=== PATIENT | male | born 1980 | race Caucasian/White ===

== ENCOUNTER → 2020-10-06 | Outpatient (CLI) | payer MEDICAID, SELFPAY ==
--- NOTE | 2020-10-06 09:30 | VAS_PTH ---
PATIENT: FREDI RUSSELL LOC: ED U#:[id number] AGE/SX: 40/M ROOM: RE10/06/[address]: Dr. Juan C Calles MD : 1980 BED: DIS: 10/06/2020 SPEC #: [id number] RECD: 10/06/20 11:25 STATUS: SMITH RODNEY #: [id number] MONICA: 10/06/20 09:[address]: Juan C Calles DEPT: SURGICAL PATHOLOGY RECD BY: Diamond Dooley ENTERED: 10/06/20 12:09 SP TYPE: VAS OTHR DR: Dr. Damien Calles III, MD Tissues: A - Vas deferens, NOS B - Vas deferens, NOS Procedures: Surgery Specimen Level II HEADER OPERATION: Bilateral partial vasectomy PRE-OP DIAGNOSIS: Sterilization TISSUE SUBMITTED: A - Right vas deferens, B - Left vas deferens MICROSCOPIC DIAGNOSIS A. Right vas deferens, segmental vasectomy: Complete cross-section of vas deferens with no pathologic change. B. Left vas deferens, segmental vasectomy: Complete cross-section of vas deferens with no pathologic change. AM:pablito 10/09/2020 MICROSCOPIC DESCRIPTION Slides are reviewed. GROSS DESCRIPTION A - Received is one container designated right vas deferens. The specimen consists of a tubular segment of smith soft tissue measuring 1 cm in length and 0.1 cm in diameter. The entire specimen is submitted in one cassette. It will be sectioned at the time of embedding. B - Received is one container designated left vas deferens. The specimen consists of a tubular segment of smith soft tissue measuring 1.5 cm in length and 0.2 cm in diameter. The entire specimen is submitted in one cassette. It will be sectioned at the time of embedding. / SANTOSH:pablito 10/06/20 TC:4 CPT: 46240 x2
== END | disposition home or self-care (01) ==
LOC: LABSPEC 11:33
PROVIDERS: PCP Family Medicine; Referring Provider Surgery; Visit Provider Surgery
DX: Z30.2 Encounter for sterilization (principal)
CPT/HCPCS: 88302

== ENCOUNTER → 2020-10-30 | Outpatient (CLI) | payer MEDICAID, SELFPAY | END | disposition home or self-care (01) | LOC: LABSPEC 09:36 | PROVIDERS: PCP Family Medicine; Visit Provider Surgery | DX: Z30.2 Encounter for sterilization (principal) | CPT/HCPCS: 89321 ==

== ENCOUNTER → 2020-11-21 | Outpatient (CLI) | payer MEDICAID, SELFPAY | END | disposition home or self-care (01) | PROVIDERS: PCP Family Medicine; Referring Provider Surgery; Visit Provider Surgery | DX: Z30.2 Encounter for sterilization (principal) ==

== ENCOUNTER → 2020-12-20 | Outpatient (CLI) | payer MEDICAID, SELFPAY ==
[2020-12-21 13:08] LABS: Semen Analysis Post Vas REVIEWED
== END | disposition home or self-care (01) ==
PROVIDERS: Surgery; PCP Family Medicine; Referring Provider Family Medicine; Visit Provider Family Medicine
DX: Z30.2 Encounter for sterilization (principal)
CPT/HCPCS: 89321

== ENCOUNTER 2025-07-04 18:19 | Emergency (ER) | payer MEDICAID, SELFPAY ==
[2025-07-04 18:21] VITALS: BP 129/71; PULSE 59; RESP 18; TEMP 36.9; O2SAT 98; BMI 29.0
[2025-07-04 18:38] LABS: Mucous, Urine 0 SEEN /hpf (<or=2+); Red Blood Cells-Urine 0 SEEN /hpf (0-5); Squamous Epithelial Cells - UA 0 SEEN /hpf (0-5)
[2025-07-04 19:00] LABS: Hematocrit 41.6 % (40-54); Hemoglobin 14.6 g/dL (13.0-16.5); Immature Granulocytes Count 0.020 X10^3/uL (0.0-0.0); Mean Corp Hgb Conc 35.1 g/dL (32-36); Mean Corpuscular Volume 91.8 fL (80-94); Mean Platelet Vol. 9.4 fl (6.2-12.0); NRBC Flagged by Analyzer 0 % (0-5); Platelet Count 183 K/mm3 (150-450); RBC Distribution Width CV 11.9 % (11.6-14.6); RBC Distribution Width SD 40.0 fl (35.1-43.9); Red Blood Count 4.53 M/mm3 (4.6-6.2); White Blood Count 6.9 K/mm3 (4.4-11.0)
[2025-07-04 19:23] LABS: AST(SGOT) 26 U/L (<=37); Alanine Aminotransfer ALT/SGPT 26 U/L (<=46); Albumin, Serum 4.6 g/dL (3.5-5.0); Alkaline Phosphatase 71 U/L (40-129); Anion Gap 10 (7-18); BUN 13 mg/dL (4-19); BUN/Creat Ratio 13.6 RATIO (10-20); Calcium,Total 9.4 mg/dL (7.6-11.0); Carbon Dioxide 26.0 mmol/L (20.0-29.0); Chloride 104 mmol/L (96-106); Estimated Creatinine Clearance 99.82 ml/min (50-250); Globulin 2.2 g/dL (2.2-4.2); Glucose 89 mg/dL (70-99); Potassium 4.1 mmol/L (3.5-5.1)
[2025-07-04 19:32] LABS: Color, Urine Straw (Yellow); Glucose, Dipstick Normal (Normal); Ketone-Dipstick Negative (Negative); Leukocyte Esterase-Dipstick Negative /ul (Negative); Nitrite-Dipstick Negative (Negative); Occult Blood-Urine Negative /ul (Negative); Protein-Dipstick Negative (Negative); Specific Gravity, Urine 1.015 (1.002-1.030); Urine Bilirubin Dipstick Negative (Negative)
[2025-07-04 20:19] VITALS: BP 131/82; PULSE 61; O2SAT 100
--- NOTE | 2025-07-04 20:42 | ED.VIS.GI ---
HPI HPI - GI History of Present Illness Chief Complaint: Abd Pain Informant: patient Narrative Narrative: 45-year-old male presented to the emergency room chief complaint of abdominal pain. Patient states that today he developed a pain just below his umbilicus into the right inguinal region. He states he feels an awful lot like when he had a hernia that was repaired on the left side. Denies any nausea vomiting or diarrhea in fact notes some mild constipation. He denies any fevers. He notes no urinary symptoms. There is a familial history of kidney stones. [facility] Medical History GERD (gastroesophageal reflux disease) Encounter for sterilization Home Medications ?Medication ?Instructions ?Recorded ?Last Taken ?Type naproxen sodium 220 mg tablet 220 mg PO BID PRN 09/28/20 Unknown History (Aleve) ibuprofen 400 mg tablet 400 mg PO Q8H 01/03/23 Unknown History Allergy/AdvReac Type Severity Reaction Status Date / Time No Known Allergies Allergy Verified 07/04/25 18:20 Family History Father No problems noted. Surgical History History of vasectomy (~10/2020) History of left inguinal hernia repair History of tooth extraction History of back surgery History of adenoidectomy History of myringotomy Social History Smoking Status: Current some day smoker tobacco type: cigarettes ROS ROS ED Constitutional Constitutional ED: Denies chills, fever(s) or weight loss Eyes Eyes: Denies change in vision or diplopia ENT ENT ED: Denies ear pain, rhinorrhea or sore throat Cardiovascular Cardiovascular: Denies chest pain, orthopnea, palpitations or racing heartbeat Respiratory/Chest Respiratory/Chest: Denies cough, dyspnea or orthopnea Gastrointestinal Gastrointestinal: Reports abdominal pain; Denies diarrhea, nausea or vomiting Genitourinary Genitourinary ED: Denies dysuria, hematuria or urinary frequency Musculoskeletal Musculoskeletal: Denies arthralgias or myalgias Integumentary Denies abscess or rash Neurologic Neurologic: Denies headache(s) or weakness Psychiatric Psychiatric: Denies anxiety, depression, suicidal ideation or suicidal thoughts Endocrine Endocrinology: Denies polydipsia, polyphagia or polyuria Allergic/Immunologic Allergic/Immunologic ED: Denies mouth swelling, tongue swelling or urticaria EXAM Physical Exam Const Vital Signs: 07/04/25 18:21 07/04/25 20:19 07/04/25 22:00 Temperature 98.5 F Temperature Source Oral Pulse Rate 59 L 61 59 L Respiratory Rate 18 16 Blood Pressure 129/71 H 131/82 H 131/76 H Blood Pressure Mean 90 98 94 Pulse Ox 98 100 99 Oxygen Delivery Method Room Air Room Air Room Air 07/04/25 22:25 Temperature 98 F Temperature Source Pulse Rate 59 L Respiratory Rate 16 Blood Pressure 131/76 H Blood Pressure Mean 94 Pulse Ox 99 Oxygen Delivery Method Positive well nourished and well developed General Appearance ED: well developed and NAD HEENT Reports normocephalic, head/scalp atraumatic and moist mucous membranes Eyes PERRL and EOMs intact bilaterally Neck no lymphadenopathy, supple and no JVD Resp normal respiratory effort and clear to auscultation bilaterally Cardio regular rate, regular rhythm and no murmurs GI non-distended and no masses Auscultation: normoactive bowel sounds Palpation: soft and tender RLQ and suprapubic; Negative for guarding, rigid or rebound tenderness present Back/Spine no CVA tenderness and normal ROM Extremity normal to inspection General Extremety ED: Negative for edema General Extremity: Negative for edema Neuro oriented x3 and CN's II-XII intact bilaterally Sensorium / Orientation: alert Motor Exam: strength 5/5 throughout Psych mental status grossly normal Mood & Affect: Negative for depressed or tearful Skin no rashes or lesions noted and no wounds MDM MDM MDM Narrative Medical decision making narrative: Differential diagnosis includes but not limited to appendicitis diverticulitis colitis hernia ureterolithiasis Basic blood work was normal shows a white count of 6.9 with a normal differential. Urinalysis with no hematuria or obvious infection. CT of the abdomen pelvis does not demonstrate any findings to explain his pain. However I do not see anything emergent. Would recommend PCP follow-up if not improving return if worsening or concerns History & Record Review Discussion w/independent historian: Patient Lab Data Attestation: I reviewed the patient's lab results. Labs: Laboratory Results - last 24 hr 07/04/25 07/04/25 18:30 18:46 WBC 6.9 RBC 4.53 L Hgb 14.6 Hct 41.6 MCV 91.8 MCH 32.2 H MCHC 35.1 RDW Std Deviation 40.0 RDW Coeff of Ana Laura 11.9 Plt Count 183 MPV 9.4 Immature Gran % (Auto) 0.300 Neut % (Auto) 68.9 Lymph % (Auto) 21.3 [place] % (Auto) 8.3 Eos % (Auto) 0.9 Baso % (Auto) 0.3 Absolute Neuts (auto) 4.7 Absolute Lymphs (auto) 1.46 Nucleated RBC % 0 Sodium 140 Potassium 4.1 Chloride 104 Carbon Dioxide 26.0 Anion Gap 10 BUN 13 Creatinine 0.99 Estim Creat Clear Calc 99.82 Est GFR (MDRD) Non-Af 96 BUN/Creatinine Ratio 13.6 Glucose 89 Calcium 9.4 Total Bilirubin 2.02 H AST 26 ALT 26 Alkaline Phosphatase 71 Total Protein 6.7 Albumin 4.6 Globulin 2.2 Albumin/Globulin Ratio 2.1 Urine Color Straw Urine Clarity Clear Urine pH 6.0 Ur Specific Coleman 1.015 Urine Protein Negative Urine Glucose (UA) Normal Urine Ketones Negative Urine Occult Blood Negative Urine Nitrite Negative Urine Bilirubin Negative Urine Urobilinogen Normal Ur Leukocyte Esterase Negative Urine RBC 0 SEEN Urine WBC 0 SEEN Ur Squamous Epith Cells 0 SEEN Urine Bacteria 0 SEEN Urine Mucus 0 SEEN Radiography Diagnostic Testing: Clinical Impression(s) from Imaging Studies Abdomen/Pelvis CT 07/04/25 21:00 IMPRESSION: No acute or active inflammatory intra-abdominal pathology. Normal appendix. Reading Location: [id number] Discharge Plan Triage Chief Complaint: Abd Pain ED Provider: Luis Reno Dx/Rx/DC Orders Clinical Impression: Abdominal pain, acute Instructions: Abdominal Pain Prescriptions: No Action naproxen sodium [Aleve] 220 mg tablet 220 mg PO BID PRN ibuprofen 400 mg tablet 400 mg PO Q8H Primary Care Provider: Jareth Newberry Referrals: Jareth Newberry DPM [Primary Care Provider, Medical] Print Language: Setswana Disposition Disposition: Home, Self Care Discharge Date/Time: 07/04/25 22:54
[2025-07-04] MEDS: Ketorolac 30 MG/ML Syringe IV (20:47)
--- NOTE | 2025-07-04 21:00 | CT_ITS ---
PROCEDURE: CT ABDOMEN/PELVIS W IV CONT ONLY 07/04/2025 REASON FOR EXAM: RLQ PAIN TECHNIQUE: Procedure Code: [id number] Modality: CT Procedure: ABDOMEN/PELVIS W IV CONT ONLY Coronal and Sagittal reconstruction series were provided. CONTRAST: Isovue 370 VOLUME: 89 mL One or more dose reduction techniques were used (e.g., Automated exposure control, adjustment of the mA and/or kV according to patient size, use of iterative reconstruction technique. RADIATION DOSE SUMMARY: DLP: 976.86 mGycm COMPARISON: None. FINDINGS: Lung bases: Clear. Liver: Mild diffuse hepatic steatosis. Few scattered small hypodense lesions too small to definitively characterize but most likely benign cysts and/or hemangiomata. Gallbladder: Unremarkable. No biliary ductal dilatation. Spleen: Unremarkable. Pancreas: Unremarkable. Adrenals: Unremarkable. Kidneys: Unremarkable. No urolithiasis or hydronephrosis. Bladder: Unremarkable. Reproductive Organs: Unremarkable. Nonenlarged prostate. Bowel: No evidence of obstruction or active inflammation. Normal appendix. Lymph nodes: No suspicious lymph node enlargement. Vasculature: Normal caliber abdominal aorta. Mild atherosclerotic disease. Peritoneum / Retroperitoneum: No ascites or free air. Bones: Partially imaged postoperative changes to the lower thoracolumbar spine with metallic wilberto fixation hardware of the posterior elements. CT/Abdomen/Pelvis W IV Cont ONLY IMPRESSION: No acute or active inflammatory intra-abdominal pathology. Normal appendix. Reading Location: [id number]
--- OUTSIDE RECORDS SUMMARY | 2025-07-04 21:17 | XMS RPT_ITS | CCD ---
Author Organization [facility] Care Team Providers Care Public Health Worker Name Role Phone Unavailable Primary Care Provider Enoc Ayala Attending Unavailable Tyshawn Hill Attending Unavailable Enoc Andrews Attending Unavailable Unavailable Primary Care Provider Nima Wagner MD Primary Care Provider Podlogar REGISTERED RADIOLOGIC TECHNOLOGIST.Cinthia GARNETT Unavailable Podlogar REGISTERED RADIOLOGIC TECHNOLOGIST.Cinthia GARNETT Unavailable [place]le REGISTERED RADIOLOGIC TECHNOLOGIST.Ilene GARNETT Unavailable MELANY NEWBERRY Attending Finn mcghee SELF Referring Unavailable [facility] Primary Care Unavai lable [place]le REGISTERED RADIOLOGIC TECHNOLOGIST.Ilene GARNETT Unavailable Katherine Newberry DOland Aleks Primary Care Provid er SANDIE TREVINO Referring Unavailable NIMA VILLALTA Primary Care Unavailab NIMA Pillai Primary Care Unavailab NIMA Pillai Primary Care Unavailab CINTHIA Norris Attending Unavailable YARIEL CARTER Referring Unavailable TESTRAKELUZ Referring Unavailable TESTRAKELUZ Attending Unavailable TESTRAKELUZ Referring Unavailable TESTRAKELUZ Referring Unavailable TESTRAKE, LUZ Attending Unavailable SELF Referring Unavailable YARIEL CARTER Attending Unavailable TESTLUZ ROSAS Attending Unavailable MELANY NEWBERRY Referring Unavai lable ROHITH [facility] ALEKS Primary Care Unavai lable Medications Current Medications Medication Drug Class(es) Dates Sig (Normalized) Sig (Original) amoxicillin 875 mg / clavulanate 125 mg oral tablet (2 sources) Penicillin-class Antibacterial Start: 5 End: 5 take 1 tablet by mouth twice daily amoxicillin-clavulana te potassium (AUGMENTIN) 875-125 mg per tablet Take 1 tablet by mouth two times a day for 7 days. 14 tablet 10/19/2024 10/26/2024 Active ASHWAGANDHA ROOT EXTRACT PO (2 sources) ASHWAGANDHA ROOT EXTRACT PO Take by mouth. Active Creatine (2 sources) creatine monohyd rate (CREATINE ORAL) Take by mouth. Active MEDICATION, NON-DATABASE (2 sources) MEDICATION, NON-DATABASE [id number] Active methylPREDNISolone (2 sources) Corticosteroid Start: End: methylPREDNISolone (MEDROL, HALIMA,) 4 mg Dose-Pack Take as directed 21 tablet 03/30/2024 04/05/2024 Active polyethylene glycol 3350 172464 mg / potassium chloride 2970 mg / sodium bicarbonate 6740 mg / sodium chloride 5860 mg / sodium sulfate 74543 mg powder for oral solution (1 source) Osmotic Laxative Start: End: peg 3350-Electrolytes (GOLYTELY) 236-22.74-6.74 -5.86 gram suspension Indications: Screening for colon cancer Take 4,000 mL by mouth one time only for 1 dose. Refer to printed prep instructions from your provider. 4000 mL 04/20/2024 04/20/2024 Active SHILAJIT PO (2 sources) SHILAJIT PO Take by mouth. Active Completed/Discontinued Medications Medication Drug Class(es) Dates Sig (Normalized) Sig (Original) benzonatate 100 mg oral capsule (3 sources) Non-narcotic Antitussive Start: 10-19-2024 End: 03-11-2025 take 1 capsule by mouth every eight hours as needed benzonatate (TESSALON PERLE) 100 mg capsule Take 1 capsule by mouth three times a day as needed. 21 capsule 10/19/2024 03/11/2025 Discontinued (Course of therapy completed) dexamethasone 1 mg/ml / neomycin 3.5 mg/ml / polymyxin b 60680 unt/ml ophthalmic suspension (7 sources) Aminoglycoside Antibacterial, Polymyxin-class Antibacterial, Corticosteroid Start: 11-07-2022 End: 04-20-2024 take 1 drop(s) into the eye(s) three times daily NEOMYCIN-POLYMYXI N-DEXAMETH 3.5 MG/ML-10,000 UNIT/ML-0.1% EYE DROPS Use 1 Drop in both eyes three times daily. 5 mL 11/07/2022 04/20/2024 Discontinued (Course of therapy completed) Start: 11-07-2022 take 1 drop(s) into the eye(s) three times daily LMRVHZXL-AXEUWQPCB-WWDHXSRG 3.5 MG/ML-10,000 UNIT/ML-0.1% EYE DROPS Use 1 Drop in both eyes three times daily. 5 mL 0 11/07/2022 Active Comment on above: Use 1 Drop in both e yes three times daily. erythromycin 0.005 mg/mg ophthalmic ointment (2 sources) Macrolide, Macrolide Antimicrobial Start: 10-28-19 End: 11-08-19 apply 3.5 g into the eye(s) twice daily erythromycin (ROMYCIN) 5 mg/gram (0.5 %) ophthalmic ointment Apply along lash line/upper eyelids twice a day for one week 3.5 g 0 10/27/2022 11/07/2022 Discontinued Comment on above: Apply along lash juan e/upper eyelids twice a day for one week ibuprofen 200 mg oral tablet (20 sources) Nonsteroidal Anti-inflammatory Drug Start: 05-09-20 End: 10-28-19 take 200-400 mg by mouth every six hours as needed ibuprofen (MOTRIN) 200 mg tablet Take 1-2 tablets by mouth every 6 hours as needed for Pain (Take with food.). 0 05/09/2014 10/27/2022 Discontinued (Course of therapy completed) End: 03-11-2025 take 1 tablet by mouth every six hours as needed ibuprofen (MOTRIN) 600 mg tablet Take 600 mg by mouth every 6 hours as needed for pain. 03/11/2025 Discontinued (Side Effects) Comment on above: Take 1-2 tablets by mouth every 6 hours as needed for Pain (Take with food.). naproxen sodium 220 mg oral tablet (20 sources) Nonsteroidal Anti-inflammatory Drug Start: 4 End: take 1 tablet by mouth twice daily at mealtime naproxen sodium (ANAPROX) 220 mg tablet Take 1 tablet by mouth twice daily with meals. TAKE WITH FOOD 0 05/09/2014 10/27/2022 Discontinued (Course of therapy completed) End: 03-11-2025 naproxen sodium (ALEVE ORAL) Take by mouth. 03/11/2025 Discontinued (Course of therapy completed) naproxen sodium (ALEVE ORAL) Take by mouth. Active Comment on above: Take 1 tablet by abhilash th twice daily with meals. TAKE WITH FOOD Problems Active Problems Problem Classification Problem Date Documented Da te Episodic/Chronic Administrative/social admission (4 sources) First encounter by subject; Translations: [Persons encountering health services in other specified circumstances] Onset: 5 04-20-2024 Episodic Anxiety disorders (7 sources) Mixed anxiety and depressive disorder; Translations: [Anxiety disorder, unspecified] Onset: 5 07-16-2024 Chronic Contraceptive and procreative management (1 source) Vasectomy status; Translations: [History of vasectomy] Onset: Episodic Immunizations and screening for infectious disease (5 sources) Patient encounter status; Translations: [Encounter for screening for human immunodeficiency virus [HIV]] 04-20-2024 Episodic Inflammation; infection of eye (except that caused by tuberculosis or sexually transmitteddisease) (2 sources) Blepharitis of bilateral upper eyelids; Translations: [Unspecified blepharitis right upper eyelid] Episodic Mood disorders (2 sources) Mood disorders; Translations: [Anxiety and depression] Onset: Other acquired deformities (1 source) Postural kyphosis; Translations: [Postural kyphosis, thoracic region] 04-20-2024 Chronic Other acquired deformities (1 source) Unspecified kyphosis, site unspecified; Translations: [Kyphosis, unspecified kyphosis type, unspecified spinal region] Onset: Chronic Other acquired deformities (3 sources) Kyphosis deformity of spine; Translations: [Unspecified kyphosis, site unspecified] Onset: 5 03-13-2025 Chronic Other and unspecified benign neoplasm (3 sources) Neuroma; Translations: [Benign neoplasm of peripheral nerves and autonomic nervous system, unspecified] 03-30-2024 Episodic Other connective tissue disease (4 sources) Capsulitis; Translations: [Other enthesopathies, not elsewhere classified] 03-30-2024 Episodic Other connective tissue disease (2 sources) Pain in right foot; Translations: [Pain in right foot] 05-04-2024 Episodic Other gastrointestinal disorders (1 source) Personal history of other diseases of the digestive system; Translations: [History of hernia repair] Onset: 5 Episodic Other injuries and conditions due to external causes (1 source) Injury of right foot; Translations: [Unspecified injury of right foot, sequela] 05-28-2024 Episodic Other lower respiratory disease (2 sources) Cough; Translations: [Acute cough] 10-19-2024 Episodic Other male genital disorders (2 sources) Spermatocele of epididymis, unspecified; Translations: [Spermatocele] Onset: Episodic Other male genital disorders (2 sources) Spermatocele; Translations: [Spermatocele of epididymis, unspecified] 03-13-2025 Episodic Other non-traumatic joint disorders (2 sources) Acute ankle pain; Translations: [Pain in right ankle and joints of right foot] 03-01-2024 Episodic Other upper respiratory infections (1 source) Acute upper respiratory infection; Translations: [Acute upper respiratory infection, unspecified] 10-19-2024 Episodic Otitis media and related conditions (1 source) Acute left otitis media; Translations: [Otitis media, unspecified, left ear] 10-19-2024 Episodic Residual codes; unclassified (2 sources) Other specified postprocedural states; Translations: [Other specified postprocedural states] Onset: 3 Episodic Residual codes; unclassified (1 source) Family history of malignant neoplasm of other organs or systems; Translations: [Family history of malignant neoplasm of skin] Onset: 5 Episodic Residual codes; unclassified (3 sources) History of hernia repair; Translations: [Other specified postprocedural states] Onset: 5 03-13-2025 Episodic Residual codes; unclassified (3 sources) Family history of malignant neoplasm of skin; Translations: [Family history of malignant neoplasm of other organs or systems] Onset: 5 03-13-2025 Episodic Spondylosis; intervertebral disc disorders; other back problems (1 source) Chronic low back pain; Translations: [Chronic bilateral low back pain without sciatica] 04-20-2024 Episodic Substance-related disorders (2 sources) Cannabis abuse; Translations: [Cannabis abuse, uncomplicated] Onset: 5 07-16-2024 Chronic Unclassified (1 source) Low back pain, unspecified; Translations: [Low back pain, unspecified] Onset: 3 Unclassified (1 source) Acute cough; Translations: [Acute cough] Onset: 5 Unclassified (1 source) Multiple Concerns Onset: 4 Past or Other Problems Problem Classification Problem Date Documented Da te Episodic/Chronic Abdominal pain (20 sources) Inguinal pain; Translations: [Lower abdominal pain, unspecified] Onset: 07-31-2015 Resolved: 07-19-2016 07-19-2016 Episodic E Codes: Natural/environment (5 sources) Repetitive motion disorder; Translations: [Overexertion from repetitive movements, initial encounter] Onset: 05-27-2024 05-04-2024 Episodic Other and unspecified benign neoplasm (1 source) Benign neoplasm of peripheral nerves and autonomic nervous system, unspecified; Translations: [Neuroma] Onset: 05-17-2024 Episodic Other connective tissue disease (20 sources) Chronic pain of right foot; Translations: [Pain in right foot] Onset: 10-06-2023 03-01-2024 Episodic Other connective tissue disease (20 sources) Myofascial pain; Translations: [Myalgia, other site] Onset: 09-04-2015 Resolved: 07-19-2016 07-19-2016 Episodic Other connective tissue disease (1 source) Other enthesopathies, not elsewhere classified; Translations: [Capsulitis of foot, right] Onset: 05-17-2024 Episodic Other connective tissue disease (1 source) Pain in right foot; Translations: [Right foot pain] Onset: 05-04-2024 Episodic Residual codes; unclassified (20 sources) Tobacco use and exposure - finding; Translations: [Tobacco use] Onset: 07-30-2018 07-30-2018 Episodic Unclassified (1 source) First encounter by subject 03-13-2025 Results Test Name Value Interpretation Reference Range Facility CBC W Auto Differential pane l (Bld)on 03-18-2025 Basophils (Bld) [#/Vol] 10*3/uL Normal <0.11 [facility] Comment on above: Order Comment: Speci men Type: BLOOD SPECIMENOrdering Facility: [facility] Address: [address] [place] [address] Performed By: #### 5 7021-8 ####[facility] [id number] [place] [address] [place] Basophils/100 WBC (Bld) 0.2 % Normal [facility] Comment on above: Order Comment: Speci men Type: BLOOD SPECIMENOrdering Facility: [facility] Address: [address] [place] [address] Performed By: #### 5 7021-8 ####[facility]CL[facility] [id number] [place] [address] [place] Differential cell count method Nom (Bld) Auto Normal [facility] Comment on above: Order Comment: Speci men Type: BLOOD SPECIMENOrdering Facility: [facility] Address: [address] [place] [address] Performed By: #### 5 7021-8 ####[facility] [id number] [place] [address] [place] Eosinophils (Bld) [#/Vol] 0.07 10*3/uL Normal <0.46 [facility] Comment on above: Order Comment: Speci men Type: BLOOD SPECIMENOrdering Facility: [facility] Address: [address] [place] [address] Performed By: #### 5 7021-8 ####[facility] [id number] [place] [address] [place] Eosinophils/100 WBC (Bld) 1.6 % Normal [facility] Comment on above: Order Comment: Speci men Type: BLOOD SPECIMENOrdering Facility: [facility] Address: [address] [place] [address] Performed By: #### 5 7021-8 ####[facility] [id number] [place] [address] [place] Erythrocyte distribution width (RBC) [Ratio] 11.9 % Normal 11.5-15.0 [facility] Comment on above: Order Comment: Speci men Type: BLOOD SPECIMENOrdering Facility: [facility] Address: [address] [place] [address] Performed By: #### 5 7021-8 ####[facility] [id number] [place] [address] [place] Hematocrit (Bld) [Volume fraction] 43.0 % Normal 39.0-51.0 [facility] Comment on above: Order Comment: Speci men Type: BLOOD SPECIMENOrdering Facility: [facility] Address: [address] [place] [address] Performed By: #### 5 7021-8 ####[facility] [id number] [place] [address] [place] Hemoglobin (Bld) [Mass/Vol] 15.1 g/dL Normal 13.0-17.0 [facility] Comment on above: Order Comment: Speci men Type: BLOOD SPECIMENOrdering Facility: [facility] Address: [address] [place] [address] Performed By: #### 5 7021-8 ####[facility]IA [id number] [place] [address] [place] Immature granulocytes (Bld) [#/Vol] 10*3/uL Normal <0.10 [facility] Comment on above: Order Comment: Speci men Type: BLOOD SPECIMENOrdering Facility: [facility] Address: [address] [place] [address] Performed By: #### 5 7021-8 ####[facility]IA [id number] [place] [address] [place] Immature granulocytes/100 WBC (Bld) 0.2 % Normal [facility] Comment on above: Order Comment: Speci men Type: BLOOD SPECIMENOrdering Facility: [facility] Address: [address] [place] [address] Performed By: #### 5 7021-8 ####[facility] [id number] [address], [facility] [place] Lymphocytes (Bld) [#/Vol] 1.90 10*3/uL Normal 1.00-4.00 [facility] Comment on above: Order Comment: Speci men Type: BLOOD SPECIMENOrdering Facility: [facility] Address: [address] [place] [address] Performed By: #### 5 7021-8 ####[facility] [id number] [address], [place] [address] [place] Lymphocytes/100 WBC (Bld) 42.3 % Normal [facility] Comment on above: Order Comment: Speci men Type: BLOOD SPECIMENOrdering Facility: [facility] Address: [address] [place] [address] Performed By: #### 5 7021-8 ####[facility] [id number] [address], [facility] [place] MCH (RBC) [Entitic mass] 31.7 pg Normal 26.0-34.0 [facility] Comment on above: Order Comment: Speci men Type: BLOOD SPECIMENOrdering Facility: [facility] Address: [address] [place] [address] Performed By: #### 5 7021-8 ####[facility] [id number] [address], [facility] [place] MCHC (RBC) [Mass/Vol] 35.1 g/dL Normal 30.5-36.0 [facility] Comment on above: Order Comment: Speci men Type: BLOOD SPECIMENOrdering Facility: [facility] Address: [address] [place] [address] Performed By: #### 5 7021-8 ####[facility] [id number] [place] [id number] [place] MCV (RBC) [Entitic vol] 90.3 fL Normal 80.0-100.0 [facility] Comment on above: Order Comment: Speci men Type: BLOOD SPECIMENOrdering Facility: [facility] Address: [address] [place] [address] Performed By: #### 5 7021-8 ####[facility] [id number] [place] [address] [place] Monocytes (Bld) [#/Vol] 0.34 10*3/uL Normal <0.87 [facility] Comment on above: Order Comment: Speci men Type: BLOOD SPECIMENOrdering Facility: [facility] Address: [address] [place] [address] Performed By: #### 5 7021-8 ####[facility] [id number] [place] [address] [place] Monocytes/100 WBC (Bld) 7.6 % Normal [facility] Comment on above: Order Comment: Speci men Type: BLOOD SPECIMENOrdering Facility: [facility] Address: [address] [place] [address] Performed By: #### 5 7021-8 ####[facility] [id number] [place] [address] [place] Neutrophils (Bld) [#/Vol] 2.16 10*3/uL Normal 1.45-7.50 [facility] Comment on above: Order Comment: Speci men Type: BLOOD SPECIMENOrdering Facility: [facility] Address: [address] [place] [address] Performed By: #### 5 7021-8 ####[facility] [id number] [place] [address] [place] Neutrophils/100 WBC (Bld) 48.1 % Normal [facility] Comment on above: Order Comment: Speci men Type: BLOOD SPECIMENOrdering Facility: [facility] Address: [address] [place] [address] Performed By: #### 5 7021-8 ####[facility] [id number] [place] [address] [place] Nucleated RBC (Bld) [#/Vol] 10*3/uL Normal <0.01 [facility] Comment on above: Order Comment: Speci men Type: BLOOD SPECIMENOrdering Facility: [facility] Address: [address] [place] [address] Performed By: #### 5 7021-8 ####[facility] LABIA [id number] [place] [address] [place] Nucleated RBC/100 WBC (Bld) [Ratio] 0.0 /100 WBC Normal [facility] Comment on above: Order Comment: Speci men Type: BLOOD SPECIMENOrdering Facility: [facility] Address: [address] [place] [address] Performed By: #### 5 7021-8 ####[facility]IA [id number] [place] [address] [place] Platelet mean volume (Bld) [Entitic vol] 10.2 fL Normal 9.0-12.7 [facility] Comment on above: Order Comment: Speci men Type: BLOOD SPECIMENOrdering Facility: [facility] Address: [address] [place] [address] Performed By: #### 5 7021-8 ####[facility] [id number] [place] [id number] [place] Platelets (Bld) [#/Vol] 207 10*3/uL Normal 150-400 [facility] Comment on above: Order Comment: Speci men Type: BLOOD SPECIMENOrdering Facility: [facility] Address: [address] [place] [address] Performed By: #### 5 7021-8 ####[facility] [id number] [address] [address] [place] RBC (Bld) [#/Vol] 4.76 10*6/uL Normal 4.20-6.[address] [facility] Comment on above: Order Comment: Speci men Type: BLOOD SPECIMENOrdering Facility: [facility] Address: [address] [place] [address] Performed By: #### 5 7021-8 ####[facility] [id number] [address] [place] [address] [place] WBC (Bld) [#/Vol] 4.49 10*3/uL Normal 3.70-11.[address] [facility] Comment on above: Order Comment: Speci men Type: BLOOD SPECIMENOrdering Facility: [facility] Address: [address] [place] [address] Performed By: #### 5 7021-8 ####[facility] [id number] [address], [facility] [place] Comprehensive metabolic 2000 panelon 03-18-2025 Albumin [Mass/Vol] 4.7 g/dL Normal 3.9-4.9 [facility] Comment on above: Order Comment: Speci men Type: BLOOD SPECIMENOrdering Facility: [facility] Address: [address] [place] [address] Performed By: #### 2 4323-8, 17517-3, 3016-3 ####[facility] [id number] [address] [place] [address] [place] ALP [Catalytic activity/Vol] 65 U/L Normal 38-113 [facility] Comment on above: Order Comment: Speci men Type: BLOOD SPECIMENOrdering Facility: [facility] Address: [address] [place] [address] Performed By: #### 2 4323-8, 05681-3, 3016-3 ####[facility] [id number] [address] [place] [address] [place] ALT [Catalytic activity/Vol] 16 U/L Normal 10-54 [facility] Comment on above: Order Comment: Speci men Type: BLOOD SPECIMENOrdering Facility: [facility] Address: [address] [place] [address] Performed By: #### 2 4323-8, 52948-8, 3016-3 ####[facility]CL[facility] [id number] [place] [id number] [place] Anion gap [Moles/Vol] 15 mmol/L Normal 8-15 [facility] Comment on above: Order Comment: Speci men Type: BLOOD SPECIMENOrdering Facility: [facility] Address: [address] [place] [address] Performed By: #### 2 4323-8, 93531-5, 6-3 ####[facility]CL[facility] [id number] [place] [id number] [place] AST [Catalytic activity/Vol] 18 U/L Normal 14-40 [facility] Comment on above: Order Comment: Speci men Type: BLOOD SPECIMENOrdering Facility: [facility] Address: [address] [place] [address] Performed By: #### 2 4323-8, 18051-0, 6-3 ####[facility]CL[facility] [id number] [place] [id number] [place] Bilirubin [Mass/Vol] 2.1 mg/dL High 0.2-1.3 [facility] Comment on above: Order Comment: Speci men Type: BLOOD SPECIMENOrdering Facility: [facility] Address: [address] [place], [place] [address] Performed By: #### 2 4323-8, 90605-4, 3016-3 ####[facility] [id number] [facility] [address] [place] [address] [place] Calcium [Mass/Vol] 9.5 mg/dL Normal 8.5-10.2 [facility] Comment on above: Order Comment: Speci men Type: BLOOD SPECIMENOrdering Facility: [facility] Address: [address] [place], [place] [address] Performed By: #### 2 4323-8, 41773-0, 3016-3 ####[facility]CL[facility] [id number] [facility] [address] [address] [place] Chloride [Moles/Vol] 104 mmol/L Normal 98-107 [facility] Comment on above: Order Comment: Speci men Type: BLOOD SPECIMENOrdering Facility: [facility] Address: [address] [place], [place] [address] Performed By: #### 2 4323-8, 63902-9, 6-3 ####[facility] [id number] [address] [address] [place] CO2 [Moles/Vol] 21 mmol/L Low 22-30 [facility] Comment on above: Order Comment: Speci men Type: BLOOD SPECIMENOrdering Facility: [facility] Address: [address] [place], [place] [address] Performed By: #### 2 4323-8, 63488-4, 6-3 ####[facility] [id number] [address] [address] [place] Creatinine [Mass/Vol] 0.96 mg/dL Normal 0.73-1.22 [facility] Comment on above: Order Comment: Speci men Type: BLOOD SPECIMENOrdering Facility: [facility] Address: [address] [place] [address] Performed By: #### 2 4323-8, 66530-4, 6-3 ####[facility] LABCLIA [id number] [facility] [address] [place] [address] [place] eGFRcr SerPlBld CKD-EPI 2020 99 mL/min/1.73m??? Normal >=60 [facility] Comment on above: Order Comment: Eric perla Type: BLOOD SPECIMENOrdering Facility: [facility] Address: [address] [id number] Result Comment: Kristina mated Glomerular Filtration Rate (eGFR) is calculated using the 2020 CKD-EPI creatinine equation. This equation utilizes serum creatinine, sex, and age as parameters. The creatinine assay has traceable calibration to isotope dilution-mass spectrometry. Refer to KDIGO guidelines for clinical interpretation. In patients with unstable renal function, e.g. those with acute kidney injury, the eGFR may not accurately reflect actual GFR. Performed By: #### 2 4323-8, 12068-0, 3015-3 ####[facility] LABIA [id number] [place] [id number] [place] Glucose [Mass/Vol] 92 mg/dL Normal 74-99 [facility] Comment on above: Order Comment: Eric perla Type: BLOOD SPECIMENOrdering Facility: [facility] Address: [address] [place] [address] Result Comment: The [place] Diabetes Association (ADA) provides guidance for cutoff values for fasting glucose and random glucose. The ADA defines fasting as no caloric intake for at least 8 hours. Fasting plasma glucose results between 100 to 125 mg/dL indicate increased risk for diabetes (prediabetes). Fasting plasma glucose results greater than or equal to 126 mg/dL meet the criteria for diagnosis of diabetes. In the absence of unequivocal hyperglycemia, results should be confirmed by repeat testing. In a patient with classic symptoms of hyperglycemia or hyperglycemic crisis, random plasma glucose results greater than or equal to 200 mg/dL meet the criteria for diagnosis of diabetes. Reference: Standards of Medical Care in Diabetes 2016, [place] Diabetes Association. Diabetes Care. 2016.39(Suppl 1). Performed By: #### 2 4323-8, 22965-0, 3 ####[facility] LABIA [id number] [address] [address] [place] Potassium [Moles/Vol] 4.4 mmol/L Normal 3.7-5.1 [facility] Comment on above: Order Comment: Eric perla Type: BLOOD SPECIMENOrdering Facility: [facility] Address: [address] [place] [address] Performed By: #### 2 4323-8, 87672-4, 6-3 ####[facility] LABIA [id number] [address] [address] [place] Protein [Mass/Vol] 6.8 g/dL Normal 6.3-8.0 [facility] Comment on above: Order Comment: Speci men Type: BLOOD SPECIMENOrdering Facility: [facility] Address: [address] [place] [address] Performed By: #### 2 4323-8, 32472-0, 3015-3 ####[facility] LABIA [id number] [place] [id number] [place] Sodium [Moles/Vol] 140 mmol/L Normal 136-144 [facility] Comment on above: Order Comment: Speci men Type: BLOOD SPECIMENOrdering Facility: [facility] Address: [address] [place] [address] Performed By: #### 2 4323-8, 74005-1, 3015-3 ####[facility] LABIA [id number] [place] [address] [place] Urea nitrogen [Mass/Vol] 17 mg/dL Normal 9-24 [facility] Comment on above: Order Comment: Speci men Type: BLOOD SPECIMENOrdering Facility: [facility] Address: [address] [place] [address] Performed By: #### 2 4323-8, 03840-4, 3015-3 ####[facility] LABIA [id number] [address] [address] [place] Lipid 1996 panelon 5 Cholesterol [Mass/Vol] 195 mg/dL Normal <200 [facility] Comment on above: Order Comment: Speci men Type: BLOOD SPECIMENOrdering Facility: [facility] Address: [address], [place] [address] Result Comment: <200 mg/dL, Desirable 200-239 mg/dL, Borderline high >239 mg/dL, High Performed By: #### 2 4323-8, 36856-1, 6-3 ####[facility] LABCLIA [id number] [facility] [address] [address] [place] Cholesterol in HDL [Mass/Vol] 59 mg/dL Normal >39 [facility] Comment on above: Order Comment: Speci men Type: BLOOD SPECIMENOrdering Facility: [facility] Address: [address] [place] [address] Result Comment: 40-5 9 mg/dL, Acceptable >59 mg/dL, High: Negative risk factor for coronary heart disease <40 mg/dL, Low: Positive risk factor for coronary heart disease Performed By: #### 2 4323-8, 41242-4, 3015-3 ####[facility] LABCLIA [id number] [facility] [address] [place] [address] [place] Cholesterol in LDL [Mass/Vol] 125 mg/dL High <100 [facility] Comment on above: Order Comment: Speci men Type: BLOOD SPECIMENOrdering Facility: [facility] Address: [address] [place] [address] Result Comment: <100 mg/dL, Optimal 100-129 mg/dL, Near optimal/above optimal 130-159 mg/dL, Borderline high 160-189 mg/dL, High >189 mg/dL, Very high Secondary prevention optimal LDL Cholesterol levels are recommended to be <70 mg/dL LDL cholesterol is calculated using the [place]-NIH equation. Performed By: #### 2 4323-8, 00229-6, 3015-3 ####[facility] LABCLIA [id number] [facility] [id number] [place] [address] [place] Cholesterol in LDL/Cholesterol in HDL [Mass ratio] 2.12 {ratio} Normal <2.54 [facility] Comment on above: Order Comment: Speci men Type: BLOOD SPECIMENOrdering Facility: [facility] Address: [address] [place] [address] Result Comment: Refe rence: 1. National Cholesterol Education Program ATP III Guideline At-A-Glance Quick Desk Reference: National Heart, Lung, and Blood Ant[place]. National Institutes of Health. 2001: NIH Publication No. 01-3305. 2. An International Atherosclerosis Society position paper: global recommendations for the management of dyslipidemia: executive summary, Atherosclerosis. 2014: 232(2):410-413. Performed By: #### 2 4323-8, 55534-9, 3016-3 ####[facility] LABCLIA [id number] [address] [address] [place] Cholesterol in VLDL [Mass/Vol] 10 mg/dL Normal <30 [facility] Comment on above: Order Comment: Eric perla Type: BLOOD SPECIMENOrdering Facility: [facility] Address: [address] [place] [address] Performed By: #### 2 4323-8, 30745-7, 3016-3 ####[facility] LABIA [id number] [address] [address] [place] Cholesterol non HDL [Mass/Vol] 136 mg/dL High <130 [facility] Comment on above: Order Comment: Eric perla Type: BLOOD SPECIMENOrdering Facility: [facility] Address: [address] [place] [address] Result Comment: <130 mg/dL, Optimal 130-159 mg/dL, Near optimal/above optimal 160-189 mg/dL, Borderline high 190-219 mg/dL, High >219 mg/dL, Very high Secondary prevention optimal non HDL Cholesterol levels are recommended to be <100 mg/dL Performed By: #### 2 4323-8, 09792-6, 3016-3 ####[facility] LABIA [id number] [address] [address] [place] Cholesterol.total/Chol esterol in HDL [Mass ratio] 3.31 {ratio} Normal <5.10 [facility] Comment on above: Order Comment: Eric perla Type: BLOOD SPECIMENOrdering Facility: [facility] Address: [facility] [place] [id number] Performed By: #### 2 4323-8, 90888-3, 3016-3 ####[facility] LABCLIA [id number] [place] [id number] [place] FASTING TIME 12 hrs Normal [facility] Comment on above: Order Comment: Speci men Type: BLOOD SPECIMENOrdering Facility: [facility] Address: [address] [place] [address] Performed By: #### 2 4323-8, 85854-7, 6-3 ####[facility] LABCLIA [id number] [address], [facility]95 [place] Triglyceride [Mass/Vol] 58 mg/dL Normal <150 [facility] Comment on above: Order Comment: Speci men Type: BLOOD SPECIMENOrdering Facility: [facility] Address: [address] [place] [address] Result Comment: <150 mg/dL, Normal 150-199 mg/dL, Borderline high 200-499 mg/dL, High >499 mg/dL, Very high Performed By: #### 2 4323-8, 78872-5, 6-3 ####[facility] LABIA [id number] [place] [address] [place] TSH SerPl-aCncon 03-18-2025 TSH Qn 1.590 m[IU]/L Normal 0.270-4.200 [facility] Comment on above: Order Comment: Speci men Type: BLOOD SPECIMENOrdering Facility: [facility] Address: [address] [place], [place] [address] Performed By: #### 2 4323-8, 26248-2, 6-3 ####[facility] LABCLIA [id number] [address] [id number] [place] Urinalysis complete panel (U )on 03-18-2025 Bacteria LM.HPF (Urine sed) [#/Area] Negative Normal Negative [facility] Comment on above: Order Comment: Speci men Type: URINE SPECIMENOrdering Facility: [facility] Address: [address] [place] [address] Performed By: #### 2 4356-8 ####[facility] LABCLIA [id number] [address] [place] [address] [place] Bilirubin Ql (U) Negative Normal Negative [facility] Comment on above: Order Comment: Speci men Type: URINE SPECIMENOrdering Facility: [facility] Address: [address] [place] [address] Performed By: #### 2 4356-8 ####[facility] LABCLIA [id number] [place] [address] [place] Clarity (Unsp spec) Clear Normal Clear [facility] Comment on above: Order Comment: Speci men Type: URINE SPECIMENOrdering Facility: [facility] Address: [address] [place] [address] Performed By: #### 2 4356-8 ####[facility] LABCLIA [id number] [place] [id number] [place] Color (U) Yellow Normal Yellow [facility] Comment on above: Order Comment: Speci men Type: URINE SPECIMENOrdering Facility: [facility] Address: [address] [place] [address] Performed By: #### 2 4356-8 ####[facility] LABCLIA [id number] [address], [facility]95 [place] Epithelial cells LM.HPF (Urine sed) [#/Area] None Seen Normal [facility] Comment on above: Order Comment: Speci men Type: URINE SPECIMENOrdering Facility: [facility] Address: [address] [place] [address] Performed By: #### 2 4356-8 ####[facility] LABCLIA [id number] [address], [facility]95 [place] Glucose Test strip (U) [Mass/Vol] Negative Normal Negative [facility] Comment on above: Order Comment: Speci men Type: URINE SPECIMENOrdering Facility: [facility] Address: [address] [place] [address] Performed By: #### 2 4356-8 ####[facility] LABCLIA [id number] [address] [place] [address] [place] Hemoglobin Ql (U) Negative Normal Negative [facility] Comment on above: Order Comment: Speci men Type: URINE SPECIMENOrdering Facility: [facility] Address: [address] [place] [address] Performed By: #### 2 4356-8 ####[facility] LABCLIA [id number] [place] [address] [place] Hyaline casts (Urine sed) [#/Area] 0 /[LPF] Normal 0 /LPF [facility] Comment on above: Order Comment: Speci men Type: URINE SPECIMENOrdering Facility: [facility] Address: [address] [place] [address] Performed By: #### 2 4356-8 ####[facility] LABCLIA [id number] [place] [address] [place] Ketones Ql (U) Negative Normal Negative [facility] Comment on above: Order Comment: Speci men Type: URINE SPECIMENOrdering Facility: [facility] Address: [address] [place] [address] Performed By: #### 2 4356-8 ####[facility] LABCLIA [id number] [place] [id number] [place] Leukocyte esterase Test strip Ql (U) Negative Normal Negative [facility] Comment on above: Order Comment: Speci men Type: URINE SPECIMENOrdering Facility: [facility] Address: [address] [place] [address] Performed By: #### 2 4356-8 ####[facility] LABCLIA [id number] [place] [address] [place] Nitrite Ql (U) Negative Normal Negative [facility] Comment on above: Order Comment: Speci men Type: URINE SPECIMENOrdering Facility: [facility] Address: [address] [place] [address] Performed By: #### 2 4356-8 ####[facility] LABIA [id number] [place] [address] [place] pH (U) 7.5 [pH] Normal 5.0-8.0 [facility] Comment on above: Order Comment: Speci men Type: URINE SPECIMENOrdering Facility: [facility] Address: [address] [place] [address] Performed By: #### 2 4356-8 ####[facility] LABIA [id number] [place] [address] [place] Protein (U) [Mass/Vol] Negative Normal Negative [facility] Comment on above: Order Comment: Speci men Type: URINE SPECIMENOrdering Facility: [facility] Address: [address] [place] [address] Performed By: #### 2 4356-8 ####[facility] LABIA [id number] [place] [address] [place] RBC LM.HPF (Urine sed) [#/Area] 0-2 /HPF Normal 0-2 /HPF [facility] Comment on above: Order Comment: Speci men Type: URINE SPECIMENOrdering Facility: [facility] Address: [address] [place] [address] Performed By: #### 2 4356-8 ####[facility] LABIA [id number] [place] [address] [place] Specific gravity (U) [Rel density] 1.022 Normal 1.005-1.030 [facility] Comment on above: Order Comment: Speci men Type: URINE SPECIMENOrdering Facility: [facility] Address: [address] [place] [address] Performed By: #### 2 4356-8 ####[facility] [id number] [place] [address] [place] Urobilinogen Ql (U) 0.2 EU/dL Normal 0.2-1.0 EU/dL Cl [facility] Comment on above: Order Comment: Speci men Type: URINE SPECIMENOrdering Facility: [facility] Address: [address] [place] [address] Performed By: #### 2 4356-8 ####[facility] [id number] [place] [address] [place] WBC LM.HPF (Urine sed) [#/Area] 0-5 /HPF Normal 0-5 /HPF [facility] Comment on above: Order Comment: Speci men Type: URINE SPECIMENOrdering Facility: [facility] Address: [address] [place] [address] Performed By: #### 2 4356-8 ####[facility] [id number] [place] [address] [place] CNOVon 03-11-2025 CNOV Office Visit (FPDOYL ) EDVIN TRAMMELL ([id number]) 1980 M Date Time Provider Department 03/11/25 3:45 PM MELANY NEWBERRY During your visit today, we recorded the following information about you: Temperature Pulse Blood pressure Weight 98.3 degrees 74/minute 120/70 86.2 kg Height 1.727 m Melany Newberry DO 03/13/2025 7:07 PM Signed Subjective The patient is a 45-year-old male presenting for evaluation of a six-month history of a testicular lump. Testicular Lump: - Edvin Trammell noticed a lump on the testicle approximately 6 months ago. - Appeared after a vasectomy. - Edvin reports a history of a hernia repair, with subsequent scrotal discomfort. Skin Lesions: - Multiple skin lesions, some of which are new. - Lesions are not raised but start off itchy. - Family history of melanoma in mother. Kyphosis: - Edvin underwent back surgery with wilberto placement for kyphosis. - Reports that the rods are now broken. Foot Injury: - Torn ligament in the foot from soccer. - Has been over a year since Edvin was last seen by a doctor for this issue. Lifestyle: - Works in construction. - Exercises regularly, including push-ups. - Does not smoke; consumes marijuana nightly before bed. - Drinks alcohol occasionally. - Recently stopped drinking soda and completed a 96-hour water fast. - Eats gluten-free bread. Family History: - Mother has melanoma and degenerative disc disease. - Full-blooded brother had a severe hiatal hernia. Additional Concerns: - Edvin reports occasional lightheadedness after exercise. - Occasional chest pain, attributed to physical activity. - Nocturia resolved after fasting. - No issues with erectile dysfunction; reports improvement after fasting. - Experiences stress related to family and work. Review of Systems Ears/Nose/Mouth/Throat : (-) dysphagia Cardiovascular: (+) chest pain Respiratory: (-) shortness of breath Gastrointestinal: (-) nausea, (-) vomiting, (-) diarrhea, (-) constipation, (-) hematochezia, (-) heartburn Genitourinary: (+) testicular lump, (-) nocturia, (-) erectile dysfunction Skin: (+) pruritus, (+) skin lesions Neurological: (+) lightheadedness PAST MEDICAL HISTORY Diagnosis Date Back pain Kyphosis PAST SURGICAL HISTORY Procedure Laterality Date ORAL SURGERY PROCEDURE wisdom teeth PAST SURGICAL HISTORY OF Left 07/07/2007 LT thumb partial amputaition PAST SURGICAL HISTORY OF 07/07/1995 Kyphosis repair PAST SURGICAL HISTORY OF tubes in ears PAST SURGICAL HISTORY OF adenoids removed RPR 1ST INGUN HRNA AGE 4 YRS/> REDUCIBLE 12/05/2012 Hernia repair, inguinal, left FAMILY HISTORY Problem Relation Age of Onset other (spine issue) Mother Systemic Lupus Erythematosus Father other (hiatal hernia) Brother other (ETOH) Maternal Grandmother Leukemia Maternal Grandmother other (ETOH) Maternal Grandfather No Known Problems Paternal Grandmother No Known Problems Paternal Grandfather No Ocular Disease No Family History SOCIAL HISTORY[1] Current Outpatient Medications Medication Sig RADHA ROOT EXTRACT PO Take by mouth. MEDICATION, NON-DATABASE [id number] creatine monohydrate (CREATINE ORAL) Take by mouth. SHILAJIT PO Take by mouth. No current facility-administered medications for this visit. Objective BP 120/70 (BP Site: Left Arm, BP Position: Sitting) Pulse 74 Temp 36.8 ?C (98.3 ?F) Ht 5' 8 (1.727 m) Wt 190 lb (86.2 kg) SpO2 99% BMI 28.89 kg/m? Physical Exam GENERAL: NAD, alert and oriented. SKIN: Multiple lesions noted, some pruritic. HEAD: Normocephalic. EYES: PERRLA, EOMI, conjunctiva clear. EARS: External ears normal, canals clear, TM's normal. NOSE/SINUSES: Nares normal. Septum midline. OROPHARYNX: Lips, mucosa, and tongue normal, good dentition. No oral lesions noted. NECK: Supple, no lymphadenopathy, normal thyroid, no carotid bruits. LUNGS: Clear to auscultation bilaterally, no wheezes/rhonchi/rales. HEART: Regular rate and rhythm, no murmurs. No ectopy. EXTREMITIES: Normal, no deformities, no skin discoloration, no edema. NEURO: Awake, alert and oriented x3, cranial nerves II-XII grossly intact, normal gait, no involuntary motions. GENITOURINARY: Palpable mass on testicle consistent with hydrocele or spermatocele. Labs: Tests: Imaging: - X-ray: Chaudhry rods are broken. Assessment AND Plan 1. Spermatocele (N43.40) - Exam findings consistent with spermatocele; no evidence of malignancy. - Discussed benign nature of spermatocele and provided reassurance. - Will perform scrotal ultrasound to confirm diagnosis. 2. Anxiety and depression (F41.9) - Patient reports significant life stressors related to family and work. 3. Encounter to establish care (Z76.89) - Ordered baseline labs: CBC, CMP, TSH, and lipid panel. 4. History of vasecto (more content not included)... Normal [facility] CNOVon 10-19-2024 CNOV Office Visit (UCWSTR ) EDVIN TRAMMELL ([id number]) 1980 M Date Time Provider Department 10/19/24 11:[address] [facility] During your visit today, we recorded the following information about you: Temperature Pulse Respiration Blood pressure 98.8 degrees 75/minute 16/minute 140/84 Weight 96.7 kg Sandie Trevino APRN.SIDE STITCHING MACHINE OPERATOR 10/19/2024 2:09 PM Signed [facility] Subjective Edvin Trammell is a 44 year old male. Patient presents with: Cough: Cough, ST, MIX, congestion, fever x 6-7 days 44 year old male with no PMH presents for illness Acute onset 6 days ago +cough +productive +fever, 101 Denies CP Denies dyspnea Denies abdominal pain Denies N/V/D Nicotine pouches Has used Mucinex Night time and day time medicine The history is provided by the patient. No foreign language instructor was used. Cough This is a new problem. The current episode started more than 2 days ago. The problem occurs constantly. The problem has been gradually worsening. The cough is Productive of sputum. The maximum temperature recorded prior to his arrival was 101 to 101.9 F. Pertinent negatives include no chest pain, no chills, no sweats, no weight loss, no ear congestion, no ear pain, no headaches, no rhinorrhea, no sore throat, no myalgias, no shortness of breath, no wheezing and no eye redness. Treatments tried: OTC medicines. The treatment provided no relief. He is not a smoker. His past medical history does not include bronchitis, pneumonia, bronchiectasis, COPD, emphysema or asthma. PAST MEDICAL HISTORY Diagnosis Date Back pain Kyphosis PAST SURGICAL HISTORY Procedure Laterality Date PAST SURGICAL HISTORY OF Left 2008 LT thumb partial amputaition PAST SURGICAL HISTORY OF 89 Kyphosis repair RPR 1ST INGUN HRNA AGE 4 YRS/> REDUCIBLE 12/2012 Hernia repair, inguinal, left ALLERGIES Patient has no known allergies. MEDICATIONS ibuprofen (MOTRIN) 600 mg tablet Take 600 mg by mouth every 6 hours as needed for pain. naproxen sodium (ALEVE ORAL) Take by mouth. amoxicillin-clavulanat e potassium (AUGMENTIN) 875-125 mg per tablet Take 1 tablet by mouth two times a day for 7 days. benzonatate (TESSALON PERLE) 100 mg capsule Take 1 capsule by mouth three times a day as needed. FAMILY HISTORY Problem Relation Age of Onset other (spine issue) Mother Systemic Lupus Erythematosus Father other (hiatal hernia) Brother other (ETOH) Maternal Grandmother Leukemia Maternal Grandmother other (ETOH) Maternal Grandfather No Known Problems Paternal Grandmother No Known Problems Paternal Grandfather No Ocular Disease No Family History Social History Tobacco Use Smoking status: Some Days Current packs/day: 0.00 Types: Cigarettes Last attempt to quit: 09/2023 Years since quittin.1 Smokeless tobacco: Current Types: Chew Vaping Use Vaping status: Never Used Substance Use Topics Alcohol use: Yes Comment: once a week 3-5 beers Drug use: Yes Types: Marijuana Review of Systems Constitutional: Negative for chills and weight loss. HENT: Negative for ear pain, rhinorrhea and sore throat. Eyes: Negative for pain, discharge, redness and itching. Respiratory: Positive for cough. Negative for shortness of breath and wheezing. Cardiovascular: Negative for chest pain. Gastrointestinal: Negative for abdominal pain, diarrhea, nausea and vomiting. Musculoskeletal: Negative for myalgias. Skin: Negative for color change, pallor, rash and wound. Allergic/Immunologic: Negative for environmental allergies, food allergies and immunocompromised state. Neurological: Negative for dizziness, facial asymmetry and headaches. Hematological: Negative for adenopathy. Does not bruise/bleed easily. Psychiatric/Behavioral : Negative for agitation and behavioral problems. Objective BP 140/84 Pulse 75 Temp 37.1 ?C (98.8 ?F) (Tympanic) Resp 16 Wt 96.7 kg (213 lb 3 oz) SpO2 96% BMI 32.39 kg/m? Physical Exam Vitals and nursing note reviewed. Constitutional: General: He is not in acute distress. Appearance: Normal appearance. He is not ill-appearing, toxic-appearing or diaphoretic. HENT: Head: Normocephalic and atraumatic. Right Ear: External ear normal. Left Ear: External ear normal. Ears: Comments: Left TM erythematous and bulging Nose: Nose normal. No congestion or rhinorrhea. Mouth/Throat: Mouth: Mucous membranes are moist. Pharynx: Oropharynx is clear. Posterior oropharyngeal erythema present. No oropharyngeal exudate. Eyes: General: Right eye: No discharge. Left eye: No discharge. Extraocular Movements: Extraocular movements intact. Conjunctiva/sclera: Conjunctivae normal. Pupils: Pupils are equal, round, and reactive to light. Cardiovascular: Rate and Rhythm: Normal rate and regular rhythm. Pulses: Normal pulses. Heart sounds: Normal heart sound (more content not included)... Normal [facility] XR CHEST 2V FRONTAL/LATon XR CHEST 2V FRONTAL/LAT * * *Final Report* * * DATE OF EXAM: Oct 19 2024 11:40AM WOX [id number] - XR CHEST 2V FRONTAL/LAT / PROCEDURE REASON: Acute cough * * * * Physician Interpretation * * * * EXAMINATION: CHEST RADIOGRAPH (2 VIEW FRONTAL and LATERAL) CLINICAL HISTORY: Acute cough MQ: XC2_6 EXAM DATE/TIME: 10/19/2024 11:40 AM COMPARISON: No relevant prior studies available. RESULT: Lines, tubes, and devices: None. Lungs and pleura: No consolidation. No lung mass. No pleural effusion. No pneumothorax. Cardiomediastinal silhouette: Normal cardiomediastinal silhouette. Bones and soft tissues: Spinal rods transfix the thoracolumbar spine. Question of fracture in the surgical parallel rods at the level of the mid thoracic spine vs placement of four rods for which correlation with surgical history and prior radiographs is requested. IMPRESSION: 1. No radiographic evidence of acute cardiopulmonary process. 2.Spinal rods transfix the thoracolumbar spine. Question of fracture in the surgical parallel rods at the level of the mid thoracic spine vs placement of four rods for which correlation with surgical history and prior radiographs is requested. Costume Maker: [email or web address] Transcribe Date/Time: Oct 19 2024 11:44A Dictated by : GILBERTO MCKEON MD This examination was interpreted and the report reviewed and electronically signed by: GILBERTO MCKEON MD on Oct 19 2024 11:51AM EST [id number] Normal [facility] XR Chest PA and Lateralon IMPRESSION: 1. No radiographic evidence of acute cardiopulmonary process. 2.Spinal rods transfix the thoracolumbar spine. Question of fracture in the surgical parallel rods at the level of the mid thoracic spine vs placement of four rods for which correlation with surgical history and prior radiographs is requested. Costume Maker: [email or web address] Transcribe Date/Time: Oct 19 2024 11:44A Dictated by : GILBERTO MCKEON MD This examination was interpreted and the report reviewed and electronically signed by: GILBERTO MCKEON MD on Oct 19 2024 11:51AM EST DIVISION OF RADIOLOGY * * *Final Report* * * DATE OF EXAM: Oct 19 2024 11:40AM WOX [id number] - XR CHEST 2V FRONTAL/LAT / PROCEDURE REASON: Acute cough * * * * Physician Interpretation * * * * EXAMINATION: CHEST RADIOGRAPH (2 VIEW FRONTAL & LATERAL) CLINICAL HISTORY: Acute cough MQ: XC2_6 EXAM DATE/TIME: 10/19/2024 11:40 AM COMPARISON: No relevant prior studies available. RESULT: Lines, tubes, and devices: None. Lungs and pleura: No consolidation. No lung mass. No pleural effusion. No pneumothorax. Cardiomediastinal silhouette: Normal cardiomediastinal silhouette. Bones and soft tissues: Spinal rods transfix the thoracolumbar spine. Question of fracture in the surgical parallel rods at the level of the mid thoracic spine vs placement of four rods for which correlation with surgical history and prior radiographs is requested. DIVISION OF RADIOLOGY Provider, [facility] - 10/19/2024 * * *Final Report* * * DATE OF EXAM: Oct 19 2024 11:40AM WOX [id number] - XR CHEST 2V FRONTAL/LAT / PROCEDURE REASON: Acute cough * * * * Physician Interpretation * * * * EXAMINATION: CHEST RADIOGRAPH (2 VIEW FRONTAL & LATERAL) CLINICAL HISTORY: Acute cough MQ: XC2_6 EXAM DATE/TIME: 10/19/2024 11:40 AM COMPARISON: No relevant prior studies available. RESULT: Lines, tubes, and devices: None. Lungs and pleura: No consolidation. No lung mass. No pleural effusion. No pneumothorax. Cardiomediastinal silhouette: Normal cardiomediastinal silhouette. Bones and soft tissues: Spinal rods transfix the thoracolumbar spine. Question of fracture in the surgical parallel rods at the level of the mid thoracic spine vs placement of four rods for which correlation with surgical history and prior radiographs is requested. IMPRESSION IMPRESSION: 1. No radiographic evidence of acute cardiopulmonary process. 2.Spinal rods transfix the thoracolumbar spine. Question of fracture in the surgical parallel rods at the level of the mid thoracic spine vs placement of four rods for which correlation with surgical history and prior radiographs is requested. Costume Maker: [email or web address] Transcribe Date/Time: Oct 19 2024 11:44A Dictated by : GILBERTO MCKEON MD This examination was interpreted and the report reviewed and electronically signed by: GILBERTO MCKEON MD on Oct 19 2024 11:51AM EST [facility] Radiology Study observation (narrative) [facility] XR Chest PA and LateralOrder ed By: [facility] Provider on 10-19-2024 [facility] CNOVon 07-16-2024 CNOV Office Visit (SOLAWS ) EDVIN TRAMMELL ([id number]) 1980 M Date Time Provider Department 07/16/24 12:40 PM CINTHIA LARA During your visit today, we recorded the following information about you: Pulse Respiration Blood pressure Weight 77/minute 16/minute 132/74 92.9 kg Height 1.728 m Cinthia Lara APRN.SIDE STITCHING MACHINE OPERATOR 07/16/2024 2:21 PM Signed 07/16/2024 Patient presents with: Establish Care SUBJECTIVE: This is a 44 year old that is here today for Above Complaints.. Tries to eat higher protein. Play soccer 2-3 times per week. Admits to anxiety/depressive symptoms. Not interested in medication at this time. Attended counseling in the past but not currently. Denies SI or HI. Uses marijuana nightly to help with sleep ALECIA: 9 PHQ9: 21 Past medical, surgical, family, social hx, medications, allergies and health maintenance reviewed and updated PAST MEDICAL HISTORY Diagnosis Date Back pain Kyphosis ALLERGIES Patient has no known allergies. MEDICATIONS Current Outpatient Medications Medication Sig ibuprofen (MOTRIN) 600 mg tablet Take 600 mg by mouth every 6 hours as needed for pain. naproxen sodium (ALEVE ORAL) Take by mouth. No current facility-administered medications for this visit. Medications and allergies reviewed by this provider. SOCIAL HISTORY Social History Tobacco Use Smoking status: Former Current packs/day: 0.00 Types: Cigarettes Quit date: 09/2023 Years since quittin.8 Smokeless tobacco: Never Vaping Use Vaping status: Never Used Substance Use Topics Alcohol use: No Drug use: No REVIEW OF SYSTEMS GENERAL: No weight loss, malaise or fevers HEENT: Negative for frequent or significant headaches, No changes in hearing. no nose bleeds or other nasal problems NECK: Negative for lumps, goiter, pain and significant neck swelling RESPIRATORY: Negative for cough, hemoptysis, wheezing, COPD, dyspnea or shortness of breath CARDIOVASCULAR: Negative for chest pain, leg swelling, hypertension, CHF or palpitations GI: No nausea, vomiting, or diarrhea : No history of dysuria, frequency or incontinence MUSCULOSKELETAL: Negative for joint swelling. Chronic pain in back and hs some generalized joint in hips, knees, shoulders PSYCH: See HPI HEMATOLOGY/LYMPHOLOGY: Negative for prolonged bleeding, bruising easily or swollen nodes ENDOCRINE: Negative for cold or heat intolerance, polyuria, polydipsia and goiter NEURO: No history of headaches, syncope, paralysis, seizures or tremors All other reviewed and negative other than HPI. OBJECTIVE: BP 132/74 Pulse 77 Resp 16 Ht 172.8 cm (5' 8.03) Wt 92.9 kg (204 lb 12.9 oz) SpO2 98% BMI 31.11 kg/m? . Vital signs reviewed by this provider. APPEARANCE Well appearing, alert, in no acute distress, well-hydrated, well nourished. EYES conjunctiva and sclera normal. EARS External ears normal, canals clear NECK Supple, no adenopathy; thyroid symmetric, normal size HEART RRR with normal S1 and S2, no murmurs, no gallops, no JVD appreciated LUNG clear to auscultation. No wheezes, rhonchi or rales ABDOMEN bowel sounds normoactive, no bruits, soft, non-tender, non-distended EXTREMITIES Extremities normal, No deformities, No skin discoloration, and No edema SKIN Skin color, texture, turgor normal, no suspicious rashes or lesions to exposed skin PSYCH: Posture and motor behavior: normal posture and motor behavior Dress, grooming, personal hygiene: normal dress and grooming Facial expression: good eye contact and tearful at times Speech: normal speech Mood: anxious Coherency and relevance of thought: normal thought processes Memory: normal memory Hepatitis C Screening Never done HIV Screening Never done Hepatitis B Vaccine(1 of 3 - 19+ 3-dose series) Never done Pneumococcal Vaccine(1 of 2 - PCV) Never done Lipid Screening Never done Diabetes Screening Never done Colorectal Cancer Screening Never done Influenza Vaccine(1) due on 01/03/2025 Covid-19 Vaccine( - 2023- season) due on 07/16/2025 Depression Screening due on 04/20/2025 Anxiety Screening due on 04/20/2025 DTaP,Tdap,Td Vaccine(2 - Td or Tdap) due on 04/27/2029 HPV Vaccine Aged Out ASSESSMENT/PLAN: 1. Encounter for medical examination to establish care - ICD9: V70.9, ICD10: Z00.00 (primary diagnosis) - Counseled on healthy diet and regular exercise - Colorectal cancer screening - needs to reschedule, verbalizes understanding - Follow up for annual exam in one year - LIPID PANEL BASIC - COMPREHENSIVE METABOLIC PANEL - COMPLETE BLOOD COUNT AND DIFFERENTIAL 2. Anxiety and depression - ICD9: 300.00, 311, ICD10: F41.9, F32.A - patient declining medication - handout of local agencies for counseling provided, counseling encouraged - follow-up as needed 3. Marijuana abuse - ICD9: 305.20, ICD10: F12.10 - cessation (more content not included)... Normal [facility] Cody 05-27-2024 CNOV Office Visit (PODIWS ) EDVIN TRAMMELL ([id number]) 1980 M Date Time Provider Department 05/27/24 3:15 PM LUZ RODRÍGUEZIWCrispin During your visit today, we recorded the following information about you: Crystal Sparrow LPN 05/28/2024 10:17 PM Signed AMB ROOMING INTAKE FLOWSHEET DATA Pain Pain Level: 5 Pain Location: Foot-Right Description: Burning Duration Amount of Time: 6 Duration Units: Months Frequency: Intermittent Intervention/Comfort measure: Medication, Reposition, Cold, Distractions, Emotional Support/Reassurance, Massage Patient presents with: Right Foot - Established Patient, Pain, Follow Up Crystal CHAPIS Sparrow Matthew 05/28/2024 10:17 PM Signed FOLLOW UP PODIATRIC OFFICE VISIT Chief Complaint: This 44 year old who presents for follow up:right foot Patient presents to clinic for follow-up right foot His biggest complaint is burning of right 3rd toe. The burning is located to the dorsal aspect of right 3rd toe. He has been using orthotics and this has helped with pain. He has new xrays to review. He recently had ultrasound. PAIN EVALUATION 05/27/2024 0949 05/27/2024 1540 Pain Level: 5 -- Pain Location: Foot-Right -- Description: Burning -- Duration Amount of Time: 6 -- Duration Units: Months -- Frequency: Continuous Intermittent Intervention/Comfort measure: Medication;Reposition; Cold;Distractions;Emot ional Support/Reassurance;Ma ssage -- No results found for: HBA1C PCP: No primary care provider on file. PAST MEDICAL HISTORY Diagnosis Date Back pain Kyphosis Current Outpatient Medications Medication Sig ibuprofen (MOTRIN) 600 mg tablet Take 600 mg by mouth every 6 hours as needed for pain. naproxen sodium (ALEVE ORAL) Take by mouth. No current facility-administered medications for this visit. ALLERGIES No Known Allergies PAST SURGICAL HISTORY Procedure Laterality Date PAST SURGICAL HISTORY OF Left 2008 LT thumb partial amputaition PAST SURGICAL HISTORY OF 96 Kyphosis repair RPR 1ST INGUN HRNA AGE 4 YRS/> REDUCIBLE 12/2012 Hernia repair, inguinal, left Physical Exam: OBJECTIVE: Constitutional: Pt is a well developed 44 year old male who is alert, oriented, cooperative and in no apparent distress. Eyes: Following during examination. No redness or drainage. Respiratory: RR normal and nonlabored. Even breathing. No evidence of distress. Psychology: Patient is engaged during conversation. Normal affect and mood. Does not appear depressed or anxious. NVSI unchanged from previous visit. Dermatological: Nails 1-5 b/l are normal. Webspaces clean and dry 1-4 b/l. Skin appears well hydrated and supple. good color, texture, turgor. No open lesions present. No callosities present. Musculoskeletal/Orthop aedic: Patient has pain to palpation of right 3rd toe, dorsal pipj No pain of right 3rd interspace - kesha sign Minimal pain to plantar aspect of right 3rd metatarsal Xrays of right foot reviewed. No acute fracture is noted. ASSESSMENT: (M77.8) Capsulitis of foot, right (primary encounter diagnosis) (S99.921S) Plantar plate injury, right, sequela PLAN: Discussed pain in right foot. His pain is primarily a burning sensation to the dorsal aspect of right 3rd toe. The pain has improved with inserts. I reviewed his ultrasound results. Results are suggestive of bursitis vs capsulitis vs plantar plate tearing of right 3rd toe medial aspect. I discussed options not limited to continued use of the inserts, ultrasound guided injection into bursae, taping of the right 3rd toe vs surgical management of possible plantar plate tear. After much discussion, patient has elected to tape the toe and continue with inserts. He will do this for a short period of time and can return to clinic in 3-4 weeks to see how he is doing. Luz Rodríguez DPM Allergies As of Date: 05/27/2024 (No Known Allergies) Date Reviewed: 05/27/2024 Reviewed by: Crystal Sparrow LPN - Fully Assessed Reason for Visit: Established Patient [175] Pain [78] Follow Up [171] Primary Visit Diagnosis:Capsulitis of foot, right [M77.8] Other Visit Diagnosis:Plantar plate injury, right, sequela [S99.921S] Prescriptions as of 05/28/2024 - ibuprofen (MOTRIN) 600 mg tablet Take 600 mg by mouth every 6 hours as needed for pain. - naproxen sodium (ALEVE ORAL) Take by mouth. Problem List As Of Date 05/27/2024 Noted Resolved Unilateral groin pain [R10.30] 07/31/2015 07/19/2016 Myofascial pain [M79.18] 09/04/2015 07/19/2016 Tobacco use [Z72.0] 07/30/2018 Toe pain, chronic, right [M79.674, G89.29] 10/06/2023 Encounter Status:Closed by LUZ RODRÍGUEZ DPM on 05/28/24 Normal [facility] XR FOOT 3V AP/LAT/OBL RTon 1 07-27-2023 XR FOOT 3V AP/LAT/OBL RT * * *Final Report* * * DATE OF EXAM: May 27 2024 3:42PM WRX [id number] - XR FOOT 3V AP/LAT/OBL RT / PROCEDURE REASON: Repetitive stress injury * * * * Physician Interpretation * * * * EXAMINATION: XR FOOT 3V AP/LAT/OBL RT PATIENT/TECHNOLOGIST PROVIDED HISTORY: PT STATES RIGHT FOOT PAIN X 1 YEAR. ATTENTION PROXIMAL PHALANX OF 3RD DIGIT ON AP VIEW CLINICAL INFORMATION: 44 years old Male with Repetitive stress injury. Patient has pain to his right foot. Pain is mostly along 3rd metatarsal. Xrays to evaluate for stress fracture. Past xrays shows stress changes without fracture. TECHNIQUE: XR FOOT 3V AP/LAT/OBL RT Laterality: RIGHT Number of different views (projections): 3 COMPARISON: Radiographs 05/04/2024 RESULT: No acute fracture or periosteal reaction. Joint spaces are maintained. Pes planus. Dorsal tibiotalar and talonavicular osteophytes. IMPRESSION: No acute osseous abnormality. Costume Maker: [email or web address] Transcribe Date/Time: May 29 2024 7:26P Dictated by : SRINATH HENDERSON DO This examination was interpreted and the report reviewed and electronically signed by: SRINATH HENDERSON DO on May 29 2024 7:30PM EST [id number] Normal [facility] Roberto 05-20-2024 CNPN Telephone (PODIWS) EDVIN TRAMMELL ([id number]) 1980 M Date Time Provider Department 05/20/24 BRITTNEYLUZ ROSAS RENEE During your visit today, we recorded the following information about you: Luz Rodríguez 05/20/2024 7:52 PM Signed I called patient and I reviewed his xrays and ultrasound. Most of his pain is along the 3rd metatarsal. Past xrays show thickening of the shaft. This can be present in stress injury. The boot and/or shoe with insert does help with his pain but he still has pain at times. Most of the pain is along the dorsal aspect of foot and not plantar. Ultraound was suggestive of plantar plate tear, capsullitis of the 3rd metatarsal head and synovitis. I would like to repeat xrays. If xrays show no fracture, then it is possible the pain is from the plantar plate/synovitis/bursit is. Options going forward would be to continue with inserts and perhaps taping of the toe. If pain fails to improve, could consider plantar plate repair. I will have patient get xrays. Will call with results. May have him come in to office after xrays reviewed to discuss options/taping technique Luz MelinacadenJASSI Allergies As of Date: 05/20/2024 (No Known Allergies) Date Reviewed: 05/04/2024 Reviewed by: Dalia Cheatham MA - Fully Assessed Reason for Visit: Results [95] Primary Visit Diagnosis:Repetitive stress injury [X50.3XXA] Order(s):XR FOOT GENERAL 3V AP/LAT/OBL RIGHT [[id number]] Order #: [id number] FUTURE Prescriptions as of 05/21/2024 - ibuprofen (MOTRIN) 600 mg tablet Take 600 mg by mouth every 6 hours as needed for pain. - naproxen sodium (ALEVE ORAL) Take by mouth. Problem List As Of Date 05/20/2024 Noted Resolved Unilateral groin pain [R10.30] 07/31/2015 07/19/2016 Myofascial pain [M79.18] 09/04/2015 07/19/2016 Tobacco use [Z72.0] 07/30/2018 Toe pain, chronic, right [M79.674, G89.29] 10/06/2023 Encounter Status:Closed by CRYSTAL SPARROW on 05/21/24 Normal [facility] US FOOT RTon 05-17-2024 US FOOT RT * * *Final Report* * * DATE OF EXAM: May 17 2024 1:25PM [facility] 1142 - US FOOT RT / PROCEDURE REASON: multiple diagnoses * * * * Physician Interpretation * * * * MSK_US RIGHT SECOND AND THIRD INTERMETATARSAL ULTRASOUND: CLINICAL INFORMATION: Pain after an injury to the foot while playing soccer. TECHNIQUE: Sherwood-scale real-time ultrasound of the plantar and dorsal intermetatarsal space and adjacent joint spaces with dynamic imaging and power Doppler was performed. Images were archived for documentation. COMPARISON: X-ray 05/04/2024. FINDINGS: SECOND INTERMETATARSAL SPACE: No Gutierrez's neuroma. No intermetatarsal bursitis. SECOND MTP JOINT: Joint space appears maintained. No acute plantar plate tear.Degenerative changes of the lateral plantar plate. THIRD MTP JOINT: Joint space appears maintained. High-grade tear of the medial plantar plate.Moderate capsulitis with synovitis of the third MTP joint. THIRD INTERMETATARSAL SPACE: No Gutierrez's neuroma. Mild intermetatarsal bursitis. FOURTH MTP JOINT: Joint space appears maintained. No acute plantar plate tear.Plantar plates have an intact appearance. INTRINSIC MUSCLES: The adjacent intrinsic muscles show no gross abnormality. FLEXOR TENDONS: Flexor tendons at the MTP joints appear intact. IMPRESSION: Third MTP plantar plate injury, capsulitis, and synovitis, as detailed. No Gutierrez neuroma. Mild third intermetatarsal bursitis. Costume Maker: BioInsp[employer] TechnologiesKam Transcribe Date/Time: May 17 2024 1:27P Dictated by : TIN EATON MD This examination was interpreted and the report reviewed and electronically signed by: TIN EATON MD on May 17 2024 4:36PM EST [id number] Normal [facility] US Lower extremity - righton 05-17-2024 IMPRESSION: Third MTP plantar plate injury, capsulitis, and synovitis, as detailed. No Gutierrez neuroma. Mild third intermetatarsal bursitis. Costume Maker: [email or web address] Transcribe Date/Time: May 17 2024 1:27P Dictated by : TIN EATON MD This examination was interpreted and the report reviewed and electronically signed by: TIN EATON MD on May 17 2024 4:36PM [facility] DIVISION OF RADIOLOGY * * *Final Report* * * DATE OF EXAM: May 17 2024 1:25PM [facility] 1142 - US FOOT RT / PROCEDURE REASON: multiple diagnoses * * * * Physician Interpretation * * * * MSK_US RIGHT SECOND AND THIRD INTERMETATARSAL ULTRASOUND: CLINICAL INFORMATION: Pain after an injury to the foot while playing soccer. TECHNIQUE: Sherwood-scale real-time ultrasound of the plantar and dorsal intermetatarsal space and adjacent joint spaces with dynamic imaging and power Doppler was performed. Images were archived for documentation. COMPARISON: X-ray 05/04/2024. FINDINGS: SECOND INTERMETATARSAL SPACE: No Gutierrez's neuroma. No intermetatarsal bursitis. SECOND MTP JOINT: Joint space appears maintained. No acute plantar plate tear.Degenerative changes of the lateral plantar plate. THIRD MTP JOINT: Joint space appears maintained. High-grade tear of the medial plantar plate.Moderate capsulitis with synovitis of the third MTP joint. THIRD INTERMETATARSAL SPACE: No Gutierrez's neuroma. Mild intermetatarsal bursitis. FOURTH MTP JOINT: Joint space appears maintained. No acute plantar plate tear.Plantar plates have an intact appearance. INTRINSIC MUSCLES: The adjacent intrinsic muscles show no gross abnormality. FLEXOR TENDONS: Flexor tendons at the MTP joints appear intact. DIVISION OF RADIOLOGY Provider, [facility] - 05/17/2024 * * *Final Report* * * DATE OF EXAM: May 17 2024 1:25PM [facility] 1142 - US FOOT RT / PROCEDURE REASON: multiple diagnoses * * * * Physician Interpretation * * * * MSK_US RIGHT SECOND AND THIRD INTERMETATARSAL ULTRASOUND: CLINICAL INFORMATION: Pain after an injury to the foot while playing soccer. TECHNIQUE: Sherwood-scale real-time ultrasound of the plantar and dorsal intermetatarsal space and adjacent joint spaces with dynamic imaging and power Doppler was performed. Images were archived for documentation. COMPARISON: X-ray 05/04/2024. FINDINGS: SECOND INTERMETATARSAL SPACE: No Gutierrez's neuroma. No intermetatarsal bursitis. SECOND MTP JOINT: Joint space appears maintained. No acute plantar plate tear.Degenerative changes of the lateral plantar plate. THIRD MTP JOINT: Joint space appears maintained. High-grade tear of the medial plantar plate.Moderate capsulitis with synovitis of the third MTP joint. THIRD INTERMETATARSAL SPACE: No Gutierrez's neuroma. Mild intermetatarsal bursitis. FOURTH MTP JOINT: Joint space appears maintained. No acute plantar plate tear.Plantar plates have an intact appearance. INTRINSIC MUSCLES: The adjacent intrinsic muscles show no gross abnormality. FLEXOR TENDONS: Flexor tendons at the MTP joints appear intact. IMPRESSION IMPRESSION: Third MTP plantar plate injury, capsulitis, and synovitis, as detailed. No Gutierrez neuroma. Mild third intermetatarsal bursitis. Costume Maker: [email or web address] Transcribe Date/Time: May 17 2024 1:27P Dictated by : TIN EATON MD This examination was interpreted and the report reviewed and electronically signed by: TIN EATNO MD on May 17 2024 4:36PM EST [facility] Radiology Study observation (narrative) [facility] US Lower extremity - rightOr dered By: [facility] Provider on 05-17-2024 [facility] CNOVon 05-04-2024 CNOV Office Visit (PODIWS ) EDVIN TRAMMELL ([id number]) 1980 M Date Time Provider Department 05/04/24 11:15 AM LUZ RODRÍGUEZ PODIWS During your visit today, we recorded the following information about you: Luz Rodríguez 05/04/2024 11:59 AM Signed FOLLOW UP PODIATRIC OFFICE VISIT Chief Complaint: This 44 year old who presents for follow up:right foot pain Patient presents to clinic for follow-up right foot Continues to complain of pain to the right foot Had an oral steroid which did help but it did not completely resolve his pain He took some time off athletics but recently returned to activity, and the pain returned. He currently reports the pain as 7/10. PAIN EVALUATION 05/02/2024205605/04/2024 1105 Pain Level: 7 7 Pain Location: Foot-Right Foot-Right Description: Burning Burning Duration Amount of Time: 8 -- Duration Units: Months Months Frequency: Continuous Continuous Intervention/Comfort measure: Medication;Reposition; Relaxation;Cold;Distra ctions;Emotional Support/Reassurance;Ex ercise;Heat;Positionin g -- No results found for: HBA1C PCP: No primary care provider on file. PAST MEDICAL HISTORY Diagnosis Date Back pain Kyphosis Current Outpatient Medications Medication Sig ibuprofen (MOTRIN) 600 mg tablet Take 600 mg by mouth every 6 hours as needed for pain. naproxen sodium (ALEVE ORAL) Take by mouth. No current facility-administered medications for this visit. ALLERGIES No Known Allergies PAST SURGICAL HISTORY Procedure Laterality Date PAST SURGICAL HISTORY OF Left 2007 LT thumb partial amputaition PAST SURGICAL HISTORY OF 96 Kyphosis repair RPR 1ST INGUN HRNA AGE 4 YRS/> REDUCIBLE 12/2012 Hernia repair, inguinal, left Physical Exam: OBJECTIVE: Constitutional: Pt is a well developed 44 year old male who is alert, oriented, cooperative and in no apparent distress. Eyes: Following during examination. No redness or drainage. Respiratory: RR normal and nonlabored. Even breathing. No evidence of distress. Psychology: Patient is engaged during conversation. Normal affect and mood. Does not appear depressed or anxious. NVSI unchanged from previous visit. Dermatological: Nails 1-5 b/l are normal. Webspaces clean and dry 1-4 b/l. Skin appears well hydrated and supple. good color, texture, turgor. No open lesions present. No callosities present. Musculoskeletal/Orthop aedic: Patient has pain to palpation of right 3rd metatarsal shaft. Some pain to palpation of right 2nd interspace Pain more apparent to right 3rd metatarsal shaft ASSESSMENT: (D36.10) Neuroma (primary encounter diagnosis) (M77.8) Capsulitis of foot, right (M79.671) Right foot pain (X50.3XXA) Repetitive stress injury PLAN: Discussed pain in right foot. Differential still includes neuroma vs capsulitis vs plantar plate attenuation. Await ultrasound to determine if patient would benefit from an injection Given the pain however along the dorsal 3rd metatarsal shaft, I would like to repeat an xray to assure no stress fracture Given the pain present today, would recommend he continue with rest. Would have patient use pneumatic boot. If xrays are negative and ultrasound inconclusive, consider mri Will hold on injection for now JASSI Ward Amelia, LPN 05/04/2024 11:59 AM Signed Per Cheyenne Sandovalnt was provided with [employer]cast aircast, size L, and instructed/educated in its application, wear, and care. All questions were answered, and patient was able to demonstrate competence with the necessary skills to utilize the above equipment. Billed to [employer] Crystal Sparrow LPN Referring Provider: SELF [200] Allergies As of Date: 05/04/2024 (No Known Allergies) Date Reviewed: 05/04/2024 Reviewed by: Dalia Cheatham MA - Fully Assessed Reason for Visit: Established Patient [175] Pain [78] Primary Visit Diagnosis:Neuroma [D36.10] Other Visit Diagnoses:Capsulitis of foot, right [M77.8] Right foot pain [M79.671] Repetitive stress injury [X50.3XXA] Order(s):XR FOOT GENERAL 3V AP/LAT/OBL RIGHT [8810113] Order #: [id number] FUTURE PNEUMATI WALKING BOOT PREFAB [[id number]] Order #: [id number] Prescriptions as of 05/04/2024 - ibuprofen (MOTRIN) 600 mg tablet Take 600 mg by mouth every 6 hours as needed for pain. - naproxen sodium (ALEVE ORAL) Take by mouth. Problem List As Of Date 05/04/2024 Noted Resolved Unilateral groin pain [R10.30] 07/31/2015 07/19/2016 Myofascial pain [M79.18] 09/04/2015 07/19/2016 Tobacco use [Z72.0] 07/30/2018 Toe pain, chronic, right [M79.674, G89.29] 10/06/2023 Encounter Status:Closed by LUZ RODRÍGUEZ DPM on 05/04/24 [facility] XR FOOT 3V AP/LAT/OBL RTon 1 XR FOOT 3V AP/LAT/OBL RT * * *Final Report* * * DATE OF EXAM: May 04 2024 12:05PM [id number] - XR FOOT 3V AP/LAT/OBL RT / PROCEDURE REASON: multiple diagnoses * * * * Physician Interpretation * * * * TITLE: XR FOOT 3V AP/LAT/OBL RT CLINICAL INDICATION: Foot pain along the third metatarsal. Repetitive stress injury TECHNIQUE: 3 view radiographic study of the right foot COMPARISON: Radiograph dated 03/01/2024 FINDINGS: Mild cortical thickening of the third metatarsal shaft may reflect the sequela of chronic stress injury. No eddi traversing fracture identified. Joint spaces preserved IMPRESSION: Mild cortical thickening of the third metatarsal shaft may reflect the sequela of chronic stress injury. Costume Maker: ELMIRA Transcribe Date/Time: May 04 2024 12:13P Dictated by : GILBERTO MCKEON MD This examination was interpreted and the report reviewed and electronically signed by: GILBERTO MCKEON MD on May 04 2024 12:14PM EST [id number] Normal [facility] XR Foot - right AP and Later al and obliqueon 05-04-2024 IMPRESSION: Mild cortical thickening of the third metatarsal shaft may reflect the sequela of chronic stress injury. Costume Maker: [facility] Transcribe Date/Time: May 04 2024 12:13P Dictated by : GILBERTO MCKEON MD This examination was interpreted and the report reviewed and electronically signed by: GILBERTO MCKEON MD on May 04 2024 12:14PM EST DIVISION OF RADIOLOGY * * *Final Report* * * DATE OF EXAM: May 04 2024 12:05PM [id number] - XR FOOT 3V AP/LAT/OBL RT / PROCEDURE REASON: multiple diagnoses * * * * Physician Interpretation * * * * TITLE: XR FOOT 3V AP/LAT/OBL RT CLINICAL INDICATION: Foot pain along the third metatarsal. Repetitive stress injury TECHNIQUE: 3 view radiographic study of the right foot COMPARISON: Radiograph dated 03/01/2024 FINDINGS: Mild cortical thickening of the third metatarsal shaft may reflect the sequela of chronic stress injury. No eddi traversing fracture identified. Joint spaces preserved DIVISION OF RADIOLOGY Provider, [facility] - 05/04/2024 * * *Final Report* * * DATE OF EXAM: May 04 2024 12:05PM [id number] - XR FOOT 3V AP/LAT/OBL RT / PROCEDURE REASON: multiple diagnoses * * * * Physician Interpretation * * * * TITLE: XR FOOT 3V AP/LAT/OBL RT CLINICAL INDICATION: Foot pain along the third metatarsal. Repetitive stress injury TECHNIQUE: 3 view radiographic study of the right foot COMPARISON: Radiograph dated 03/01/2024 FINDINGS: Mild cortical thickening of the third metatarsal shaft may reflect the sequela of chronic stress injury. No eddi traversing fracture identified. Joint spaces preserved IMPRESSION IMPRESSION: Mild cortical thickening of the third metatarsal shaft may reflect the sequela of chronic stress injury. Costume Maker: ELMIRA Transcribe Date/Time: May 04 2024 12:13P Dictated by : GILBERTO MCKEON MD This examination was interpreted and the report reviewed and electronically signed by: GILBERTO MCKEON MD on May 04 2024 12:14PM EST [facility] Radiology Study observation (narrative) [facility] XR Foot - right AP and Later al and obliqueOrdered By: [facility] Provider on 05-04-2024 [facility] CNOVon 03-30-2024 CNOV Office Visit (PODIWS ) EDVIN TRAMMELL ([id number]) 1980 M Date Time Provider Department 03/30/24 9:00 AM LUZ RODRÍGUEZ PODIWS During your visit today, we recorded the following information about you: Crystal Sparrow LPN 03/30/2024 9:51 AM Signed AMB ROOMING INTAKE FLOWSHEET DATA Pain Pain Level: 7 Pain Location: Toe Description: Burning Duration Amount of Time: 6 Duration Units: Months Frequency: Continuous Intervention/Comfort measure: Medication, Reposition, Relaxation, Cold, Distractions, Emotional Support/Reassurance, Exercise, Heat, Massage, Pillow support, Support surface Patient presents with: Right Foot - New, Swelling, Pain Crystal Sparrow LPN Luz Rodríguez 03/30/2024 9:51 AM Signed Initial Podiatric Office Visit: Chief Complaint: This 44 year old male who presents with chief complaint:right foot pain HPI Patient presents to clinic for evaluation of right foot. Patient complains of pain and burning of the right foot, primarily along the 3rd toe/mtpj States the pain has been present since september. States that he plays soccer and he states that he was wearing a shoe one day that his toe got caught on the stitching and he felt a sudden pop in the 3rd toe He states since this happened, his toe has been swollen and there is pain. 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 Patient does take over the counter nsaids which does help. As long as he is not active, the pain is not as bad. PAIN EVALUATION 03/29/2024 1145 Pain Level: 7 Pain Location: Toe Description: Burning Duration Amount of Time: 6 Duration Units: Months Frequency: Continuous Intervention/Comfort measure: Medication;Reposition; Relaxation;Cold;Distra ctions;Emotional Support/Reassurance;Ex ercise;Heat;Massage;Pi llow support;Support surface No results found for: HBA1C PCP: No primary care provider on file. No past medical history on file. Current Outpatient Medications Medication Sig ibuprofen (MOTRIN) 600 mg tablet Take 600 mg by mouth every 6 hours as needed for pain. naproxen sodium (ALEVE ORAL) Take by mouth. EATUJGJY-OERMSKRFK-JNV AMETH 3.5 MG/ML-10,000 UNIT/ML-0.1% EYE DROPS Use 1 Drop in both eyes three times daily. (Patient not taking: Reported on 03/01/2024) No current facility-administered medications for this visit. ALLERGIES No Known Allergies PAST SURGICAL HISTORY Procedure Laterality Date PAST SURGICAL HISTORY OF Left 2008 LT thumb partial amputaition PAST SURGICAL HISTORY OF 96 Kyphosis repair RPR 1ST INGUN HRNA AGE 4 YRS/> REDUCIBLE 12/2012 Hernia repair, inguinal, left FAMILY HISTORY Problem Relation Age of Onset No Ocular Disease No Family History Social History Tobacco Use Smoking status: Former Current packs/day: 0.00 Types: Cigarettes Quit date: 09/2023 Years since quittin.5 Smokeless tobacco: Never Substance Use Topics Alcohol use: No Drug use: No REVIEW OF SYSTEMS GENERAL: Negative for Malaise, significant weight loss, fever RESPIRATORY: Negative for cough, wheezing and shortness of breath CARDIOVASCULAR: Negative for chest pain, leg swelling and palpitations GI: Negative for abdominal discomfort, blood in stools or black stools and change in bowel habits : Negative for dysuria, frequency and incontinence MUSCULOSKELETAL: Negative for joint pain or swelling, back pain, and muscle pain. SKIN: Negative for lesions, rash, and itching. HEMATOLOGY/LYMPHOLOGY Negative for prolonged bleeding, bruising easily, and swollen nodes. ENDOCRINE: Negative for cold or heat intolerance, polyuria, polydipsia and goiter. NEURO: negative Physical Exam: Constitutional: Pt is a well developed 44 year old male who is alert, oriented and cooperative Eyes: Following during examination. No redness or drainage. Respiratory: RR normal and nonlabored. Even breathing. No evidence of distress or shortness of breath. Psychology: Patient is engaged during conversation. Normal affect and mood. Does not appear depressed or anxious during encounter. Vascular: Dorsalis pedis and posterior tibial pulses palpable as b/l Capillary Fill time < 5 seconds to digits 1-5 b/l Skin temperature warm to warm proximal to distal b/l Hair growth present to digits Neurological: intact light touch/epicritic sensation intact protective sensation no significant neurological deficits Dermatological: Nails 1-5 b/l appear normal. Webspaces clean and dry 1-4 b/l. Skin appears well hydrated and supple. good color, texture, turgor. No open lesions present. No callosities present. Musculoskeletal/Orthop aedic: Patient has pain to palpation of right 2nd and 3rd interspace Foot type is slightly pronated structurally AJ ROM is full with knee extended an (more content not included)... Normal [facility] ED[facility] TRAM[facility]LL ([id number]) 1980 M Date Time Provider Department 03/30/24 MISA TAI JUNE During your visit today, we recorded the following information about you: Misa Tai 03/30/2024 9:51 AM Addendum Visit Type: ANY MSK Visit Length: 45, 50 OR 60 MINUTES Order Name/Protocol: US FOOT RT; GUTIERREZ'S NEUROMA-EVAL RT 2ND+3RD IMS/MTPJ'S FOR NEUROMA VS. PLANTAR PLATE INJURY Preferred Provider: N/A Comment: Please ask if the patient has ever had any prior surgery to their RT second+third toes. If so, upgrade the visit type to an MSK1 and notate the surgical hx in the Appointment Note. Location: Depending on the surgical hx, this patient can have this exam performed at any of our three locations. Slot held: N/A Hannah Villarreal 03/30/2024 10:08 AM Signed Patient has been scheduled for their MSK US exam on 05/17/24 : 12:45 PM at [facility]. Allergies As of Date: 03/30/2024 (No Known Allergies) Date Reviewed: 03/30/2024 Reviewed by: Crystal Sparrow LPN - Fully Assessed Reason for Visit: Appointment [186] Prescriptions as of 03/30/2024 - ibuprofen (MOTRIN) 600 mg tablet Take 600 mg by mouth every 6 hours as needed for pain. - naproxen sodium (ALEVE ORAL) Take by mouth. - methylPREDNISolone (MEDROL, HALIMA,) 4 mg Dose-Pack Take as directed - DIEBWYVP-VKGZIEKJH-DPA AMETH 3.5 MG/ML-10,000 UNIT/ML-0.1% EYE DROPS Use 1 Drop in both eyes three times daily. Problem List As Of Date 03/30/2024 Noted Resolved Unilateral groin pain [R10.30] 07/31/2015 07/19/2016 Myofascial pain [M79.18] 09/04/2015 07/19/2016 Tobacco use [Z72.0] 07/30/2018 Encounter Status:Closed by HANNAH VILLARREAL on 03/30/24 [facility] No Panel Informationon 03-01 IMPRESSION: No radiographic evidence of acute osseous abnormality Costume Maker: ELMIRA Transcribe Date/Time: Mar 01 2024 12:11P Dictated by : GILBERTO MCKEON MD This examination was interpreted and the report reviewed and electronically signed by: GILBERTO MCKEON MD on Mar 01 2024 12:13PM EST DIVISION OF RADIOLOGY Radiology Study observation (narrative) [facility] No Panel InformationOrdered By: [facility] Provider on 03-01-2024 [facility] XR Ankle - right AP and Late ral and obliqueon 03-01-2024 * * *Final Report* * * DATE OF EXAM: Mar 01 2024 12:08PM [id number] - XR ANKLE 3V AP/LAT/OBL RT / PROCEDURE REASON: multiple diagnoses * * * * Physician Interpretation * * * * TITLE: XR ANKLE 3V AP/LAT/OBL RT, XR FOOT 3V AP/LAT/OBL RT CLINICAL INDICATION: Pain TECHNIQUE: 3 view radiographic study of the right ankle and right foot COMPARISON: Radiograph dated 12/19/2014 FINDINGS: No fracture or dislocation identified. Joint spaces preserved. DIVISION OF RADIOLOGY Provider, [facility] - 03/01/2024 * * *Final Report* * * DATE OF EXAM: Mar 01 2024 12:08PM [id number] - XR ANKLE 3V AP/LAT/OBL RT / PROCEDURE REASON: multiple diagnoses * * * * Physician Interpretation * * * * TITLE: XR ANKLE 3V AP/LAT/OBL RT, XR FOOT 3V AP/LAT/OBL RT CLINICAL INDICATION: Pain TECHNIQUE: 3 view radiographic study of the right ankle and right foot COMPARISON: Radiograph dated 12/19/2014 FINDINGS: No fracture or dislocation identified. Joint spaces preserved. IMPRESSION IMPRESSION: No radiographic evidence of acute osseous abnormality Costume Maker: [facility] Transcribe Date/Time: Mar 01 2024 12:11P Dictated by : GILBERTO MCKEON MD This examination was interpreted and the report reviewed and electronically signed by: GILBERTO MCKEON MD on Mar 01 2024 12:13PM EST [facility] XR Foot - right AP and Later al and obliqueon 03-01-2024 * * *Final Report* * * DATE OF EXAM: Mar 01 2024 12:08PM [id number] - XR FOOT 3V AP/LAT/OBL RT / PROCEDURE REASON: multiple diagnoses * * * * Physician Interpretation * * * * TITLE: XR ANKLE 3V AP/LAT/OBL RT, XR FOOT 3V AP/LAT/OBL RT CLINICAL INDICATION: Pain TECHNIQUE: 3 view radiographic study of the right ankle and right foot COMPARISON: Radiograph dated 12/19/2014 FINDINGS: No fracture or dislocation identified. Joint spaces preserved. DIVISION OF RADIOLOGY Provider, [facility] - 03/01/2024 * * *Final Report* * * DATE OF EXAM: Mar 01 2024 12:08PM [id number] - XR FOOT 3V AP/LAT/OBL RT / PROCEDURE REASON: multiple diagnoses * * * * Physician Interpretation * * * * TITLE: XR ANKLE 3V AP/LAT/OBL RT, XR FOOT 3V AP/LAT/OBL RT CLINICAL INDICATION: Pain TECHNIQUE: 3 view radiographic study of the right ankle and right foot COMPARISON: Radiograph dated 12/19/2014 FINDINGS: No fracture or dislocation identified. Joint spaces preserved. IMPRESSION IMPRESSION: No radiographic evidence of acute osseous abnormality Costume Maker: [facility] Transcribe Date/Time: Mar 01 2024 12:11P Dictated by : GILBERTO MCKEON MD This examination was interpreted and the report reviewed and electronically signed by: GILBERTO MCKEON MD on Mar 01 2024 12:13PM [facility] Orthopedic Visit Reporton Orthopedic Visit Report [facility] [address] [place] [address] OFFICE VISIT Date of Service: 01/10/23 MR#: [id number] Acct: [id number] Name: EDVIN TRAMMELL CLYDE Rep #: [id number] : 1980 Provider: Dr. Enoc andrade DO Age/Sex: 42/M [place] [facility] Status: Signed Intake Vital Signs 01/03/23 09:11 Height 5 ft 8 in Weight: 208 lb 4 oz BMI 31.6 Intake Visit Reasons: LUMBAR SPINE Chief Complaint: lumbar spine pain Is patient in pain?: Yes (lumbar spine pain) Pain scale (1-10): 1 Allergies No Known Allergies Allergy (Verified 01/10/23 08:59) Medications naproxen sodium 220 mg tablet (Aleve) 220 mg PO BID PRN 09/28/20 [History Confirmed 01/10/23] ibuprofen 400 mg tablet 400 mg PO Q8H 01/03/23 [History Confirmed 01/10/23] PFSH Medical History Encounter for sterilization GERD (gastroesophageal reflux disease) Surgical History History of adenoidectomy History of back surgery History of left inguinal hernia repair History of myringotomy History of tooth extraction History of vasectomy ( 10/2020) Family History Father No problems noted. Social History Smoking Status: Current some day smoker HPI LUMBAR SPINE Details: Parts of this documentation were recorded by a scribe, this documentation accurately reflects the service provided and the decisions made by me, Dr. Enoc Andrews, DO 01/10/23 0847. EDVIN TRAMMELL is a 42 year old M here today for 1 week follow up on lumbar spine pain. He took the last week off from working out and playing soccer and took the Medrol dose pack. He reports significant improvement in his symptoms. He does notice the pain the most when he shifts his weight from one hip to the other. 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 Fili is doing much much better than he was a week ago when I saw him. He states that 95% of his pain is gone at the bottom of those 2 rods. It was after the Medrol Dosepak. I am very pleased with his improvement. I think he can gradually get back into his athletics and working out now. In addition I told him to start doing some stretching exercises of we of which she sure is already well aware of without having to send him to the therapist. 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 He stated that he would do so and I told to come and see me and whenever he thinks he needs to. Coding Level of Care Code Off vis,est,level 2 Diagnoses Unspecified thoracic, thoracolumbar and lumbosacral intervertebral disc disorder M51.9 Time Spent (min) 12 Assessment and Plan Assessment and Plan (1) Unspecified thoracic, thoracolumbar and lumbosacral intervertebral disc disorder: Status: Acute 01/10/23 0933 Date Enoc Andrews DO Cosigner Signature: Date (if applicable) CC: Normal [facility] Lumbar Spine 2 or 3 Viewson 01-03-2023 Lumbar Spine 2 or 3 Views [facility] [address] [place] [address] Lumbar Spine 2 or 3 Views MR#: [id number] Acct: [id number] Name: EDVIN TRAMMELL CLYDE Rep #: [id number] : 1980 M 42 From: Jonny Holden MD PCP: Status: DEP AMB Study: Lumbar Spine 2 or 3 Views Date of Exam: Exam# [id number] Ordering Dr: Enoc Andrews DO STUDY: X-RAY - LUMBAR SPINE REASON FOR EXAM: Male, 42 years old. pain, previous surgery TECHNIQUE: AP and lateral view(s) of the lumbar spine were obtained. COMPARISON: None FINDINGS: Exaggerated lumbar lordosis of uncertain etiology possibly due to positioning artifact. There is no substantial scoliosis. There is a normal alignment of the vertebrae. No evidence for acute fracture or subluxation. Mild narrowing of L1-L2 3 disc spaces with mild endplate spurring . Postsurgical changes status post thoracolumbar scoliosis correction surgery. The soft tissue structures are unremarkable. RAD/Lumbar Spine 2 or 3 Views IMPRESSION: Mild spondylosis. No acute fracture or other significant bony pathology. Electronically Signed: Jonny Holden MD at 20:38 EDT Reading Location ID and State: [facility] / [place] , Service support , CC: Dr. Enoc Andrews DO Costume Maker: Signed Normal [facility] Orthopedic Visit Reporton Orthopedic Visit Report [facility] [address] [place] [address] [address] [place] [address] OFFICE VISIT Date of Service: 01/03/23 MR#: [id number] Acct: [id number] Name: EDVIN TRAMMELL Rep #: [id number] : 1980 Provider: Dr. Enoc andrade DO Age/Sex: 42/M [place] [facility] Status: Signed Intake Vital Signs 07/08/21 11:55 01/03/23 09:11 Height 5 ft 8 in 5 ft 8 in Weight: 208 lb 4 oz BMI 31.6 Intake Visit Reasons: Lumbar Is patient in pain?: Yes (6-7) Allergies No Known Allergies Allergy (Verified 01/03/23 09:11) Medications naproxen sodium 220 mg tablet (Aleve) 220 mg PO BID PRN 09/28/20 [History Confirmed 07/08/21] ibuprofen 400 mg tablet 400 mg PO Q8H 01/03/23 [History Confirmed 01/03/23] methylprednisolone 4 mg tablets in a dose pack (Medrol (Halima)) 4 mg PO DAILY 6 days #6 tabs 01/03/23 [Rx Confirmed 01/03/23] [facility] Medical History Encounter for sterilization GERD (gastroesophageal reflux disease) Surgical History History of adenoidectomy History of back surgery History of left inguinal hernia repair History of myringotomy History of tooth extraction History of vasectomy ( 10/2020) Family History Father No problems noted. Social History Smoking Status: Current some day smoker HPI Lumbar Details: Parts of this documentation were recorded by a scribe, this documentation accurately reflects the service provided and the decisions made by me, Dr. Enoc Andrews, DO 01/03/23 0900. EDVIN TRAMMELL is a 42 year old M here today NEW patient for lower back pain. He has previously had surgery where he has titanium rods and pins from his neck to his lower back. The surgeon that did his surgery is no longer alive. The back surgery was back in 1995. States that he has noticed that when he goes to take a step forward with his right leg and his leg won't go and it takes the wind out of him. He does play soccer 3 times a week for about 6hrs and on fathers day he had his bag sitting beside him and he went to reach for his cletes and he just felt a ping and had had pain since. He notes that today is the best it has felt within the last 2 weeks. Denies radiating pain. Denies numbness, tingling or other associated symptoms. He takes Naproxen and Ibuprofen for the pain. He hasn't had any injection in his back since right after his surgery. He has tried foam rolling to try and help with the pain. Notes that last night he finally was able to stretch his hamstrings which helped a lot. States that this pain normally happens once or twice a week but never lasts 2 weeks. States that he feels that something might be out of place. We will get x-rays today here in the office. Edvin is a most pleasant gentleman 42 years old who has a chief complaint of pain in the low back between the thoracic and lumbar areas on the right side. As mentioned above this started about 2 weeks ago where he felt a ping''. All he was doing was reaching for his cleats while sitting on the ground. It was not a lifting injury or anything abnormal. He is actually a little better now than he was at first. He went and tried to play in spite of it but after 5 minutes he had to give up as it was really bothering him. He denies any lower extremity symptomatology whatsoever. He is got no weakness no numbness tingling or pain down either lower extremity. 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 On examination he has excellent motor strength of all the major muscle groups of both lower extremities. He has physiologic reflexes bilaterally. He is well-developed with no atrophy. He can easily stand on his toes and stand on his heels. Forward bending does cause a little bit of increase in the pain on the right side. Plain x-rays of the lumbar spine demonstrate that he has the lower hooks at the L1 vertebra and then I took x-rays of the thoracic spine and they go all the way up to near the cervical spine. Both rods are broken at around T7-T8. I explained to Edvni that how long they have been that way is hard to tell but I do not think it happened 2 weeks ago. And again his pain is not in that area just below that. The pain is described the right side of the very lower end of the rods. We will try to calm the pain down by giving him a Medrol Dosepak. I would like to visit with him again in 1 week. I did ask him to stop the soccer and working out for now. I did explain to Edvin that I do not know the exact pain generator but it does not impress me as something is going to be a long-term problem. I will see him again in 1 week. He will start the Medrol Dosepak tomorrow. Coding Level (more content not included)... Normal [facility] Thoracic Spine 2 Viewson Thoracic Spine 2 Views [facility] Radiology [address] [place] [address] Thoracic Spine 2 Views MR#: [id number] Acct: [id number] Name: EDVIN TRAMMELL [facility] Rep #: [id number] : 1980 M 42 From: Ashok kruger MD PCP: Status: DEP AMB Study: Thoracic Spine 2 Views Date of Exam: 01/03/23 Exam# [id number] Ordering Dr: Enoc Andrews DO STUDY: X-RAY - THORACIC SPINE REASON FOR EXAM: Male, 42 years old. pain TECHNIQUE: 3 view(s) of the thoracic spine were obtained. COMPARISON: None. FINDINGS: Patient has bilateral Chaudhry rods from T1 down through L2. Both rods are discontinuous near the midportion at about the level of level of T8, possibly representing fractures of the rods. Another probable fracture of the right-sided wilberto is seen at the level of T11. There is no scoliosis currently. Mild increased thoracic kyphosis. No compression fractures. Degenerative changes throughout the discs. The soft tissue structures are unremarkable. RAD/Thoracic Spine 2 Views IMPRESSION: No definite acute abnormality. Degenerative changes. Suspicion of fractures of the Chaudhry rods as described, of indeterminate age. Electronically Signed: Ashok Sandoval MD at 22:52 EDT , CC: Dr. Enoc Andrews DO Costume Maker: Signed Normal [facility] Vital Signs Date Time Vital Sign Value Performing Clinician Faci lity 03-11-2025 15:38-0400 Body height 172.7 cm [employer] Work Phone: [facility] 03-11-2025 15:38-0400 Body mass index (BMI) [Ratio] 28.89 kg/m2 [employer] Work Phone: [facility] 03-11-2025 15:38-0400 Body temperature 98.29 [degF] [employer] Work Phone: [facility] 03-11-2025 15:38-0400 Body weight 86.18 kg [employer] Work Phone: [facility] 03-11-2025 15:38-0400 Diastolic blood pressure 70 mm[Hg] [employer] Work Phone: [facility] 03-11-2025 15:38-0400 Heart rate 74 /min [employer] Work Phone: [facility] 03-11-2025 15:38-0400 SaO2% (BldA) [Mass fraction] 99 % Lilburn Rohith DO Work Phone: [facility] 03-11-2025 15:38-0400 Systolic blood pressure 120 mm[Hg] Lilburn Rohith DO Work Phone: [facility] 10-19-2024 11:26-0400 Body mass index (BMI) [Ratio] 32.39 kg/m2 Sandie Trevino REGISTERED RADIOLOGIC TECHNOLOGIST.SIDE STITCHING MACHINE OPERATOR Work Phone: [facility] 10-19-2024 11:26-0400 Body temperature 98.8 [degF] Sandie Trevino REGISTERED RADIOLOGIC TECHNOLOGIST.SIDE STITCHING MACHINE OPERATOR Work Phone: [facility] 10-19-2024 11:26-0400 Body weight 96.7 kg Sandie Trevino REGISTERED RADIOLOGIC TECHNOLOGIST.SIDE STITCHING MACHINE OPERATOR Work Phone: [facility] 10-19-2024 11:26-0400 Diastolic blood pressure 84 mm[Hg] Sandie Trevino REGISTERED RADIOLOGIC TECHNOLOGIST.SIDE STITCHING MACHINE OPERATOR Work Phone: [facility] 10-19-2024 11:26-0400 Heart rate 75 /min Sandie Trevino REGISTERED RADIOLOGIC TECHNOLOGIST.SIDE STITCHING MACHINE OPERATOR Work Phone: [facility] 10-19-2024 11:26-0400 Respiratory rate 16 /min Sandie Trevino REGISTERED RADIOLOGIC TECHNOLOGIST.SIDE STITCHING MACHINE OPERATOR Work Phone: [facility] 10-19-2024 11:26-0400 SaO2% (BldA) [Mass fraction] 96 % Sandie Trevino REGISTERED RADIOLOGIC TECHNOLOGIST.SIDE STITCHING MACHINE OPERATOR Work Phone: [facility] 10-19-2024 11:26-0400 Systolic blood pressure 140 mm[Hg] Sandie Trevino REGISTERED RADIOLOGIC TECHNOLOGIST.SIDE STITCHING MACHINE OPERATOR Work Phone: [facility] 07-16-2024 12:54-0500 Body height 172.8 cm Cinthia Angellogaide REGISTERED RADIOLOGIC TECHNOLOGIST.SIDE STITCHING MACHINE OPERATOR Work Phone: [facility] 07-16-2024 12:54-0500 Body mass index (BMI) [Ratio] 31.11 kg/m2 Cinthia Podlogar REGISTERED RADIOLOGIC TECHNOLOGIST.SIDE STITCHING MACHINE OPERATOR Work Phone: [facility] 07-16-2024 12:54-0500 Body weight 92.9 kg Cinthia Podlogar REGISTERED RADIOLOGIC TECHNOLOGIST.SIDE STITCHING MACHINE OPERATOR Work Phone: [facility] 07-16-2024 12:54-0500 Diastolic blood pressure 74 mm[Hg] Cinthia Podlogar REGISTERED RADIOLOGIC TECHNOLOGIST.SIDE STITCHING MACHINE OPERATOR Work Phone: [facility] 07-16-2024 12:54-0500 Heart rate 77 /min Cinthia Podlogar REGISTERED RADIOLOGIC TECHNOLOGIST.SIDE STITCHING MACHINE OPERATOR Work Phone: [facility] 07-16-2024 12:54-0500 Respiratory rate 16 /min Cinthia Podlogar REGISTERED RADIOLOGIC TECHNOLOGIST.SIDE STITCHING MACHINE OPERATOR Work Phone: [facility] 07-16-2024 12:54-0500 SaO2% (BldA) [Mass fraction] 98 % Cinthia Podlogar REGISTERED RADIOLOGIC TECHNOLOGIST.SIDE STITCHING MACHINE OPERATOR Work Phone: [facility] 07-16-2024 12:54-0500 Systolic blood pressure 132 mm[Hg] Cinthia Podlogar REGISTERED RADIOLOGIC TECHNOLOGIST.SIDE STITCHING MACHINE OPERATOR Work Phone: [facility] 03-01-2024 11:24-0400 Body mass index (BMI) [Ratio] 31.61 kg/m2 Luis Munguia MD Work Phone: [facility] 03-01-2024 11:24-0400 Body temperature 97.39 [degF] Luis Munguia MD Work Phone: [facility] 03-01-2024 11:24-0400 Body weight 94.3 kg Luis Munguia MD Work Phone: [facility] 03-01-2024 11:24-0400 Diastolic blood pressure 70 mm[Hg] Luis Munguia MD Work Phone: [facility] 03-01-2024 11:24-0400 Heart rate 67 /min Luis Munguia MD Work Phone: [facility] 03-01-2024 11:24-0400 Respiratory rate 20 /min Luis Munguia MD Work Phone: [facility] 03-01-2024 11:24-0400 SaO2% (BldA) [Mass fraction] 98 % Luis Munguia MD Work Phone: [facility] 03-01-2024 11:24-0400 Systolic blood pressure 120 mm[Hg] Luis Munguia MD Work Phone: [facility] 10-27-2022 09:46-0400 Body temperature 97.9 [degF] Rekha Older REGISTERED RADIOLOGIC TECHNOLOGIST.SIDE STITCHING MACHINE OPERATOR Work Phone: [facility] 10-27-2022 09:46-0400 Body weight 94.35 kg Rekha Older REGISTERED RADIOLOGIC TECHNOLOGIST.SIDE STITCHING MACHINE OPERATOR Work Phone: [facility] 10-27-2022 09:46-0400 Diastolic blood pressure 72 mm[Hg] Rekha Older REGISTERED RADIOLOGIC TECHNOLOGIST.SIDE STITCHING MACHINE OPERATOR Work Phone: [facility] 10-27-2022 09:46-0400 Heart rate 63 /min Rekha Older REGISTERED RADIOLOGIC TECHNOLOGIST.SIDE STITCHING MACHINE OPERATOR Work Phone: [facility] 10-27-2022 09:46-0400 Respiratory rate 16 /min Rekha Older REGISTERED RADIOLOGIC TECHNOLOGIST.SIDE STITCHING MACHINE OPERATOR Work Phone: [facility] 10-27-2022 09:46-0400 SaO2% (BldA) [Mass fraction] 98 % Rekha Older REGISTERED RADIOLOGIC TECHNOLOGIST.SIDE STITCHING MACHINE OPERATOR Work Phone: [facility] 10-27-2022 09:46-0400 Systolic blood pressure 110 mm[Hg] Rekha Older REGISTERED RADIOLOGIC TECHNOLOGIST.SIDE STITCHING MACHINE OPERATOR Work Phone: [facility] Encounters Encounter Date Encounter Type Care Provider Facility Start: 03-21-2025 End: 03-21-2025 Follow-up encounter Melany Newberry DO Work Phone: [facility] Standard Start: 03-18-2025 End: 03-18-2025 ambulatory MELANY NEWBERRY Facility:[facility] Start: 03-11-2025 End: 03-11-2025 Patient encounter procedure Melany Newberry DO Work Phone: [facility] Standard Comment on above: Spermatocele (Primar y Dx); Anxiety and depression; Kyphosis, unspecified kyphosis type, unspecified spinal region; Encounter to establish care; History of vasectomy; History of hernia repair; Family history of malignant neoplasm of skin Start: 03-11-2025 End: 03-11-[address] [facility] Facility:[facility] Start: 10-19-2024 End: 10-19-2024 Subsequent hospital visit by physician Fidelina [facility] Work Phone: Radiology Comment on above: Acute cough [R05.1] Start: 10-19-2024 End: 10-19-2024 ambulatory [facility] Facility:[facility] Start: 10-19-2024 End: 10-19-2024 Patient encounter procedure Sandie Trevino REGISTERED RADIOLOGIC TECHNOLOGIST.SIDE STITCHING MACHINE OPERATOR Work Phone: [facility] Comment on above: Acute cough (Primary Dx); URI, acute; Acute otitis media, left Start: 07-16-2024 End: 07-16-2024 Patient encounter procedure Cinthia Lara APRN.SIDE STITCHING MACHINE OPERATOR Work Phone: [facility] Comment on above: Encounter for medica l examination to establish care (Primary Dx); Anxiety and depression; Marijuana abuse Start: 07-16-2024 End: 07-16-2024 Patient encounter status Cinthia Lara APRN.SIDE STITCHING MACHINE OPERATOR Work Phone: [facility] Start: 07-16-2024 End: 07-16-2024 ambulatory [facility] Facility:[facility] Start: 07-16-2024 Encounter for genera l adult medical examination without abnormal findings CINTHIA LARA [facility] Start: 05-27-2024 End: 05-27-2024 Subsequent hospital visit by physician Fidelina [facility] Mob Work Phone: Radiology Comment on above: Repetitive stress in jury [X50.3XXA] Start: 05-27-2024 End: 05-27-2024 ambulatory LUZ RODRÍGUEZ Facility:[facility] Start: 05-27-2024 End: 05-27-2024 Patient encounter procedure Luz Rodríguez Work Phone: Podiatry Comment on above: Capsulitis of foot, right (Primary Dx); Plantar plate injury, right, sequela Start: 05-24-2024 End: 05-24-2024 ambulatory Luz Rodríguez Work Phone: Podiatry Start: 05-24-2024 End: 05-24-2024 Patient encounter procedure Luz Rodríguez Work Phone: Podiatry Comment on above: Appointment Start: 05-20-2024 End: 05-21-2024 Telephone encounter Luz Rodríguez Work Phone: Podiatry Comment on above: Results Start: 05-18-2024 End: 05-21-2024 ambulatory Luz Rodríguez Work Phone: Podiatry Comment on above: Edvin mims ultrasound Start: 05-17-2024 End: 05-17-2024 ambulatory LUZ RODRÍGUEZ Facility:[facility] Start: 05-17-2024 End: 05-17-2024 Subsequent hospital visit by physician [facility] [address] Radiology Comment on above: Neuroma [D36.10] Start: 05-06-2024 End: 05-06-2024 ambulatory Luz Rodríguez Work Phone: Podiatry Comment on above: xrays Start: 05-06-2024 End: 05-06-2024 E-mail encounter from caregiver Luz Rodríguez Work Phone: Podiatry Start: 05-04-2024 End: 05-04-2024 Subsequent hospital visit by physician [facility] Lara Work Phone: Radiology Comment on above: Right foot pain [M79 .671] Start: 05-04-2024 End: 05-05-2024 ambulatory Luz Rodríguez Work Phone: Podiatry Comment on above: Insurance Start: 05-04-2024 End: 05-04-2024 Patient encounter procedure Luz Rodríguez Work Phone: Podiatry Comment on above: Neuroma (Primary Dx) ; Capsulitis of foot, right; Right foot pain; Repetitive stress injury Start: 04-30-2024 End: 05-05-2024 ambulatory Luz Rodríguez Work Phone: Podiatry Comment on above: Injection next week Start: 04-20-2024 End: 04-20-2024 ambulatory YARIEL CARTER Facility:[facility] Start: 04-20-2024 End: 04-20-2024 Office outpatient visit 25 minutes Yariel Carter REGISTERED RADIOLOGIC TECHNOLOGIST.SIDE STITCHING MACHINE OPERATOR Work Phone: Family Medicine Comment on above: Encounter to [facility] (Primary Dx); Toe pain, chronic, right; Screening for HIV (human immunodeficiency virus); Special screening examination for viral disease; Screening for colon cancer; Screening for depression; Encounter for screening examination for other mental health and behavioral disorders; Chronic bilateral low back pain without sciatica; Postural kyphosis of thoracic region Start: 04-02-2024 End: 04-07-2024 ambulatory Luz Rodríguez Work Phone: Podiatry Comment on above: Prednisone Start: 03-30-2024 End: 03-30-2024 Telephone encounter Misa Tai Radiology Comment on above: Appointment Start: 03-30-2024 End: 03-30-2024 ambulatory LUZ RODRÍGUEZ Facility:[facility] Start: 03-30-2024 End: 03-30-2024 Patient encounter procedure Luz Rodríguez Work Phone: Podiatry Comment on above: Neuroma (Primary Dx) ; Capsulitis of foot, right Start: 03-01-2024 End: 03-01-2024 Subsequent hospital visit by physician Fidelina [facility] Work Phone: Radiology Comment on above: Acute right ankle pa in [M25.571] Start: 03-01-2024 End: 03-01-2024 Office outpatient visit 15 minutes Luis Munguia MD Work Phone: [facility] Comment on above: Acute right ankle pa in (Primary Dx); Chronic foot pain, right Start: 01-10-2023 End: 01-10-2023 ambulatory Enoc Andrews Facility:[facility] Start: 01-03-2023 End: 01-03-2023 ambulatory Enoc Andrews Facility:[facility] Start: 11-07-2022 End: 11-07-2022 Patient encounter procedure Marsha Prince OD Work Phone: Ophthalmology Comment on above: 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) Start: 10-27-2022 End: 10-27-2022 Patient encounter procedure Rekhajaquelin Campos REGISTERED RADIOLOGIC TECHNOLOGIST.SIDE STITCHING MACHINE OPERATOR Work Phone: [facility] Comment on above: Blepharitis of upper eyelids of both eyes, unspecified type (Primary Dx) Procedures Date Procedure Procedure Detail Performing Clinician Start: 03-18-2025 Lipid 1996 panel - Serum or Plasma Melany Newberry DO Work Phone: Start: 03-13-2025 H/O: vasectomy History of vasectomy Lilburn Rohith DO Work Phone: Start: 10-19-2024 Radiologic exam ches t 2 views Sandie Trevino REGISTERED RADIOLOGIC TECHNOLOGIST.SIDE STITCHING MACHINE OPERATOR Work Phone: Start: 05-17-2024 Us lmtd joint/oth nonvasc xtr strux r-t w/img Luz Anne Work Phone: Start: 05-04-2024 Radex foot complete minimum 3 views Luz Rodríguez Work Phone: Start: 04-20-2024 Adult depression screening assessment Yariel Catrer REGISTERED RADIOLOGIC TECHNOLOGIST.SIDE STITCHING MACHINE OPERATOR Work Phone: Start: 03-01-2024 Radex ankle complete minimum 3 views Luis Munguia MD Work Phone: H/O: vasectomy History of vasectomy Collin Newberry DO Work Phone: Plan of Treatment Date Care Activity Detail Author Start: 03-18-2030 Lipid panel Lipid Screening [facility] Start: 04-27-2029 Urine microalbumin profile [facility] Start: 03-18-2028 Diabetes Screening Diabetes Screenin g [facility] Start: 09-09-2025 End: 09-09-2025 Patient encounter procedure 09/09/2025 2:30 PM EST Office Visit [facility] [address] [place] [address] Melany Newberry DO [address] [place] [address] f/u 6 months [facility] Comment on above: f/u 6 months Start: 07-18-2025 End: 07-18-2025 Patient encounter procedure 07/18/2025 1:20 PM EST Office Visit [facility] [address] [place], [place] [id number] Nima Villalta MD [address] [place] [address] Physical [facility] Comment on above: Physical Start: 07-16-2025 Covid-19 Vaccine () Covid-19 Vaccine () [facility] Comment on above: Postponed from 03/07 (Declined at this time) Start: 04-20-2025 Anxiety Screening Anxiety Screening [facility] Start: 04-20-2025 Depression Screening Depression Scre ening [facility] Start: 03-11-2025 End: 06-10-2025 CBC W Auto Differential panel - Blood COMPLETE BLOOD COUNT AND DIFFERENTIAL Lab Routine Spermatocele Anxiety and depression Encounter to establish care Expected: 03/11/2025, Expires: 06/10/2025 [facility] Comment on above: Expected: 03/11/2025 , Expires: 06/10/2025 Start: 03-11-2025 End: 06-10-2025 Comprehensive metabolic 2000 panel - Serum or Plasma COMPREHENSIVE METABOLIC PANEL Lab Routine Spermatocele Anxiety and depression Encounter to establish care Expected: 03/11/2025, Expires: 06/10/2025 [facility] Comment on above: Expected: 03/11/2025 , Expires: 06/10/2025 Start: 03-11-2025 End: 06-10-2025 Lipid 1996 panel - Serum or Plasma LIPID PANEL, FASTING Lab Routine Spermatocele Anxiety and depression Encounter to establish care Expected: 03/11/2025, Expires: 06/10/2025 [facility] Comment on above: Expected: 03/11/2025 , Expires: 06/10/2025 Start: 03-11-2025 End: 06-10-2025 Thyrotropin [Units/volume] in Serum or Plasma THYROID STIMULATING HORMONE Lab Routine Spermatocele Anxiety and depression Encounter to establish care Expected: 03/11/2025, Expires: 06/10/2025 [facility] Comment on above: Expected: 03/11/2025 , Expires: 06/10/2025 Start: 03-11-2025 End: 06-10-2025 Urinalysis complete panel - Urine URINALYSIS, WITH MICROSCOPIC Lab Routine Spermatocele Anxiety and depression Encounter to establish care Expected: 03/11/2025, Expires: 06/10/2025 [facility] Comment on above: Expected: 03/11/2025 , Expires: 06/10/2025 Start: 03-07-2025 Influenza vaccination Influenza Vacc ine (#1) [facility] Start: 01-03-2025 Influenza vaccination Influenza Vacc ine (#1) [facility] Comment on above: Postponed from 03/07 (Declined at this time) Start: 07-16-2024 End: 10-15-2024 CBC W Auto Differential panel - Blood COMPLETE BLOOD COUNT AND DIFFERENTIAL Lab Routine Encounter for medical examination to establish care Expected: 07/16/2024, Expires: 10/15/2024 [facility] Comment on above: Expected: 07/16/2024 , Expires: 10/15/2024 Start: 07-16-2024 End: 10-15-2024 Comprehensive metabolic 2000 panel - Serum or Plasma COMPREHENSIVE METABOLIC PANEL Lab Routine Encounter for medical examination to establish care Expected: 07/16/2024, Expires: 10/15/2024 [facility] Comment on above: Expected: 07/16/2024 , Expires: 10/15/2024 Start: 07-16-2024 End: 10-15-2024 Lipid 1996 panel - Serum or Plasma LIPID PANEL BASIC Lab Routine Encounter for medical examination to establish care Expected: 07/16/2024, Expires: 10/15/2024 [facility] Work Phone: Comment on above: Expected: 07/16/2024 , Expires: 10/15/2024 Start: 07-16-2024 End: 07-16-2024 Patient encounter procedure 07/16/2024 12:40 PM EST Office Visit Family Medicine [facility] [address] [place], [place] [id number] PodlogarCinthia APRN.SIDE STITCHING MACHINE OPERATOR [address] [place] [address] Establish Care [facility] Comment on above: Establish Care Start: 05-27-2024 End: 05-27-2024 Patient encounter procedure 05/27/2024 3:15 PM EST Office Visit Podiatry [address] [place] [address] Luz Rodríguez [address] [address] follow up Podiatry Comment on above: follow up Start: 05-17-2024 End: 05-17-2024 Patient encounter procedure 05/17/2024 12:45 PM EST Appointment Radiology [address] [place] [address] US FOOT RT; GUTIERREZ'S NEUROMA-EVAL RT 2ND+3RD IMS/MTPJ'S FOR NEUROMA VS. PLANTAR PLATE INJURY Radiology Comment on above: US FOOT RT; GUTIERREZ'S NEUROMA-EVAL RT 2ND+3RD IMS/MTPJ'S FOR NEUROMA VS. PLANTAR PLATE INJURY Start: 05-07-2024 End: 05-07-2024 Patient encounter procedure 05/07/2024 1:30 PM EDT Appointment Ambulatory Surgery [address] [place] [address] Naida Avila MD [address] [place] [id number] Ambulatory Surgery Start: 05-04-2024 End: 05-04-2024 Patient encounter procedure 05/04/2024 11:15 AM EDT Office Visit Podiatry [address] [place] [address] Luz Rodríguez [address] [place] [address] right foot Podiatry Comment on above: right foot Start: 04-20-2024 End: 07-20-2024 CBC panel - Blood by Automated count COMPLETE BLOOD COUNT Lab Routine Encounter to establish care Expected: 04/20/2024, Expires: 07/20/2024 [facility] Work Phone: Comment on above: Expected: 04/20/2024 , Expires: 07/20/2024 Start: 04-20-2024 End: 07-20-2024 Comprehensive metabolic 2000 panel - Serum or Plasma COMPREHENSIVE METABOLIC PANEL Lab Routine Encounter to establish care Expected: 04/20/2024, Expires: 07/20/2024 [facility] Comment on above: Expected: 04/20/2024 , Expires: 07/20/2024 Start: 04-20-2024 End: 07-20-2024 Hemoglobin A1c in Blood HEMOGLOBIN A1C Lab Routine Encounter to establish care Expected: 04/20/2024, Expires: 07/20/2024 [facility] Comment on above: Expected: 04/20/2024 , Expires: 07/20/2024 Start: 04-20-2024 End: 07-20-2024 Hepatitis C virus Ab [Presence] in Serum HEPATITIS C ANTIBODY IA WITH CONFIRMATION Lab Routine Special screening examination for viral disease Expected: 04/20/2024, Expires: 07/20/2024 [facility] Comment on above: Expected: 04/20/2024 , Expires: 07/20/2024 Start: 04-20-2024 End: 07-20-2024 HIV 1+2 Ab [Presence] in Serum or Plasma by Immunoassay HIV 1/2 COMBO WITH REFLEX TO DIFFERENTIATION Lab Routine Screening for HIV (human immunodeficiency virus) Expected: 04/20/2024, Expires: 07/20/2024 [facility] Comment on above: Expected: 04/20/2024 , Expires: 07/20/2024 Start: 04-20-2024 End: 07-20-2024 Lipid 1996 panel - Serum or Plasma LIPID PANEL BASIC Lab Routine Encounter to establish care Expected: 04/20/2024, Expires: 07/20/2024 [facility] Comment on above: Expected: 04/20/2024 , Expires: 07/20/2024 Start: 04-20-2024 End: 04-20-2024 Examination of testicle 04/20/2024 10:40 AM EDT Distance [facility] [address] [place] [address] Yariel Carter, REGISTERED RADIOLOGIC TECHNOLOGIST.SIDE STITCHING MACHINE OPERATOR [address] [place] [address] Toe pain, testicular pain, general health Family Medicine Comment on above: Toe pain, testicular pain, general health Start: 03-07-2024 Covid-19 Vaccine ( season) Covid-19 Vaccine ( season) [facility] Start: 03-07-2024 Covid-19 Vaccine ( season) Covid-19 Vaccine ( season) [facility] Start: 03-07-2024 Influenza vaccination Influenza Vacc ine (#1) [facility] Start: 01-20-2024 Diabetes Screening Diabetes Screenin g [facility] Start: 01-20-2024 Screening for malign ant neoplasm of colon [facility] Start: 03-07-2023 Covid-19 Vaccine ( season) Covid-19 Vaccine ( season) [facility] Start: 03-07-2023 Influenza vaccination INFLUENZA (Sea son Ended) [facility] Start: 07-07-2022 DEPRESSION ASSESSMENT DEPRESSION ASS ESSMENT [facility] Start: 2014 Lipid panel Lipid Screening [facility] Start: 2014 LIPID SCREEN LIPID SCREEN [facility] Start: 1998 Hepatitis B Vaccine (1 of 3 - 19+ 3-dose series) Hepatitis B Vaccine (1 of 3 - 19+ 3-dose series) [facility] Start: 1998 Pneumococcal vaccination Pneumococcal Vaccine (1 of 2 - PCV) [facility] Start: 1997 Anxiety Screening Anxiety Screening [facility] Start: 1997 Depression Screening Depression Scre ening [facility] Start: 1997 HEPATITIS C SCREENING HEPATITIS C [facility] Start: 1997 Hepatitis C screening Hepatitis C [facility] Start: 1997 HIV SCREENING HIV SCREENING [facility] Start: 1997 HIV screening HIV Screening [facility] Start: 1985 PNEUMOCOCCAL (1 - PCV) PNEUMOCOCCAL (1 - PCV) [facility] Start: 1985 Pneumococcal vaccination Pneumococcal Vaccine (1 of 2 - PCV) [facility] Start: 1980 COVID-19 VACCINE (#1) COVID-19 VACCI NE (#1) [facility] Start: 1980 HEPATITIS B (1 of 3 - 3-dose series) HEPATITIS B (1 of 3 - 3-dose series) [facility] End: 04-20-2025 Screening colonoscopy COLONOSCOPY SCREENING Endoscopy Routine Screening for colon cancer 1 Occurrences starting 04/20/2024 until 04/20/2025 [facility] Comment on above: 1 Occurrences starti ng 04/20/2024 until 04/20/2025 End: 04-29-2025 US Lower extremity - right US FOOT RIGHT Radiology Routine Neuroma Capsulitis of foot, right 1 Occurrences starting 03/30/2024 until 04/29/2025 [facility] Work Phone: Comment on above: 1 Occurrences starti ng 03/30/2024 until 04/29/2025 End: 04-10-2026 US.doppler Scrotum and testicle US SCROTUM AND CONTENTS Radiology Routine Spermatocele Anxiety and depression Encounter to establish care 1 Occurrences starting 03/11/2025 until 04/10/2026 [facility] Work Phone: Comment on above: 1 Occurrences starti ng 03/11/2025 until 04/10/2026 End: 06-19-2025 XR Foot - right AP and Lateral and oblique XR FOOT GENERAL 3V AP/LAT/OBL RIGHT Radiology Routine Repetitive stress injury 1 Occurrences starting 05/20/2024 until 06/19/2025 [facility] Work Phone: Comment on above: 1 Occurrences starti ng 05/20/2024 until 06/19/2025 XR Foot - right AP a nd Lateral and oblique XR FOOT GENERAL 3V AP/LAT/OBL RIGHT Radiology Routine Repetitive stress injury 05/27/2024 3:42 PM EST [facility] Work Phone: [facility] Immunizations Immunization Date Immunization Notes Care Provider Fa solitarionancie 04-27-2019 tetanus toxoid, redu james diphtheria toxoid, and acellular pertussis vaccine, adsorbed Rekha Older REGISTERED RADIOLOGIC TECHNOLOGIST.SIDE STITCHING MACHINE OPERATOR Work Phone: [facility] Work Phone: 07-30-2018 influenza virus vaccine, unspecified formulation Luis Munguia MD Work Phone: [facility] Payers Date Payer Category Payer Self-pay 2022 Unknown [id number] 2022 Medicaid [id number] 2018 Medicaid [id number] Unknown [id number] Unknown [id number] Unknown [id number] Social History Date Type Detail Facility Start: 07-31-2015 Tobacco smoking stat us CAIS Light tobacco smoker [facility] Start: 07-31-2015 End: 03-30-2024 Tobacco use and exposure Smokeless tobacco non-user [facility] Start: 04-27-2019 End: 05-27-2024 Alcohol intake Current non-drinker of alcohol (finding) [facility] Start: 1980 Sex Assigned At Not on file [facility] Start: 03-01-2024 End: 03-30-2024 History of Social function [facility] Start: 03-01-2024 End: 03-30-2024 Tobacco use panel [facility] Start: 06-07-2012 National Score (1-10 0), lower number is lower risk Not on file [facility] Start: 03-30-2024 End: 03-11-2025 Tobacco smoking status NHIS Ex-smoker [facility] Work Phone: End: 09-05-2023 History of tobacco use Current smoker [facility] End: 09-05-2023 History of tobacco use Cigarette Smoker [facility] Start: 07-16-2024 Tobacco smoking stat us CAIS Occasional tobacco smoker [facility] Start: 07-16-2024 End: 03-11-2025 Tobacco use and exposure User of smokeless tobacco [facility] History of tobacco use Chews Tobacco [facility] Start: 07-16-2024 End: 03-11-2025 Alcoholic beverage intake Current drinker of alcohol (finding) [facility] Has the [employer], [employer], or [employer] threatened to shut off services in your home in past 12Mo [facility] Do you belong to any clubs or organizations such as sabianist groups, unions, fraternal or athletic groups, or school groups? Yes [facility] Are you now , , , , never or living with a partner? [facility] How often to you hav e a drink containing alcohol? 2-4 times a month [facility] How many standard dr inks containing alcohol do you have on a typical day? 3 or 4 [facility] How often do you hav e 6 or more drinks on 1 occasion? Less than monthly [facility] How hard is it for y ou to pay for the very basics like food, housing, medical care, and heating Hard [facility] Do you feel stress - tense, restless, nervous, or anxious, or unable to sleep at night because your mind is troubled all the time - these days [OSQ] Rather much [facility] (I/We) worried jamey er (my/our) food would run out before (I/we) got money to buy more. Sometimes true [facility] Start: 07-16-2024 Alcohol Comment once a week 3-5 beer s [facility] Start: 03-11-2025 Tobacco Comment Dottie Fagan [facility] Functional Status Date Assessment Result Facility 12-19-2014 Are you deaf, or do you have serious difficulty hearing No 12/19/2014 12:54 PM EDT Mirian Solo LPN No [facility] 12-19-2014 Are you blind, or do you have serious difficulty seeing, even when wearing glasses No 12/19/2014 12:54 PM EDT Mirian Solo LPN No [facility] 12-19-2014 Do you have serious difficulty walking or climbing stairs Yes 12/19/2014 12:54 PM EDT Mirian Solo LPN Yes [facility] 12-19-2014 Do you have difficul ty dressing or bathing No 12/19/2014 12:54 PM EDT Mirian Solo LPN No [facility] 12-19-2014 Because of a physica l, mental, or emotional condition, do you have difficulty doing errands alone such as visiting a physician's office or shopping No 12/19/2014 12:54 PM EDT Mirian Solo LPN No [facility] Mental Status Date Assessment Result Facility 12-19-2014 Because of a physica l, mental, or emotional condition, do you have serious difficulty concentrating, remembering, or making decisions No 12/19/2014 12:54 PM EDT Mirian Solo LPN No [facility] Clinical Notes 09-04-2015 to 03-21-2025 Telephone Encounter - Sheryl Martinez LPN - 03/21/2025 9:28 AM EDTTelephone Encounter - Sheryl Martinez LPN - 03/21/2025 9:28 AM Melany Reyes DO - 03/11/2025 4:01 PM EDT Note Date & Type Note Facility 03-21-2025 Telephone encounter Note ----- Message from Melany Newberry DO sent at 03/21/2025 9:25 AM EDT ----- Lipids up' low saturated fat diet ----- Message ----- From: Lab, Background User Sent: 03/18/2025 7:40 PM EDT To: Melany Newberry DO [facility] 03-21-2025 Miscellaneous Notes ----- Message from Melany Newberry DO sent at 03/21/2025 9:25 AM EDT ----- Lipids up' low saturated fat diet ----- Message ----- From: Lab, Background User Sent: 03/18/2025 7:40 PM EDT To: Mleany Newberry DO documented in this encounter [facility] 03-11-2025 Note HNO ID: [id number] Author: MELANY NEWBERRY DO Service: ? Author Type: Physician Type: Progress Notes Filed: 03/13/2025 19:07 Note Text: Subjective The patient is a 45-year-old male presenting for evaluation of a six-month history of a testicular lump. Testicular Lump: - Edvin Trammell noticed a lump on the testicle approximately 6 months ago. - Appeared after a vasectomy. - Edvin reports a history of a hernia repair, with subsequent scrotal discomfort. Skin Lesions: - Multiple skin lesions, some of which are new. - Lesions are not raised but start off itchy. - Family history of melanoma in mother. Kyphosis: - Edvin underwent back surgery with wilberto placement for kyphosis. - Reports that the rods are now broken. Foot Injury: - Torn ligament in the foot from soccer. - Has been over a year since Edvin was last seen by a doctor for this issue. Lifestyle: - Works in construction. - Exercises regularly, including push-ups. - Does not smoke; consumes marijuana nightly before bed. - Drinks alcohol occasionally. - Recently stopped drinking soda and completed a 96-hour water fast. - Eats gluten-free bread. Family History: - Mother has melanoma and degenerative disc disease. - Full-blooded brother had a severe hiatal hernia. Additional Concerns: - Edvin reports occasional lightheadedness after exercise. - Occasional chest pain, attributed to physical activity. - Nocturia resolved after fasting. - No issues with erectile dysfunction; reports improvement after fasting. - Experiences stress related to family and work. Review of Systems Ears/Nose/Mouth/Throat: (-) dysphagia Cardiovascular: (+) chest pain Respiratory: (-) shortness of breath Gastrointestinal: (-) nausea, (-) vomiting, (-) diarrhea, (-) constipation, (-) hematochezia, (-) heartburn Genitourinary: (+) testicular lump, (-) nocturia, (-) erectile dysfunction Skin: (+) pruritus, (+) skin lesions Neurological: (+) lightheadedness PAST MEDICAL HISTORY Diagnosis Date Back pain Kyphosis PAST SURGICAL HISTORY Procedure Laterality Date ORAL SURGERY PROCEDURE wisdom teeth PAST SURGICAL HISTORY OF Left 07/07/2007 LT thumb partial amputaition PAST SURGICAL HISTORY OF 07/07/1995 Kyphosis repair PAST SURGICAL HISTORY OF tubes in ears PAST SURGICAL HISTORY OF adenoids removed RPR 1ST INGUN HRNA AGE 4 YRS/> REDUCIBLE 12/05/2012 Hernia repair, inguinal, left FAMILY HISTORY Problem Relation Age of Onset other (spine issue) Mother Systemic Lupus Erythematosus Father other (hiatal hernia) Brother other (ETOH) Maternal Grandmother Leukemia Maternal Grandmother other (ETOH) Maternal Grandfather No Known Problems Paternal Grandmother No Known Problems Paternal Grandfather No Ocular Disease No Family History SOCIAL HISTORY[1] Current Outpatient Medications Medication Sig AIDENA ROOT EXTRACT PO Take by mouth. MEDICATION, NON-DATABASE [id number] creatine monohydrate (CREATINE ORAL) Take by mouth. SHILAJIT PO Take by mouth. No current facility-administered medications for this visit. Objective BP 120/70 (BP Site: Left Arm, BP Position: Sitting) Pulse 74 Temp 36.8 ?C (98.3 ?F) Ht 5' 8 (1.727 m) Wt 190 lb (86.2 kg) SpO2 99% BMI 28.89 kg/m? Physical Exam GENERAL: NAD, alert and oriented. SKIN: Multiple lesions noted, some pruritic. HEAD: Normocephalic. EYES: PERRLA, EOMI, conjunctiva clear. EARS: External ears normal, canals clear, TM's normal. NOSE/SINUSES: Nares normal. Septum midline. OROPHARYNX: Lips, mucosa, and tongue normal, good dentition. No oral lesions noted. NECK: Supple, no lymphadenopathy, normal thyroid, no carotid bruits. LUNGS: Clear to auscultation bilaterally, no wheezes/rhonchi/rales. HEART: Regular rate and rhythm, no murmurs. No ectopy. EXTREMITIES: Normal, no deformities, no skin discoloration, no edema. NEURO: Awake, alert and oriented x3, cranial nerves II-XII grossly intact, normal gait, no involuntary motions. GENITOURINARY: Palpable mass on testicle consistent with hydrocele or spermatocele. Labs: Tests: Imaging: - X-ray: Chaudhry rods are broken. Assessment AND Plan 1. Spermatocele (N43.40) - Exam findings consistent with spermatocele; no evidence of malignancy. - Discussed benign nature of spermatocele and provided reassurance. - Will perform scrotal ultrasound to confirm diagnosis. 2. Anxiety and depression (F41.9) - Patient reports significant life stressors related to family and work. 3. Encounter to establish care (Z76.89) - Ordered baseline labs: CBC, CMP, TSH, and lipid panel. 4. History of vasectomy (Z98.52) 5. History of hernia repair (Z98.890) - Noted history of vasectomy and prior laparoscopic hernia repair. 6. Family history of malignant neoplasm of skin (Z80.8) - Mother with history of melanoma. - Performed skin exam; no concerning lesions identified. 7. Kyphosis, unspecified kyph (more content not included)... [facility] 03-11-2025 History of Presen t illness Narrative Images from the original note were not included. Subjective The patient is a 45-year-old male presenting for evaluation of a six-month history of a testicular lump. Testicular Lump: - Edvin Trammell noticed a lump on the testicle approximately 6 months ago. - Appeared after a vasectomy. - Edvin reports a history of a hernia repair, with subsequent scrotal discomfort. Skin Lesions: - Multiple skin lesions, some of which are new. - Lesions are not raised but start off itchy. - Family history of melanoma in mother. Kyphosis: - Edvin underwent back surgery with wilberto placement for kyphosis. - Reports that the rods are now broken. Foot Injury: - Torn ligament in the foot from soccer. - Has been over a year since Edvin was last seen by a doctor for this issue. Lifestyle: - Works in construction. - Exercises regularly, including push-ups. - Does not smoke; consumes marijuana nightly before bed. - Drinks alcohol occasionally. - Recently stopped drinking soda and completed a 96-hour water fast. - Eats gluten-free bread. Family History: - Mother has melanoma and degenerative disc disease. - Full-blooded brother had a severe hiatal hernia. Additional Concerns: - Edvin reports occasional lightheadedness after exercise. - Occasional chest pain, attributed to physical activity. - Nocturia resolved after fasting. - No issues with erectile dysfunction; reports improvement after fasting. - Experiences stress related to family and work. Review of Systems Ears/Nose/Mouth/Throat: (-) dysphagia Cardiovascular: (+) chest pain Respiratory: (-) shortness of breath Gastrointestinal: (-) nausea, (-) vomiting, (-) diarrhea, (-) constipation, (-) hematochezia, (-) heartburn Genitourinary: (+) testicular lump, (-) nocturia, (-) erectile dysfunction Skin: (+) pruritus, (+) skin lesions Neurological: (+) lightheadedness PAST MEDICAL HISTORY Diagnosis Date Back pain Kyphosis PAST SURGICAL HISTORY Procedure Laterality Date ORAL SURGERY PROCEDURE wisdom teeth PAST SURGICAL HISTORY OF Left 07/07/2007 LT thumb partial amputaition PAST SURGICAL HISTORY OF 07/07/1995 Kyphosis repair PAST SURGICAL HISTORY OF tubes in ears PAST SURGICAL HISTORY OF adenoids removed RPR 1ST INGUN HRNA AGE 5 YRS/> REDUCIBLE 12/05/2012 Hernia repair, inguinal, left FAMILY HISTORY Problem Relation Age of Onset other (spine issue) Mother Systemic Lupus Erythematosus Father other (hiatal hernia) Brother other (ETOH) Maternal Grandmother Leukemia Maternal Grandmother other (ETOH) Maternal Grandfather No Known Problems Paternal Grandmother No Known Problems Paternal Grandfather No Ocular Disease No Family History SOCIAL HISTORY[1] Current Outpatient Medications Medication Sig RADHA ROOT EXTRACT PO Take by mouth. MEDICATION, NON-DATABASE [id number] creatine monohydrate (CREATINE ORAL) Take by mouth. SHILAJIT PO Take by mouth. No current facility-administered medications for this visit. Objective BP 120/70 (BP Site: Left Arm, BP Position: Sitting) Pulse 74 Temp 36.8 C (98.3 F) Ht 5' 8 (1.727 m) Wt 190 lb (86.2 kg) SpO2 99% BMI 28.89 kg/m Physical Exam GENERAL: NAD, alert and oriented. SKIN: Multiple lesions noted, some pruritic. HEAD: Normocephalic. EYES: PERRLA, EOMI, conjunctiva clear. EARS: External ears normal, canals clear, TM's normal. NOSE/SINUSES: Nares normal. Septum midline. OROPHARYNX: Lips, mucosa, and tongue normal, good dentition. No oral lesions noted. NECK: Supple, no lymphadenopathy, normal thyroid, no carotid bruits. LUNGS: Clear to auscultation bilaterally, no wheezes/rhonchi/rales. HEART: Regular rate and rhythm, no murmurs. No ectopy. EXTREMITIES: Normal, no deformities, no skin discoloration, no edema. NEURO: Awake, alert and oriented x3, cranial nerves II-XII grossly intact, normal gait, no involuntary motions. GENITOURINARY: Palpable mass on testicle consistent with hydrocele or spermatocele. Labs: Tests: Imaging: - X-ray: Chaudhry rods are broken. Assessment & Plan 1. Spermatocele (N43.40) - Exam findings consistent with spermatocele; no evidence of malignancy. - Discussed benign nature of spermatocele and provided reassurance. - Will perform scrotal ultrasound to confirm diagnosis. 2. Anxiety and depression (F41.9) - Patient reports significant life stressors related to family and work. 3. Encounter to establish care (Z76.89) - Ordered baseline labs: CBC, CMP, TSH, and lipid panel. 4. History of vasectomy (Z98.52) 5. History of hernia repair (Z98.890) - Noted history of vasectomy and prior laparoscopic hernia repair. 6. Family history of malignant neoplasm of skin (Z80.8) - Mother with history of melanoma. - Performed skin exam; no concerning lesions identified. 7. Kyphosis, unspecified kyphosis type, unspecified spinal region (M40.209) - History of kyphosis with spinal rods in place; rods noted to be broken on prior imaging. Melany Newberry DO Return in about 6 months (around 09/08/2025). Recording using [employer] software for draft documentation of the visit was discussed with the patient/authorized premium representative; all questions welcomed and answered. Patient/authorized premium representative agreed to proceed [1] Social History Tobacco Use Smoking status: Former Current packs/day: 0.00 Types: Cigarettes Quit date: 09/2023 Years since quittin.5 Smokeless tobacco: Current Tobacco comments: Dottie Vaping Use Vaping status: Never Used Substance Use Topics Alcohol use: Yes Comment: once a week 3-5 beers Drug use: Yes Types: Marijuana documented in this encounter [facility] 10-19-2024 History of Presen t illness Narrative Radiology Service Progress Note PATIENT NAME: Edvin Trammell DATE OF SERVICE: October 19, 2024 TIME: 11:35 AM PATIENT IDENTITY VERIFICATION COMPLETED USING TWO (2) IDENTIFIERS: Name and Date of confirmed by patient verbally. FALL SCREENING: Has the patient had 2 falls in the last year or 1 fall with injury or currently using an Ambulatory Assistive Device (Walker, Cane, Wheelchair, Crutches, etc.)? No PATIENT GENDER DATA: Assigned male at PATIENT RELEVANT IMPLANT DATA REVIEWED: Not Applicable PATIENT PRESENTS WITH AN IMPLANTABLE OR ATTACHED FIRST AID INSTRUCTOR: No RADIOLOGY DEPARTMENT: General X-ray: Exam(s) Completed: Chest X-Ray PERIPHERAL IV DATA: Not applicable SIGNED BY: RT Judie(Fay) October 19, 2024 11:35 AM documented in this encounter [facility] 10-19-2024 Note HNO ID: [id number] Author: CHARLETTE OCHOA RT(Fay) Service: Radiology Author Type: Technologist Type: Progress Notes Filed: 10/19/2024 11:40 Note Text: Radiology Service Progress Note PATIENT NAME: Edvin Trammell DATE OF SERVICE: October 19, 2024 TIME: 11:35 AM PATIENT IDENTITY VERIFICATION COMPLETED USING TWO (2) IDENTIFIERS: Name and Date of confirmed by patient verbally. FALL SCREENING: Has the patient had 2 falls in the last year or 1 fall with injury or currently using an Ambulatory Assistive Device (Walker, Cane, Wheelchair, Crutches, etc.)? No PATIENT GENDER DATA: Assigned male at PATIENT RELEVANT IMPLANT DATA REVIEWED: Not Applicable PATIENT PRESENTS WITH AN IMPLANTABLE OR ATTACHED FIRST AID INSTRUCTOR: No RADIOLOGY DEPARTMENT: General X-ray: Exam(s) Completed: Chest X-Ray PERIPHERAL IV DATA: Not applicable SIGNED BY: Charlette Ochoa, RT(R) October 19, 2024 11:35 AM [facility] 10-19-2024 Note HNO ID: [id number] Author: SANDIE TREVINO APRN.SIDE STITCHING MACHINE OPERATOR Service: ? Author Type: Nurse Practitioner Type: Progress Notes Filed: 10/19/2024 14:09 Note Text: [facility] Subjective Edvin Trammell is a 44 year old male. Patient presents with: Cough: Cough, ST, MIX, congestion, fever x 6-7 days 44 year old male with no PMH presents for illness Acute onset 6 days ago +cough +productive +fever, 101 Denies CP Denies dyspnea Denies abdominal pain Denies N/V/D Nicotine pouches Has used Mucinex Night time and day time medicine The history is provided by the patient. No foreign language instructor was used. Cough This is a new problem. The current episode started more than 2 days ago. The problem occurs constantly. The problem has been gradually worsening. The cough is Productive of sputum. The maximum temperature recorded prior to his arrival was 101 to 101.9 F. Pertinent negatives include no chest pain, no chills, no sweats, no weight loss, no ear congestion, no ear pain, no headaches, no rhinorrhea, no sore throat, no myalgias, no shortness of breath, no wheezing and no eye redness. Treatments tried: OTC medicines. The treatment provided no relief. He is not a smoker. His past medical history does not include bronchitis, pneumonia, bronchiectasis, COPD, emphysema or asthma. PAST MEDICAL HISTORY Diagnosis Date Back pain Kyphosis PAST SURGICAL HISTORY Procedure Laterality Date PAST SURGICAL HISTORY OF Left 2008 LT thumb partial amputaition PAST SURGICAL HISTORY OF 96 Kyphosis repair RPR 1ST INGUN HRNA AGE 4 YRS/> REDUCIBLE 12/2012 Hernia repair, inguinal, left ALLERGIES Patient has no known allergies. MEDICATIONS ibuprofen (MOTRIN) 600 mg tablet Take 600 mg by mouth every 6 hours as needed for pain. naproxen sodium (ALEVE ORAL) Take by mouth. amoxicillin-clavulanate potassium (AUGMENTIN) 875-125 mg per tablet Take 1 tablet by mouth two times a day for 7 days. benzonatate (TESSALON PERLE) 100 mg capsule Take 1 capsule by mouth three times a day as needed. FAMILY HISTORY Problem Relation Age of Onset other (spine issue) Mother Systemic Lupus Erythematosus Father other (hiatal hernia) Brother other (ETOH) Maternal Grandmother Leukemia Maternal Grandmother other (ETOH) Maternal Grandfather No Known Problems Paternal Grandmother No Known Problems Paternal Grandfather No Ocular Disease No Family History Social History Tobacco Use Smoking status: Some Days Current packs/day: 0.00 Types: Cigarettes Last attempt to quit: 09/2023 Years since quittin.1 Smokeless tobacco: Current Types: Chew Vaping Use Vaping status: Never Used Substance Use Topics Alcohol use: Yes Comment: once a week 3-5 beers Drug use: Yes Types: Marijuana Review of Systems Constitutional: Negative for chills and weight loss. HENT: Negative for ear pain, rhinorrhea and sore throat. Eyes: Negative for pain, discharge, redness and itching. Respiratory: Positive for cough. Negative for shortness of breath and wheezing. Cardiovascular: Negative for chest pain. Gastrointestinal: Negative for abdominal pain, diarrhea, nausea and vomiting. Musculoskeletal: Negative for myalgias. Skin: Negative for color change, pallor, rash and wound. Allergic/Immunologic: Negative for environmental allergies, food allergies and immunocompromised state. Neurological: Negative for dizziness, facial asymmetry and headaches. Hematological: Negative for adenopathy. Does not bruise/bleed easily. Psychiatric/Behavioral: Negative for agitation and behavioral problems. Objective BP 140/84 Pulse 75 Temp 37.1 ?C (98.8 ?F) (Tympanic) Resp 16 Wt 96.7 kg (213 lb 3 oz) SpO2 96% BMI 32.39 kg/m? Physical Exam Vitals and nursing note reviewed. Constitutional: General: He is not in acute distress. Appearance: Normal appearance. He is not ill-appearing, toxic-appearing or diaphoretic. HENT: Head: Normocephalic and atraumatic. Right Ear: External ear normal. Left Ear: External ear normal. Ears: Comments: Left TM erythematous and bulging Nose: Nose normal. No congestion or rhinorrhea. Mouth/Throat: Mouth: Mucous membranes are moist. Pharynx: Oropharynx is clear. Posterior oropharyngeal erythema present. No oropharyngeal exudate. Eyes: General: Right eye: No discharge. Left eye: No discharge. Extraocular Movements: Extraocular movements intact. Conjunctiva/sclera: Conjunctivae normal. Pupils: Pupils are equal, round, and reactive to light. Cardiovascular: Rate and Rhythm: Normal rate and regular rhythm. Pulses: Normal pulses. Heart sounds: Normal heart sounds. No murmur heard. No friction rub. No gallop. Pulmonary: Effort: Pulmonary effort is normal. No respiratory distress. Breath sounds: Normal breath sounds. No stridor. No wheezing, rhonchi or rales. Chest: Chest wall: No tenderness. Abdominal: General: Abdomen is flat. Th (more content not included)... [facility] 10-19-2024 History of Presen t illness Narrative [facility] Trammell is a 44 year old male. Patient presents with: Cough: Cough, ST, MIX, congestion, fever x 6-7 days 44 year old male with no PMH presents for illness Acute onset 6 days ago +cough +productive +fever, 101 Denies CP Denies dyspnea Denies abdominal pain Denies N/V/D Nicotine pouches Has used Mucinex Night time and day time medicine The history is provided by the patient. No foreign language instructor was used. Cough This is a new problem. The current episode started more than 2 days ago. The problem occurs constantly. The problem has been gradually worsening. The cough is Productive of sputum. The maximum temperature recorded prior to his arrival was 101 to 101.9 F. Pertinent negatives include no chest pain, no chills, no sweats, no weight loss, no ear congestion, no ear pain, no headaches, no rhinorrhea, no sore throat, no myalgias, no shortness of breath, no wheezing and no eye redness. Treatments tried: OTC medicines. The treatment provided no relief. He is not a smoker. His past medical history does not include bronchitis, pneumonia, bronchiectasis, COPD, emphysema or asthma. PAST MEDICAL HISTORY Diagnosis Date Back pain Kyphosis PAST SURGICAL HISTORY Procedure Laterality Date PAST SURGICAL HISTORY OF Left 2008 LT thumb partial amputaition PAST SURGICAL HISTORY OF 96 Kyphosis repair RPR 1ST INGUN HRNA AGE 4 YRS/> REDUCIBLE 12/2012 Hernia repair, inguinal, left ALLERGIES Patient has no known allergies. MEDICATIONS ibuprofen (MOTRIN) 600 mg tablet Take 600 mg by mouth every 6 hours as needed for pain. naproxen sodium (ALEVE ORAL) Take by mouth. amoxicillin-clavulanate potassium (AUGMENTIN) 875-125 mg per tablet Take 1 tablet by mouth two times a day for 7 days. benzonatate (TESSALON PERLE) 100 mg capsule Take 1 capsule by mouth three times a day as needed. FAMILY HISTORY Problem Relation Age of Onset other (spine issue) Mother Systemic Lupus Erythematosus Father other (hiatal hernia) Brother other (ETOH) Maternal Grandmother Leukemia Maternal Grandmother other (ETOH) Maternal Grandfather No Known Problems Paternal Grandmother No Known Problems Paternal Grandfather No Ocular Disease No Family History Social History Tobacco Use Smoking status: Some Days Current packs/day: 0.00 Types: Cigarettes Last attempt to quit: 09/2023 Years since quittin.1 Smokeless tobacco: Current Types: Chew Vaping Use Vaping status: Never Used Substance Use Topics Alcohol use: Yes Comment: once a week 3-5 beers Drug use: Yes Types: Marijuana Review of Systems Constitutional: Negative for chills and weight loss. HENT: Negative for ear pain, rhinorrhea and sore throat. Eyes: Negative for pain, discharge, redness and itching. Respiratory: Positive for cough. Negative for shortness of breath and wheezing. Cardiovascular: Negative for chest pain. Gastrointestinal: Negative for abdominal pain, diarrhea, nausea and vomiting. Musculoskeletal: Negative for myalgias. Skin: Negative for color change, pallor, rash and wound. Allergic/Immunologic: Negative for environmental allergies, food allergies and immunocompromised state. Neurological: Negative for dizziness, facial asymmetry and headaches. Hematological: Negative for adenopathy. Does not bruise/bleed easily. Psychiatric/Behavioral: Negative for agitation and behavioral problems. Objective BP 140/84 Pulse 75 Temp 37.1 C (98.8 F) (Tympanic) Resp 16 Wt 96.7 kg (213 lb 3 oz) SpO2 96% BMI 32.39 kg/m Physical Exam Vitals and nursing note reviewed. Constitutional: General: He is not in acute distress. Appearance: Normal appearance. He is not ill-appearing, toxic-appearing or diaphoretic. HENT: Head: Normocephalic and atraumatic. Right Ear: External ear normal. Left Ear: External ear normal. Ears: Comments: Left TM erythematous and bulging Nose: Nose normal. No congestion or rhinorrhea. Mouth/Throat: Mouth: Mucous membranes are moist. Pharynx: Oropharynx is clear. Posterior oropharyngeal erythema present. No oropharyngeal exudate. Eyes: General: Right eye: No discharge. Left eye: No discharge. Extraocular Movements: Extraocular movements intact. Conjunctiva/sclera: Conjunctivae normal. Pupils: Pupils are equal, round, and reactive to light. Cardiovascular: Rate and Rhythm: Normal rate and regular rhythm. Pulses: Normal pulses. Heart sounds: Normal heart sounds. No murmur heard. No friction rub. No gallop. Pulmonary: Effort: Pulmonary effort is normal. No respiratory distress. Breath sounds: Normal breath sounds. No stridor. No wheezing, rhonchi or rales. Chest: Chest wall: No tenderness. Abdominal: General: Abdomen is flat. There is no distension. Palpations: Abdomen is soft. There is no mass. Tenderness: There is no abdominal tenderness. There is no guarding or rebound. Hernia: No hernia is present. Musculoskeletal: General: No swelling, tenderness, deformity or signs of injury. Normal range of motion. Cervical back: Normal range of motion and neck supple. No rigidity or tenderness. Right lower leg: No edema. Left lower leg: No edema. Lymphadenopathy: Cervical: Cervical adenopathy present. Skin: General: Skin is warm and dry. Capillary Refill: Capillary refill takes less than 2 seconds. Coloration: Skin is not jaundiced or pale. Findings: No bruising, lesion or rash. Neurological: General: No focal deficit present. Mental Status: He is alert and oriented to person, place, and time. Cranial Nerves: No cranial nerve deficit. Sensory: No sensory deficit. Motor: No weakness. Coordination: Coordination normal. Gait: Gait normal. Deep Tendon Reflexes: Reflexes normal. Psychiatric: Mood and Affect: Mood normal. Behavior: Behavior normal. Thought Content: Thought content normal. {ASSESSMENT/PLAN: 1. Acute cough - ICD9: 786.2, ICD10: R05.1 (primary diagnosis) X one week No red flags - XR CHEST 2V FRONTAL/LAT-negative 2. URI, acute - ICD9: 465.9, ICD10: J06.9 - Symptomatic treatment with prn analgesia - Supportive care with fluids and rest - The patient may also use OTC cough and cold meds as needed, warm salt water gargles, throat lozenges and/or OTC throat spray as needed, and nasal saline gtts and suction prn. - Follow up in 3-5 days if symptoms persist or sooner if worsening of symptoms 3. Acute otitis media, left - ICD9: 382.9, ICD10: H66.92 - Will begin treatment with as per antibiotic as written, see orders - The patient should also be given OTC cough and cold meds as needed, warm salt water gargles, throat lozenges and/or OTC throat spray as needed, and nasal saline gtts and suction prn for the first 5-7 days of treatment. - Supportive care with plenty of fluids, rest, and analgesia prn. - Follow up in 3-5 days if symptoms persist or worsen. Sandie Trevino APRN.MARIOLA History and Record Review External record(s) reviewed: prior inpatient record and prior outpatient record. Differential Diagnoses - URI is more likely for the following reason(s): suggested by H&P - aom is more likely for the following reason(s): suggested by H&P - pneumonia is less likely for the following reason(s): no evidence on imaging Contributing Factors Social Determinants of Health significantly affecting care: alcohol use, financial resource strain and food insecurity Disposition The patient was discharged. Procedures documented in this encounter [facility] 07-16-2024 Instructions PodlogCinthia noble APRN.CNP - 07/16/2024 1:31 PM EST [facility] - Insurance Therapy/Counseling [facility] [address] [phone] [facility] [address] [place] [address] [employer] [address] [address] [facility] [address] [facility] [address] [place] [address] [facility] [address] [facility] [address] [place] [address] [facility] [address] [address] [employer] [address] [facility] [place] [address] [facility] [address] [place] [address] Counseling and Psychiatry Services [facility] [address] [place] [address] *counseling [facility] COUN[facility] [address] [facility] [address] *counseling [address] [place] [address] *counseling [facility] [address] [place], [place] [phone] *counseling and psychiatry [address] [place] [address] *counseling [address] [address] *counseling [place] [address] [facility] [phone] *counseling [place] [address] [place] [id number] *counseling [facility] [address] [place], [place] [phone] [facility] [address] [facility] [address] [place] [address] *counseling [facility] [address] [place] [address] [facility] [address] [place], [place] [address] *counseling [facility] [address] [facility] [address] [place] [address] [facility] [address] [facility] [place] [place] [address] *counseling [employer] [address] [place] [address] *counseling [facility] [address] [place], [place] [phone] *counseling and psychiatry [facility], [facility] [address] [facility] [address] [place], [place] [address] *psychiatry [facility] [phone] *grief counseling, individual and groups *If you ever experience a mental health crisis please call [phone] 911, Please verify with insurance provider for coverage documented in this encounter [facility] 07-16-2024 Note HNO ID: [id number] Author: CINTHIA LARA APRN.MARIOLA Service: ? Author Type: Nurse Practitioner Type: Progress Notes Filed: 07/16/2024 14:21 Note Text: 07/16/2024 Patient presents with: Establish Care SUBJECTIVE: This is a 44 year old that is here today for Above Complaints.. Tries to eat higher protein. Play soccer 2-3 times per week. Admits to anxiety/depressive symptoms. Not interested in medication at this time. Attended counseling in the past but not currently. Denies SI or HI. Uses marijuana nightly to help with sleep ALECIA: 9 PHQ9: 21 Past medical, surgical, family, social hx, medications, allergies and health maintenance reviewed and updated PAST MEDICAL HISTORY Diagnosis Date Back pain Kyphosis ALLERGIES Patient has no known allergies. MEDICATIONS Current Outpatient Medications Medication Sig ibuprofen (MOTRIN) 600 mg tablet Take 600 mg by mouth every 6 hours as needed for pain. naproxen sodium (ALEVE ORAL) Take by mouth. No current facility-administered medications for this visit. Medications and allergies reviewed by this provider. SOCIAL HISTORY Social History Tobacco Use Smoking status: Former Current packs/day: 0.00 Types: Cigarettes Quit date: 09/2023 Years since quittin.8 Smokeless tobacco: Never Vaping Use Vaping status: Never Used Substance Use Topics Alcohol use: No Drug use: No REVIEW OF SYSTEMS GENERAL: No weight loss, malaise or fevers HEENT: Negative for frequent or significant headaches, No changes in hearing. no nose bleeds or other nasal problems NECK: Negative for lumps, goiter, pain and significant neck swelling RESPIRATORY: Negative for cough, hemoptysis, wheezing, COPD, dyspnea or shortness of breath CARDIOVASCULAR: Negative for chest pain, leg swelling, hypertension, CHF or palpitations GI: No nausea, vomiting, or diarrhea : No history of dysuria, frequency or incontinence MUSCULOSKELETAL: Negative for joint swelling. Chronic pain in back and hs some generalized joint in hips, knees, shoulders PSYCH: See HPI HEMATOLOGY/LYMPHOLOGY: Negative for prolonged bleeding, bruising easily or swollen nodes ENDOCRINE: Negative for cold or heat intolerance, polyuria, polydipsia and goiter NEURO: No history of headaches, syncope, paralysis, seizures or tremors All other reviewed and negative other than HPI. OBJECTIVE: BP 132/74 Pulse 77 Resp 16 Ht 172.8 cm (5' 8.03) Wt 92.9 kg (204 lb 12.9 oz) SpO2 98% BMI 31.11 kg/m? . Vital signs reviewed by this provider. APPEARANCE Well appearing, alert, in no acute distress, well-hydrated, well nourished. EYES conjunctiva and sclera normal. EARS External ears normal, canals clear NECK Supple, no adenopathy; thyroid symmetric, normal size HEART RRR with normal S1 and S2, no murmurs, no gallops, no JVD appreciated LUNG clear to auscultation. No wheezes, rhonchi or rales ABDOMEN bowel sounds normoactive, no bruits, soft, non-tender, non-distended EXTREMITIES Extremities normal, No deformities, No skin discoloration, and No edema SKIN Skin color, texture, turgor normal, no suspicious rashes or lesions to exposed skin PSYCH: Posture and motor behavior: normal posture and motor behavior Dress, grooming, personal hygiene: normal dress and grooming Facial expression: good eye contact and tearful at times Speech: normal speech Mood: anxious Coherency and relevance of thought: normal thought processes Memory: normal memory Hepatitis C Screening Never done HIV Screening Never done Hepatitis B Vaccine(1 of 3 - 19+ 3-dose series) Never done Pneumococcal Vaccine(1 of 2 - PCV) Never done Lipid Screening Never done Diabetes Screening Never done Colorectal Cancer Screening Never done Influenza Vaccine(1) due on 01/03/2025 Covid-19 Vaccine( - 2023- season) due on 07/16/2025 Depression Screening due on 04/20/2025 Anxiety Screening due on 04/20/2025 DTaP,Tdap,Td Vaccine(2 - Td or Tdap) due on 04/27/2029 HPV Vaccine Aged Out ASSESSMENT/PLAN: 1. Encounter for medical examination to establish care - ICD9: V70.9, ICD10: Z00.00 (primary diagnosis) - Counseled on healthy diet and regular exercise - Colorectal cancer screening - needs to reschedule, verbalizes understanding - Follow up for annual exam in one year - LIPID PANEL BASIC - COMPREHENSIVE METABOLIC PANEL - COMPLETE BLOOD COUNT AND DIFFERENTIAL 2. Anxiety and depression - ICD9: 300.00, 311, ICD10: F41.9, F32.A - patient declining medication - handout of local agencies for counseling provided, counseling encouraged - follow-up as needed 3. Marijuana abuse - ICD9: 305.20, ICD10: F12.10 - cessation encouraged Cinthia Lara, [employer] ST[employer]ING MACHINE OPERATOR Prescription instructions reviewed with patient as applicable. Patient advised if symptoms do not improve or if symptoms worsen sooner, to contact their primary care physician. Potential red flag symptoms discussed with the patient. Rev (more content not included)... [facility] 07-16-2024 History of Presen t illness Narrative 07/16/2024 Patient presents with: Establish Care SUBJECTIVE: This is a 44 year old that is here today for Above Complaints.. Tries to eat higher protein. Play soccer 2-3 times per week. Admits to anxiety/depressive symptoms. Not interested in medication at this time. Attended counseling in the past but not currently. Denies SI or HI. Uses marijuana nightly to help with sleep ALECIA: 9 PHQ9: 21 Past medical, surgical, family, social hx, medications, allergies and health maintenance reviewed and updated PAST MEDICAL HISTORY Diagnosis Date Back pain Kyphosis ALLERGIES Patient has no known allergies. MEDICATIONS Current Outpatient Medications Medication Sig ibuprofen (MOTRIN) 600 mg tablet Take 600 mg by mouth every 6 hours as needed for pain. naproxen sodium (ALEVE ORAL) Take by mouth. No current facility-administered medications for this visit. Medications and allergies reviewed by this provider. SOCIAL HISTORY Social History Tobacco Use Smoking status: Former Current packs/day: 0.00 Types: Cigarettes Quit date: 09/2023 Years since quittin.8 Smokeless tobacco: Never Vaping Use Vaping status: Never Used Substance Use Topics Alcohol use: No Drug use: No REVIEW OF SYSTEMS GENERAL: No weight loss, malaise or fevers HEENT: Negative for frequent or significant headaches, No changes in hearing. no nose bleeds or other nasal problems NECK: Negative for lumps, goiter, pain and significant neck swelling RESPIRATORY: Negative for cough, hemoptysis, wheezing, COPD, dyspnea or shortness of breath CARDIOVASCULAR: Negative for chest pain, leg swelling, hypertension, CHF or palpitations GI: No nausea, vomiting, or diarrhea : No history of dysuria, frequency or incontinence MUSCULOSKELETAL: Negative for joint swelling. Chronic pain in back and hs some generalized joint in hips, knees, shoulders PSYCH: See HPI HEMATOLOGY/LYMPHOLOGY: Negative for prolonged bleeding, bruising easily or swollen nodes ENDOCRINE: Negative for cold or heat intolerance, polyuria, polydipsia and goiter NEURO: No history of headaches, syncope, paralysis, seizures or tremors All other reviewed and negative other than HPI. OBJECTIVE: BP 132/74 Pulse 77 Resp 16 Ht 172.8 cm (5' 8.03) Wt 92.9 kg (204 lb 12.9 oz) SpO2 98% BMI 31.11 kg/m . Vital signs reviewed by this provider. APPEARANCE Well appearing, alert, in no acute distress, well-hydrated, well nourished. EYES conjunctiva and sclera normal. EARS External ears normal, canals clear NECK Supple, no adenopathy; thyroid symmetric, normal size HEART RRR with normal S1 and S2, no murmurs, no gallops, no JVD appreciated LUNG clear to auscultation. No wheezes, rhonchi or rales ABDOMEN bowel sounds normoactive, no bruits, soft, non-tender, non-distended EXTREMITIES Extremities normal, No deformities, No skin discoloration, and No edema SKIN Skin color, texture, turgor normal, no suspicious rashes or lesions to exposed skin PSYCH: Posture and motor behavior: normal posture and motor behavior Dress, grooming, personal hygiene: normal dress and grooming Facial expression: good eye contact and tearful at times Speech: normal speech Mood: anxious Coherency and relevance of thought: normal thought processes Memory: normal memory Hepatitis C Screening Never done HIV Screening Never done Hepatitis B Vaccine(1 of 3 - 19+ 3-dose series) Never done Pneumococcal Vaccine(1 of 2 - PCV) Never done Lipid Screening Never done Diabetes Screening Never done Colorectal Cancer Screening Never done Influenza Vaccine(1) due on 01/03/2025 Covid-19 Vaccine() due on 07/16/2025 Depression Screening due on 04/20/2025 Anxiety Screening due on 04/20/2025 DTaP,Tdap,Td Vaccine(2 - Td or Tdap) due on 04/27/2029 HPV Vaccine Aged Out ASSESSMENT/PLAN: 1. Encounter for medical examination to establish care - ICD9: V70.9, ICD10: Z00.00 (primary diagnosis) - Counseled on healthy diet and regular exercise - Colorectal cancer screening - needs to reschedule, verbalizes understanding - Follow up for annual exam in one year - LIPID PANEL BASIC - COMPREHENSIVE METABOLIC PANEL - COMPLETE BLOOD COUNT AND DIFFERENTIAL 2. Anxiety and depression - ICD9: 300.00, 311, ICD10: F41.9, F32.A - patient declining medication - handout of local agencies for counseling provided, counseling encouraged - follow-up as needed 3. Marijuana abuse - ICD9: 305.20, ICD10: F12.10 - cessation encouraged Cinthia Lara APRN.CNP Prescription instructions reviewed with patient as applicable. Patient advised if symptoms do not improve or if symptoms worsen sooner, to contact their primary care physician. Potential red flag symptoms discussed with the patient. Reviewed appropriate action plan to take if red flag symptoms occur. Patient agreeable to treatment plan. documented in this encounter [facility] 05-28-2024 Note HNO ID: [id number] Author: LUZ RODRÍGUEZ, ? Service: ? Author Type: Physician Type: Progress Notes Filed: 05/28/2024 22:17 Note Text: FOLLOW UP PODIATRIC OFFICE VISIT Chief Complaint: This 44 year old who presents for follow up:right foot Patient presents to clinic for follow-up right foot His biggest complaint is burning of right 3rd toe. The burning is located to the dorsal aspect of right 3rd toe. He has been using orthotics and this has helped with pain. He has new xrays to review. He recently had ultrasound. PAIN EVALUATION 05/27/2024 0949 05/27/2024 1540 Pain Level: 5 -- Pain Location: Foot-Right -- Description: Burning -- Duration Amount of Time: 6 -- Duration Units: Months -- Frequency: Continuous Intermittent Intervention/Comfort measure: Medication;Reposition;Cold;Distr actions;EmotionalSupport/Reassur ance;Massage -- No results found for: HBA1C PCP: No primary care provider on file. PAST MEDICAL HISTORY Diagnosis Date Back pain Kyphosis Current Outpatient Medications Medication Sig ibuprofen (MOTRIN) 600 mg tablet Take 600 mg by mouth every 6 hours as needed for pain. naproxen sodium (ALEVE ORAL) Take by mouth. No current facility-administered medications for this visit. ALLERGIES No Known Allergies PAST SURGICAL HISTORY Procedure Laterality Date PAST SURGICAL HISTORY OF Left 2008 LT thumb partial amputaition PAST SURGICAL HISTORY OF 96 Kyphosis repair RPR 1ST INGUN HRNA AGE 4 YRS/> REDUCIBLE 12/2012 Hernia repair, inguinal, left Physical Exam: OBJECTIVE: Constitutional: Pt is a well developed 44 year old male who is alert, oriented, cooperative and in no apparent distress. Eyes: Following during examination. No redness or drainage. Respiratory: RR normal and nonlabored. Even breathing. No evidence of distress. Psychology: Patient is engaged during conversation. Normal affect and mood. Does not appear depressed or anxious. NVSI unchanged from previous visit. Dermatological: Nails 1-5 b/l are normal. Webspaces clean and dry 1-4 b/l. Skin appears well hydrated and supple. good color, texture, turgor. No open lesions present. No callosities present. Musculoskeletal/Orthopaedic: Patient has pain to palpation of right 3rd toe, dorsal pipj No pain of right 3rd interspace - kesha sign Minimal pain to plantar aspect of right 3rd metatarsal Xrays of right foot reviewed. No acute fracture is noted. ASSESSMENT: (M77.8) Capsulitis of foot, right (primary encounter diagnosis) (S99.921S) Plantar plate injury, right, sequela PLAN: Discussed pain in right foot. His pain is primarily a burning sensation to the dorsal aspect of right 3rd toe. The pain has improved with inserts. I reviewed his ultrasound results. Results are suggestive of bursitis vs capsulitis vs plantar plate tearing of right 3rd toe medial aspect. I discussed options not limited to continued use of the inserts, ultrasound guided injection into bursae, taping of the right 3rd toe vs surgical management of possible plantar plate tear. After much discussion, patient has elected to tape the toe and continue with inserts. He will do this for a short period of time and can return to clinic in 3-4 weeks to see how he is doing. Luz Rodríguez DPM [facility] 05-28-2024 History of Presen t illness Narrative Images from the original note were not included. FOLLOW UP PODIATRIC OFFICE VISIT Chief Complaint: This 44 year old who presents for follow up:right foot Patient presents to clinic for follow-up right foot His biggest complaint is burning of right 3rd toe. The burning is located to the dorsal aspect of right 3rd toe. He has been using orthotics and this has helped with pain. He has new xrays to review. He recently had ultrasound. PAIN EVALUATION 05/27/2024 0949 05/27/2024 1540 Pain Level: 5 -- Pain Location: Foot-Right -- Description: Burning -- Duration Amount of Time: 6 -- Duration Units: Months -- Frequency: Continuous Intermittent Intervention/Comfort measure: Medication;Reposition;Cold;Distr actions;Emotional Support/Reassurance;Massage -- No results found for: HBA1C PCP: No primary care provider on file. PAST MEDICAL HISTORY Diagnosis Date Back pain Kyphosis Current Outpatient Medications Medication Sig ibuprofen (MOTRIN) 600 mg tablet Take 600 mg by mouth every 6 hours as needed for pain. naproxen sodium (ALEVE ORAL) Take by mouth. No current facility-administered medications for this visit. ALLERGIES No Known Allergies PAST SURGICAL HISTORY Procedure Laterality Date PAST SURGICAL HISTORY OF Left 2008 LT thumb partial amputaition PAST SURGICAL HISTORY OF 96 Kyphosis repair RPR 1ST INGUN HRNA AGE 4 YRS/> REDUCIBLE 12/2012 Hernia repair, inguinal, left Physical Exam: OBJECTIVE: Constitutional: Pt is a well developed 44 year old male who is alert, oriented, cooperative and in no apparent distress. Eyes: Following during examination. No redness or drainage. Respiratory: RR normal and nonlabored. Even breathing. No evidence of distress. Psychology: Patient is engaged during conversation. Normal affect and mood. Does not appear depressed or anxious. NVSI unchanged from previous visit. Dermatological: Nails 1-5 b/l are normal. Webspaces clean and dry 1-4 b/l. Skin appears well hydrated and supple. good color, texture, turgor. No open lesions present. No callosities present. Musculoskeletal/Orthopaedic: Patient has pain to palpation of right 3rd toe, dorsal pipj No pain of right 3rd interspace - kesha sign Minimal pain to plantar aspect of right 3rd metatarsal Xrays of right foot reviewed. No acute fracture is noted. ASSESSMENT: (M77.8) Capsulitis of foot, right (primary encounter diagnosis) (S99.921S) Plantar plate injury, right, sequela PLAN: Discussed pain in right foot. His pain is primarily a burning sensation to the dorsal aspect of right 3rd toe. The pain has improved with inserts. I reviewed his ultrasound results. Results are suggestive of bursitis vs capsulitis vs plantar plate tearing of right 3rd toe medial aspect. I discussed options not limited to continued use of the inserts, ultrasound guided injection into bursae, taping of the right 3rd toe vs surgical management of possible plantar plate tear. After much discussion, patient has elected to tape the toe and continue with inserts. He will do this for a short period of time and can return to clinic in 3-4 weeks to see how he is doing. Luz Rodríguez DPM AMB ROOMING INTAKE FLOWSHEET DATA Pain Pain Level: 5 Pain Location: Foot-Right Description: Burning Duration Amount of Time: 6 Duration Units: Months Frequency: Intermittent Intervention/Comfort measure: Medication, Reposition, Cold, Distractions, Emotional Support/Reassurance, Massage Patient presents with: Right Foot - Established Patient, Pain, Follow Up Crystal Sparrow LPN documented in this encounter [facility] 05-27-2024 Note HNO ID: [id number] Author: CRYSTAL SPARROW LPN Service: ? Author Type: LICENSED NURSE Type: Progress Notes Filed: 05/28/2024 22:17 Note Text: AMB ROOMING INTAKE FLOWSHEET DATA Pain Pain Level: 5 Pain Location: Foot-Right Description: Burning Duration Amount of Time: 6 Duration Units: Months Frequency: Intermittent Intervention/Comfort measure: Medication, Reposition, Cold, Distractions, Emotional Support/Reassurance, Massage Patient presents with: Right Foot - Established Patient, Pain, Follow Up Crystal Sparrow LPN [facility] 05-27-2024 History of Presen t illness Narrative Radiology Service Progress Note PATIENT NAME: Edvin Trammell DATE OF SERVICE: May 27, 2024 TIME: 4:24 PM PATIENT IDENTITY VERIFICATION COMPLETED USING TWO (2) IDENTIFIERS: Name and Date of confirmed by patient verbally. FALL SCREENING: Has the patient had 2 falls in the last year or 1 fall with injury or currently using an Ambulatory Assistive Device (Walker, Cane, Wheelchair, Crutches, etc.)? No PATIENT GENDER DATA: Male PATIENT RELEVANT IMPLANT DATA REVIEWED: Not Applicable PATIENT PRESENTS WITH AN IMPLANTABLE OR ATTACHED FIRST AID INSTRUCTOR: No RADIOLOGY DEPARTMENT: General X-ray: Exam(s) Completed: Lower Extremity X-Ray(s): Foot, Right and Wt. Bearing PERIPHERAL IV DATA: Not applicable SIGNED BY: RT Selene(R) May 27, 2024 4:24 PM documented in this encounter [facility] 05-27-2024 Note HNO ID: [id number] Author: TERI NG RT(R) Service: ? Author Type: Technologist Type: Progress Notes Filed: 05/27/2024 16:24 Note Text: Radiology Service Progress Note PATIENT NAME: Edvin Trammell DATE OF SERVICE: May 27, 2024 TIME: 4:24 PM PATIENT IDENTITY VERIFICATION COMPLETED USING TWO (2) IDENTIFIERS: Name and Date of confirmed by patient verbally. FALL SCREENING: Has the patient had 2 falls in the last year or 1 fall with injury or currently using an Ambulatory Assistive Device (Walker, Cane, Wheelchair, Crutches, etc.)? No PATIENT GENDER DATA: Male PATIENT RELEVANT IMPLANT DATA REVIEWED: Not Applicable PATIENT PRESENTS WITH AN IMPLANTABLE OR ATTACHED FIRST AID INSTRUCTOR: No RADIOLOGY DEPARTMENT: General X-ray: Exam(s) Completed: Lower Extremity X-Ray(s): Foot, Right and Wt. Bearing PERIPHERAL IV DATA: Not applicable SIGNED BY: RT Selene(R) May 27, 2024 4:24 PM [facility] 05-21-2024 Telephone encounter Note Images from the original note were not included. Luz Rodríguez [facility] Pod[facility] Pool12 hours ago (7:53 PM) See telephone encounter Luz Rodríguez DPM [facility] 05-21-2024 Miscellaneous Notes Images from the original note were not included. Luz Rodríguez [facility] Podiat[facility] Pool12 hours ago (7:53 PM) See telephone encounter Luz Rodríguez DPM Images from the original note were not included. Luz Rodríguez Podiatry Pool14 minutes ago (1:05 PM) PLease call patient to inform him that I got the results yesterday. I will attempt to contact patient by telephone today Luz Rodríguez DPM Patients called asking for results. documented in this encounter [facility] 05-20-2024 Telephone encounter Note I called patient and I reviewed his xrays and ultrasound. Most of his pain is along the 3rd metatarsal. Past xrays show thickening of the shaft. This can be present in stress injury. The boot and/or shoe with insert does help with his pain but he still has pain at times. Most of the pain is along the dorsal aspect of foot and not plantar. Ultraound was suggestive of plantar plate tear, capsullitis of the 3rd metatarsal head and synovitis. I would like to repeat xrays. If xrays show no fracture, then it is possible the pain is from the plantar plate/synovitis/bursitis. Options going forward would be to continue with inserts and perhaps taping of the toe. If pain fails to improve, could consider plantar plate repair. I will have patient get xrays. Will call with results. May have him come in to office after xrays reviewed to discuss options/taping technique Luz Rodríguez DPM [facility] 05-20-2024 Miscellaneous Notes I called patient and I reviewed his xrays and ultrasound. Most of his pain is along the 3rd metatarsal. Past xrays show thickening of the shaft. This can be present in stress injury. The boot and/or shoe with insert does help with his pain but he still has pain at times. Most of the pain is along the dorsal aspect of foot and not plantar. Ultraound was suggestive of plantar plate tear, capsullitis of the 3rd metatarsal head and synovitis. I would like to repeat xrays. If xrays show no fracture, then it is possible the pain is from the plantar plate/synovitis/bursitis. Options going forward would be to continue with inserts and perhaps taping of the toe. If pain fails to improve, could consider plantar plate repair. I will have patient get xrays. Will call with results. May have him come in to office after xrays reviewed to discuss options/taping technique Luz Rodríguez DPM documented in this encounter [facility] 05-20-2024 Telephone encounter Note Images from the original note were not included. Luz Rodríguez [facility] Pool14 minutes ago (1:05 PM) PLease call patient to inform him that I got the results yesterday. I will attempt to contact patient by telephone today Luz Rodríguez DPM [facility] 05-20-2024 Telephone encounter Note Patients called asking for results. [facility] 05-04-2024 History of Presen t illness Narrative Radiology Service Progress Note PATIENT NAME: Edvin Trammell DATE OF SERVICE: May 04, 2024 TIME: 11:55 AM PATIENT IDENTITY VERIFICATION COMPLETED USING TWO (2) IDENTIFIERS: Name and Date of confirmed by patient verbally. FALL SCREENING: Has the patient had 2 falls in the last year or 1 fall with injury or currently using an Ambulatory Assistive Device (Walker, Cane, Wheelchair, Crutches, etc.)? No PATIENT GENDER DATA: Male PATIENT RELEVANT IMPLANT DATA REVIEWED: Yes PATIENT PRESENTS WITH AN IMPLANTABLE OR ATTACHED FIRST AID INSTRUCTOR: No RADIOLOGY DEPARTMENT: General X-ray: Exam(s) Completed: Lower Extremity X-Ray(s): Foot, Right PERIPHERAL IV DATA: Not applicable SIGNED BY: RT Nathan(Fay) May 04, 2024 11:55 AM documented in this encounter [facility] 05-04-2024 Note HNO ID: [id number] Author: MARIA EUGENIA LEVI RT(R) Service: ? Author Type: Marker Machine Type: Progress Notes Filed: 05/04/2024 12:03 Note Text: Radiology Service Progress Note PATIENT NAME: Edvin Trammell DATE OF SERVICE: May 04, 2024 TIME: 11:55 AM PATIENT IDENTITY VERIFICATION COMPLETED USING TWO (2) IDENTIFIERS: Name and Date of confirmed by patient verbally. FALL SCREENING: Has the patient had 2 falls in the last year or 1 fall with injury or currently using an Ambulatory Assistive Device (Walker, Cane, Wheelchair, Crutches, etc.)? No PATIENT GENDER DATA: Male PATIENT RELEVANT IMPLANT DATA REVIEWED: Yes PATIENT PRESENTS WITH AN IMPLANTABLE OR ATTACHED FIRST AID INSTRUCTOR: No RADIOLOGY DEPARTMENT: General X-ray: Exam(s) Completed: Lower Extremity X-Ray(s): Foot, Right PERIPHERAL IV DATA: Not applicable SIGNED BY: RT Nathan(Fay) May 04, 2024 11:55 AM [facility] 05-04-2024 Note HNO ID: [id number] Author: CRYSTAL SPARROW LPN Service: ? Author Type: LICENSED NURSE Type: Progress Notes Filed: 05/04/2024 11:59 Note Text: Per Dr. Rodríguez Edvin was provided with donjoy aircast, size L, and instructed/educated in its application, wear, and care. All questions were answered, and patient was able to demonstrate competence with the necessary skills to utilize the above equipment. Billed to Ranjan. Crystal Sparrow LPN [facility] 05-04-2024 History of Presen t illness Narrative Per Dr. Rodríguez, Edvin was provided with don[employer]share aircast, size L, and instructed/educated in its application, wear, and care. All questions were answered, and patient was able to demonstrate competence with the necessary skills to utilize the above equipment. Billed to [employer] Crystal Sparrow LPN Images from the original note were not included. FOLLOW UP PODIATRIC OFFICE VISIT Chief Complaint: This 44 year old who presents for follow up:right foot pain Patient presents to clinic for follow-up right foot Continues to complain of pain to the right foot Had an oral steroid which did help but it did not completely resolve his pain He took some time off athletics but recently returned to activity, and the pain returned. He currently reports the pain as 7/10. PAIN EVALUATION 05/02/2024205605/04/2024 1105 Pain Level: 7 7 Pain Location: Foot-Right Foot-Right Description: Burning Burning Duration Amount of Time: 8 -- Duration Units: Months Months Frequency: Continuous Continuous Intervention/Comfort measure: Medication;Reposition;Relaxation ;Cold;Distractions;Emotional Support/Reassurance;Exercise;Hea t;Positioning -- No results found for: HBA1C PCP: No primary care provider on file. PAST MEDICAL HISTORY Diagnosis Date Back pain Kyphosis Current Outpatient Medications Medication Sig ibuprofen (MOTRIN) 600 mg tablet Take 600 mg by mouth every 6 hours as needed for pain. naproxen sodium (ALEVE ORAL) Take by mouth. No current facility-administered medications for this visit. ALLERGIES No Known Allergies PAST SURGICAL HISTORY Procedure Laterality Date PAST SURGICAL HISTORY OF Left 2008 LT thumb partial amputaition PAST SURGICAL HISTORY OF 96 Kyphosis repair RPR 1ST INGUN HRNA AGE 4 YRS/> REDUCIBLE 12/2012 Hernia repair, inguinal, left Physical Exam: OBJECTIVE: Constitutional: Pt is a well developed 44 year old male who is alert, oriented, cooperative and in no apparent distress. Eyes: Following during examination. No redness or drainage. Respiratory: RR normal and nonlabored. Even breathing. No evidence of distress. Psychology: Patient is engaged during conversation. Normal affect and mood. Does not appear depressed or anxious. NVSI unchanged from previous visit. Dermatological: Nails 1-5 b/l are normal. Webspaces clean and dry 1-4 b/l. Skin appears well hydrated and supple. good color, texture, turgor. No open lesions present. No callosities present. Musculoskeletal/Orthopaedic: Patient has pain to palpation of right 3rd metatarsal shaft. Some pain to palpation of right 2nd interspace Pain more apparent to right 3rd metatarsal shaft ASSESSMENT: (D36.10) Neuroma (primary encounter diagnosis) (M77.8) Capsulitis of foot, right (M79.671) Right foot pain (X50.3XXA) Repetitive stress injury PLAN: Discussed pain in right foot. Differential still includes neuroma vs capsulitis vs plantar plate attenuation. Await ultrasound to determine if patient would benefit from an injection Given the pain however along the dorsal 3rd metatarsal shaft, I would like to repeat an xray to assure no stress fracture Given the pain present today, would recommend he continue with rest. Would have patient use pneumatic boot. If xrays are negative and ultrasound inconclusive, consider mri Will hold on injection for now Luz Rodríguez DPM documented in this encounter [facility] 05-04-2024 Note HNO ID: [id number] Author: LUZ RODRÍGUEZ, ? Service: ? Author Type: Physician Type: Progress Notes Filed: 05/04/2024 11:59 Note Text: FOLLOW UP PODIATRIC OFFICE VISIT Chief Complaint: This 44 year old who presents for follow up:right foot pain Patient presents to clinic for follow-up right foot Continues to complain of pain to the right foot Had an oral steroid which did help but it did not completely resolve his pain He took some time off athletics but recently returned to activity, and the pain returned. He currently reports the pain as /10. PAIN EVALUATION 05/02/2024205605/04/2024 1105 Pain Level: 7 7 Pain Location: Foot-Right Foot-Right Description: Burning Burning Duration Amount of Time: 8 -- Duration Units: Months Months Frequency: Continuous Continuous Intervention/Comfort measure: Medication;Reposition;Relaxation ;Cold;Distractions;Emotional Support/Reassurance;Exercise;Hea t;Positioning -- No results found for: HBA1C PCP: No primary care provider on file. PAST MEDICAL HISTORY Diagnosis Date Back pain Kyphosis Current Outpatient Medications Medication Sig ibuprofen (MOTRIN) 600 mg tablet Take 600 mg by mouth every 6 hours as needed for pain. naproxen sodium (ALEVE ORAL) Take by mouth. No current facility-administered medications for this visit. ALLERGIES No Known Allergies PAST SURGICAL HISTORY Procedure Laterality Date PAST SURGICAL HISTORY OF Left 2008 LT thumb partial amputaition PAST SURGICAL HISTORY OF 96 Kyphosis repair RPR 1ST INGUN HRNA AGE 4 YRS/> REDUCIBLE 12/2012 Hernia repair, inguinal, left Physical Exam: OBJECTIVE: Constitutional: Pt is a well developed 44 year old male who is alert, oriented, cooperative and in no apparent distress. Eyes: Following during examination. No redness or drainage. Respiratory: RR normal and nonlabored. Even breathing. No evidence of distress. Psychology: Patient is engaged during conversation. Normal affect and mood. Does not appear depressed or anxious. NVSI unchanged from previous visit. Dermatological: Nails 1-5 b/l are normal. Webspaces clean and dry 1-4 b/l. Skin appears well hydrated and supple. good color, texture, turgor. No open lesions present. No callosities present. Musculoskeletal/Orthopaedic: Patient has pain to palpation of right 3rd metatarsal shaft. Some pain to palpation of right 2nd interspace Pain more apparent to right 3rd metatarsal shaft ASSESSMENT: (D36.10) Neuroma (primary encounter diagnosis) (M77.8) Capsulitis of foot, right (M79.671) Right foot pain (X50.3XXA) Repetitive stress injury PLAN: Discussed pain in right foot. Differential still includes neuroma vs capsulitis vs plantar plate attenuation. Await ultrasound to determine if patient would benefit from an injection Given the pain however along the dorsal 3rd metatarsal shaft, I would like to repeat an xray to assure no stress fracture Given the pain present today, would recommend he continue with rest. Would have patient use pneumatic boot. If xrays are negative and ultrasound inconclusive, consider mri Will hold on injection for now Luz Rodríguez DPM [facility] 04-20-2024 Instructions Yariel Carter APRN.[facility] - 04/20/2024 10:41 AM EDT [facility] [phone] [facility] [phone] [facility] [phone] COLONOSCOPY BOWEL PREPARATION INSTRUCTIONS GOLYTELY/NULYTELY/TRILYTE/COLYTE Your doctor has scheduled you for a colonoscopy. To have a successful colonoscopy, you must have a clean colon, that is empty. A clean colon allows your doctor to see the entire colon & diagnose issues like polyps or cancer. For doctors, a clean colon is like driving on a [place] day; a dirty colon like driving in a storm. It is very important that you follow these instructions exactly, or your colonoscopy might not be as effective, could be canceled, and you may need to do the bowel prep and the colonoscopy again. TRANSPORTATION REQUIREMENTS You are receiving IV sedation. For your safety, a responsible adult escort must accompany you to and from your procedure: Your adult escort MUST be present with you at check-in for your colonoscopy. Your adult escort MUST remain in the endoscopy area until you are discharged. Your adult escort MUST transport you home once you are discharged. You are NOT allowed to operate any form of transportation (i.e. drive a car, bicycle, etc.) or leave the Endoscopy Center ALONE. It is not safe to do so. If you cannot meet these requirements, your procedure will be canceled. MEDICATION REQUIREMENTS For your safety, certain medications will need to be stopped or adjusted before you can have your procedure: BLOOD THINNERS: If you take blood thinners, such as Coumadin (warfarin), Plavix (clopidogrel), Ticlid (ticlopidine hydrochloride), Agrylin (anagrelide), Xarelto (Rivaroxaban), Pradaxa (Dabigatran), Eliquis (Apixaban), or Effient (Prasugrel), contact the physician who is prescribing these medications at least 2 weeks prior to your procedure to discuss any necessary adjustments. DIABETES: If you take medications for diabetes, your dosage may need to be adjusted. If you are being treated for diabetes with insulin, diabetic pills, or other injectable medications do not take your REGULAR dose after midnight on the day of your procedure. If you are taking any other types of insulin such as Lantus, Humalog, NPH (long-acting insulin), or 70/30 insulin, take half your normal dose the day before your procedure. DIABETES/WEIGHT MANAGEMENT: If you take medications for weight-loss, your dosage may need to be adjusted Contact the doctor who prescribes this medication for further instructions. If you take medications for weight-loss like semaglutide (Ozempic, Wegovy, Rybelsus), dulaglutide (Trulicity), liraglutide (Victoza, Saxenda), exenatide (Byetta, Bydureon), or lixisenatide (Adylyxin), stop your medication 1 week prior to your procedure. If you take medications like canagliflozin (Invokana), dapagliflozin (Farxiga, Forxiga), empagliflozin (Jardiance), stop your medication 3 days prior to your procedure. If you take ertugliflozin (Steglatro) stop your medication 4 days prior to your procedure. IRON: If you take iron pills, STOP them 1 week BEFORE your procedure, may resume after. OTHER MEDS: May take all other medications (including aspirin, antibiotics, water pills / diuretics like Lasix or Metolozone, blood pressure meds, etc.) at their usual scheduled time with a sip of water. DIET REQUIREMENTS The day before your colonoscopy, you may have a clear liquid diet (see below). The day of your colonoscopy, you may continue a clear liquid diet until 3 hours before your colonoscopy. Within 3 hours of your colonoscopy, take only any medications (as above) with a sip of water. Clear Liquid Diet Broth (chicken, beef or vegetable broth or bullion. Just the broth, no solids). Water Coffee or Tea (NO milk or creamer), but sugar and sugar substitutes are allowed. Clear liquids including clear, yellow, green, blue (NO red, NO orange, NO purple) Sodas / soft drinks Gatorade or other sports drinks Curry-Aid or flavored drinks Plain Jell-O or other gelatins Fruit juice (strained; no-pulp) Popsicles or hard candy BOWEL PREPARATION (GOLYTELY/NULYTELY/TRILYTE/COLYT E) Split Dosing Bowel Prep: This means drinking your bowel prep in two doses. Split dosing helps clean your colon better and makes it less likely that your procedure will be canceled. Fill your prescription for Golytely/Nulytely/Trilyte/Colyte : The afternoon before your colonoscopy, mix the solution and refrigerate. You may add the flavor pack (if present) that came with the bowel preparation. Do not add ice, sugar, or other flavorings to the solution. You will drink your prep in two doses, by several hours. On the evening before your colonoscopy: 1. 6 PM drink the first half of the bowel preparation solution. Drink one 8-ounce glass every 15 minutes. 2. Six hours before your colonoscopy, drink the second half of the solution. Drink one 8-ounce glass every 15 minutes. 3. You may continue a clear liquid diet until 3 hours before your colonoscopy. Bowel prep can work differently from person to person. Some people's bowels move slowly and they may need different instructions. Please see your doctor in office or virtually for personalized bowel prep instructions if you have: Medical condition that needs special accommodations Had a poor bowel prep results or failed bowel prep attempts in the past. Had difficulty with anesthesia during the procedure. FREQUENTLY ASKED QUESTIONS Q: What if I suffer from constipation? A: Recommend taking extra laxatives to resolve your constipation days prior to entering the bowel prep day. Q: What if have had prior poor preps results in past? A: Contact your physician as you will likely need additional bowel prep instructions. Q: What if I have motility issues like Parkinson's, MS (multiple sclerosis), wheelchair dependent, etc.? or on medications that slow bowel emptying (narcotics, gabapentin, anticholinergic medications etc.) A: Contact your physician as you will likely need extra time and additional laxatives to complete your bowel prep. Q: What if I cannot drink large volume of liquid? A: Start your prep 2-3 hours earlier to allow yourself more time to complete the entire prep. Q: What if I can't finish my bowel prep? A: If you cannot finish your entire bowel prep, it is likely that your colonoscopy will need to be rescheduled due to poor prep quality. Q: What if I had bariatric surgery? Do I still have to complete the entire prep? A: Yes, gastric bypass surgery involves the stomach & small bowel. You may need to drink smaller amounts, slower (may need more time to complete your bowel prep). Gastric bypass does not alter the length of your colon so you will need to complete the entire bowel prep, it may just take longer time to complete it. Q: What if I am on dialysis? A: Please consult your christian science reader prior to scheduling to get instructions pertinent to you. In general, dialysis patients take the Golytely bowel prep and have the procedure same day of their dialysis (colonoscopy in AM, dialysis in PM). Q: How do I know if something is considered as clear liquid diet? A: If you can pour it in a glass and you can see through it, it is considered clear liquid Q: Can I eat nuts, seeds, beans, popcorn, dried fruits, vegetables & fruits that have skin peel? A: No, you will need to not eat these items starting 3 days prior to procedure. Q: Can I take Uber/Lyft/taxi/bus home? A: An adult MUST be present with you at check-in for your colonoscopy and remain in the endoscopy area until you are discharged. You can take Uber home only if this adult escort is with you at check in, remain in the endoscopy area until you are discharged, and takes the Uber with you to home. Q: Can I sleep it off here and drive myself home? A: No, you must have an adult with you at time of procedure check in, remain in the endoscopy center during your procedure, and drive you home. You cannot drive a vehicle after your procedure the rest of the day. documented in this encounter [facility] 04-20-2024 Note HNO ID: [id number] Author: YARIEL CARTER APRN.[facility] Service: ? Author Type: Nurse Practitioner Type: Progress Notes Filed: 04/20/2024 11:10 Note Text: GENERAL VISIT Patient seen on [employer] Video Visit platform. I have communicated my name and active licensure. The patient's identity and physical location were verified at the time of this visit. Either the patient or their legal premium representative has been informed of the risks and benefits of -- and alternatives to -- treatment through a remote evaluation and consents to proceed with the evaluation remotely. CC: Edvin Trammell is a 44 year old male who presents with a need to establish care. Patient in need to establish care to begin to complete routine health maintenance. Patient is seeking PCP in the [facility]. Patient has a longstanding history of lumbar kyphosis with repair in 1995. Patient has been aware for quite some time of possible wilberto fracture. Patient has noticed he has more flexion and extension in his thoracic lumbar region than previous years. Limitations with rods postsurgical had reports of 2 areas of flexion and extension now patient believes he has 3 areas of flexion extension. Patient noticed mild numbness or tingling or my feet falling asleep when I have both feet on a coffee table sitting in the couch position. Patient able to resolve the symptoms by standing and increasing blood flow to lower extremities. Patient had surgeries completed at [facility] prior to electronic charting. Patient also secondarily sees podiatry with the [facility] for right second toe pain. Podiatry plans for joint injections. 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 Patient will obtain colonoscopy, routine labs. While establishing care in the [facility], patient will also follow-up with previously established costuming supervisor and spine medicine. Subjective Symptoms include: Establish Care, Chronic second right toe pain, chronic Lumbar pain The patient denies: CP, SOB, ABD without N/V/D, Numbness/Tingling, SI/HI Reviewed: problem list, medical history, medication list, and allergies ALLERGIES No Known Allergies Medications: ibuprofen (MOTRIN) 600 mg tablet Take 600 mg by mouth every 6 hours as needed for pain. naproxen sodium (ALEVE ORAL) Take by mouth. Objective Video Exam GENERAL: well appearing, alert, in no acute distress HEENT: no conjunctival injection, pupils equal and moist mucous membranes PULMONARY: breathing comfortably on room air ABDOMEN: non-distended, no tenderness to self-palpation EXTREMITY: no visible lower extremity edema ASSESSMENT/PLAN: 1. Encounter to establish care - ICD9: V65.8, ICD10: Z76.89 (primary diagnosis) - ESTABLISH WITH PRIMARY CARE - NEW PATIENT - COMPLETE BLOOD COUNT - COMPREHENSIVE METABOLIC PANEL - LIPID PANEL BASIC - HEMOGLOBIN A1C 2. Toe pain, chronic, right - ICD9: 729.5, 338.29, ICD10: M79.674, G89.29 - Continue treatment plan for podiatry 3. Screening for HIV (human immunodeficiency virus) - ICD9: V73.89, ICD10: Z11.4 - HIV 1/2 COMBO WITH REFLEX TO DIFFERENTIATION 4. Special screening examination for viral disease - ICD9: V73.99, ICD10: Z11.59 - HEPATITIS C ANTIBODY IA WITH CONFIRMATION 5. Screening for colon cancer - ICD9: V76.51, ICD10: Z12.11 - PEG 3350-ELECTROLYTES 236 GRAM-22.74 GRAM-6.74 GRAM-5.86 GRAM SOLUTION - COLONOSCOPY SCREENING 6. Screening for depression - ICD9: V79.0, ICD10: Z13.31 - DEPRESSION SCREENING 7. Encounter for screening examination for other mental health and behavioral disorders - ICD9: V79.8, ICD10: Z13.39 - ANXIETY SCREENING 8. Chronic bilateral low back pain without sciatica - ICD9: 724.2, 338.29, ICD10: M54.50, G89.29 - [facility] 9. Postural kyphosis of thoracic region - ICD9: 737.10, ICD10: M40.04 - [facility] AVS instructions reviewed with patient. Please refer to AVS instructions for additional plan and education. Please follow up with PCP, newly established PCP, or Virtual Primary Team as directed. Yariel Carter, REGISTERED RADIOLOGIC TECHNOLOGIST.[address], [address] [place] [address] P: F: [phone] [facility] 04-20-2024 History of Presen t illness Narrative GENERAL VISIT Patient seen on [employer] Video Visit platform. I have communicated my name and active licensure. The patient's identity and physical location were verified at the time of this visit. Either the patient or their legal premium representative has been informed of the risks and benefits of -- and alternatives to -- treatment through a remote evaluation and consents to proceed with the evaluation remotely. CC: Edvin Trammell is a 44 year old male who presents with a need to establish care. Patient in need to establish care to begin to complete routine health maintenance. Patient is seeking PCP in the [facility]. Patient has a longstanding history of lumbar kyphosis with repair in 1995. Patient has been aware for quite some time of possible wilberto fracture. Patient has noticed he has more flexion and extension in his thoracic lumbar region than previous years. Limitations with rods postsurgical had reports of 2 areas of flexion and extension now patient believes he has 3 areas of flexion extension. Patient noticed mild numbness or tingling or my feet falling asleep when I have both feet on a coffee table sitting in the couch position. Patient able to resolve the symptoms by standing and increasing blood flow to lower extremities. Patient had surgeries completed at [facility] prior to electronic charting. Patient also secondarily sees podiatry with the [facility] for right second toe pain. Podiatry plans for joint injections. 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 Patient will obtain colonoscopy, routine labs. While establishing care in the [place] area, patient will also follow-up with previously established costuming supervisor and spine medicine. Subjective Symptoms include: Establish Care, Chronic second right toe pain, chronic Lumbar pain The patient denies: CP, SOB, ABD without N/V/D, Numbness/Tingling, SI/HI Reviewed: problem list, medical history, medication list, and allergies ALLERGIES No Known Allergies Medications: ibuprofen (MOTRIN) 600 mg tablet Take 600 mg by mouth every 6 hours as needed for pain. naproxen sodium (ALEVE ORAL) Take by mouth. Objective Video Exam GENERAL: well appearing, alert, in no acute distress HEENT: no conjunctival injection, pupils equal and moist mucous membranes PULMONARY: breathing comfortably on room air ABDOMEN: non-distended, no tenderness to self-palpation EXTREMITY: no visible lower extremity edema ASSESSMENT/PLAN: 1. Encounter to establish care - ICD9: V65.8, ICD10: Z76.89 (primary diagnosis) - ESTABLISH WITH PRIMARY CARE - NEW PATIENT - COMPLETE BLOOD COUNT - COMPREHENSIVE METABOLIC PANEL - LIPID PANEL BASIC - HEMOGLOBIN A1C 2. Toe pain, chronic, right - ICD9: 729.5, 338.29, ICD10: M79.674, G89.29 - Continue treatment plan for podiatry 3. Screening for HIV (human immunodeficiency virus) - ICD9: V73.89, ICD10: Z11.4 - HIV 1/2 COMBO WITH REFLEX TO DIFFERENTIATION 4. Special screening examination for viral disease - ICD9: V73.99, ICD10: Z11.59 - HEPATITIS C ANTIBODY IA WITH CONFIRMATION 5. Screening for colon cancer - ICD9: V76.51, ICD10: Z12.11 - PEG 3350-ELECTROLYTES 236 GRAM-22.74 GRAM-6.74 GRAM-5.86 GRAM SOLUTION - COLONOSCOPY SCREENING 6. Screening for depression - ICD9: V79.0, ICD10: Z13.31 - DEPRESSION SCREENING 7. Encounter for screening examination for other mental health and behavioral disorders - ICD9: V79.8, ICD10: Z13.39 - ANXIETY SCREENING 8. Chronic bilateral low back pain without sciatica - ICD9: 724.2, 338.29, ICD10: M54.50, G89.29 - [facility] 9. Postural kyphosis of thoracic region - ICD9: 737.10, ICD10: M40.04 - [facility] AVS instructions reviewed with patient. Please refer to AVS instructions for additional plan and education. Please follow up with PCP, newly established PCP, or Virtual Primary Team as directed. Yairel Carter APRN.[address], [address] [place] [address] P: F: Items addressed in this encounter: Virtual Visit Pre Check In Attempted to reach patient no answer OLIVER Morales MA April 20, 2024 8:52 AM 8:52 AM documented in this encounter [facility] 04-20-2024 Note HNO ID: [id number] Author: DIANA MORALES MA Service: ? Author Type: Retirement Actuary Type: Progress Notes Filed: 04/20/2024 11:10 Note Text: Items addressed in this encounter: Virtual Visit Pre Check In Attempted to reach patient no answer OLIVER Morales MA April 20, 2024 8:52 AM 8:52 AM [facility] 03-30-2024 Telephone encounter Note Patient has been scheduled for their MSK US exam on 05/17/24 : 12:45 PM at [facility]. [facility] 03-30-2024 Miscellaneous Notes Patient has been scheduled for their MSK US exam on 05/17/24 : 12:45 PM at [facility]. Visit Type: ANY MSK Visit Length: 45, 50 OR 60 MINUTES Order Name/Protocol: US FOOT RT; GUTIERREZ'S NEUROMA-EVAL RT 2ND+3RD IMS/MTPJ'S FOR NEUROMA VS. PLANTAR PLATE INJURY Preferred Provider: N/A Comment: Please ask if the patient has ever had any prior surgery to their RT second+third toes. If so, upgrade the visit type to an MSK1 and notate the surgical hx in the Appointment Note. Location: Depending on the surgical hx, this patient can have this exam performed at any of our three locations. Slot held: N/A documented in this encounter [facility] 03-30-2024 Telephone encounter Note Visit Type: ANY MSK Visit Length: 45, 50 OR 60 MINUTES Order Name/Protocol: US FOOT RT; GUTIERREZ'S NEUROMA-EVAL RT 2ND+3RD IMS/MTPJ'S FOR NEUROMA VS. PLANTAR PLATE INJURY Preferred Provider: N/A Comment: Please ask if the patient has ever had any prior surgery to their RT second+third toes. If so, upgrade the visit type to an MSK1 and notate the surgical hx in the Appointment Note. Location: Depending on the surgical hx, this patient can have this exam performed at any of our three locations. Slot held: N/A [facility] 03-30-2024 Note HNO ID: [id number] Author: CRYSTAL SPARROW LPN Service: ? Author Type: LICENSED NURSE Type: Progress Notes Filed: 03/30/2024 09:51 Note Text: Per Dr. Rodríguez, Edvin was provided with Powerstep gel inserts, size 11, and instructed/educated in its application, wear, and care. All questions were answered, and patient was able to demonstrate competence with the necessary skills to utilize the above equipment. Crystla Sparrow LPN [facility] 03-30-2024 History of Presen t illness Narrative Per Dr. Rodríguez, Edvin was provided with Powerstep gel inserts, size 11, and instructed/educated in its application, wear, and care. All questions were answered, and patient was able to demonstrate competence with the necessary skills to utilize the above equipment. Crystal Sparrow LPN Images from the original note were not included. Initial Podiatric Office Visit: Chief Complaint: This 44 year old male who presents with chief complaint:right foot pain HPI Patient presents to clinic for evaluation of right foot. Patient complains of pain and burning of the right foot, primarily along the 3rd toe/mtpj States the pain has been present since september. States that he plays soccer and he states that he was wearing a shoe one day that his toe got caught on the stitching and he felt a sudden pop in the 3rd toe He states since this happened, his toe has been swollen and there is pain. 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 Patient does take over the counter nsaids which does help. As long as he is not active, the pain is not as bad. PAIN EVALUATION 03/29/2024 1145 Pain Level: 7 Pain Location: Toe Description: Burning Duration Amount of Time: 6 Duration Units: Months Frequency: Continuous Intervention/Comfort measure: Medication;Reposition;Relaxation ;Cold;Distractions;Emotional Support/Reassurance;Exercise;Hea t;Massage;Pillow support;Support surface No results found for: HBA1C PCP: No primary care provider on file. No past medical history on file. Current Outpatient Medications Medication Sig ibuprofen (MOTRIN) 600 mg tablet Take 600 mg by mouth every 6 hours as needed for pain. naproxen sodium (ALEVE ORAL) Take by mouth. IHCELIUT-WHHNHDNSY-IQCWZCQX 3.5 MG/ML-10,000 UNIT/ML-0.1% EYE DROPS Use 1 Drop in both eyes three times daily. (Patient not taking: Reported on 03/01/2024) No current facility-administered medications for this visit. ALLERGIES No Known Allergies PAST SURGICAL HISTORY Procedure Laterality Date PAST SURGICAL HISTORY OF Left 2008 LT thumb partial amputaition PAST SURGICAL HISTORY OF 96 Kyphosis repair RPR 1ST INGUN HRNA AGE 4 YRS/> REDUCIBLE 12/2012 Hernia repair, inguinal, left FAMILY HISTORY Problem Relation Age of Onset No Ocular Disease No Family History Social History Tobacco Use Smoking status: Former Current packs/day: 0.00 Types: Cigarettes Quit date: 09/2023 Years since quittin.5 Smokeless tobacco: Never Substance Use Topics Alcohol use: No Drug use: No REVIEW OF SYSTEMS GENERAL: Negative for Malaise, significant weight loss, fever RESPIRATORY: Negative for cough, wheezing and shortness of breath CARDIOVASCULAR: Negative for chest pain, leg swelling and palpitations GI: Negative for abdominal discomfort, blood in stools or black stools and change in bowel habits : Negative for dysuria, frequency and incontinence MUSCULOSKELETAL: Negative for joint pain or swelling, back pain, and muscle pain. SKIN: Negative for lesions, rash, and itching. HEMATOLOGY/LYMPHOLOGY Negative for prolonged bleeding, bruising easily, and swollen nodes. ENDOCRINE: Negative for cold or heat intolerance, polyuria, polydipsia and goiter. NEURO: negative Physical Exam: Constitutional: Pt is a well developed 44 year old male who is alert, oriented and cooperative Eyes: Following during examination. No redness or drainage. Respiratory: RR normal and nonlabored. Even breathing. No evidence of distress or shortness of breath. Psychology: Patient is engaged during conversation. Normal affect and mood. Does not appear depressed or anxious during encounter. Vascular: Dorsalis pedis and posterior tibial pulses palpable as b/l Capillary Fill time < 5 seconds to digits 1-5 b/l Skin temperature warm to warm proximal to distal b/l Hair growth present to digits Neurological: intact light touch/epicritic sensation intact protective sensation no significant neurological deficits Dermatological: Nails 1-5 b/l appear normal. Webspaces clean and dry 1-4 b/l. Skin appears well hydrated and supple. good color, texture, turgor. No open lesions present. No callosities present. Musculoskeletal/Orthopaedic: Patient has pain to palpation of right 2nd and 3rd interspace Foot type is slightly pronated structurally AJ ROM is full with knee extended and flexed 1st MPJ is full when loaded and no pain or crepitus are noted with ROM. MTJ, STJ are full and free of pain and crepitus. +5/5 muscle strength dorsiflexion, plantarflexion, inversion, eversion b/l Radiographs: 3 views right foot reviewed March 30, 2024: I have personally reviewed and interpreted these XR myself: no acute fracture ASSESSMENT: (D36.10) Neuroma (primary encounter diagnosis) (M77.8) Capsulitis of foot, right PLAN: 1. History and physical examination performed. 2. XR reviewed with patient and interpreted today 3. Discussed pain in right foot. Pain is spread across the right 2nd interspace, right 3rd interspace and right 3rd mtpj. Differential include neuroma vs capsulitis vs plantar plate attenuation. 4. Will provide oral steroid. 5. Will provide patient with gel insert 6. Recommend ultrasound to evaluate for neuroma vs plantar plate attenutation. If pain persists and neuroma is confirmed, could consider steroid injection Luz Rodríguez DPM Podiatry [address] [facility] [address] Dept: [phone] Dept AMB ROOMING INTAKE FLOWSHEET DATA Pain Pain Level: 7 Pain Location: Toe Description: Burning Duration Amount of Time: 6 Duration Units: Months Frequency: Continuous Intervention/Comfort measure: Medication, Reposition, Relaxation, Cold, Distractions, Emotional Support/Reassurance, Exercise, Heat, Massage, Pillow support, Support surface Patient presents with: Right Foot - New, Swelling, Pain Crystal Sparrow LPN documented in this encounter [facility] 03-30-2024 Instructions Luz Rodríguez - 03/30/2024 9:38 AM EDT Powerstep Original Full length. Can purchase at [facility] [employer] and boots,shoes and more here in [employer], [employer] in [place] or [place]. Also can find in [place] in [facility]. Powersteps can also be purchased online, starting around $45.00 If you have a metatarsal or dancer pad for your feet apply the pad directly to the insole so you can interchange between your shoes. Find a shoe with a removable insole and take this out and replace with your powerstep insole. Always bring powersteps with you when shopping for shoes so that you can make sure that everything fits well together documented in this encounter [facility] 03-30-2024 Note HNO ID: [id number] Author: LUZ RODRÍGUEZ, ? Service: ? Author Type: Physician Type: Progress Notes Filed: 03/30/2024 09:51 Note Text: Initial Podiatric Office Visit: Chief Complaint: This 44 year old male who presents with chief complaint:right foot pain HPI Patient presents to clinic for evaluation of right foot. Patient complains of pain and burning of the right foot, primarily along the 3rd toe/mtpj States the pain has been present since september. States that he plays soccer and he states that he was wearing a shoe one day that his toe got caught on the stitching and he felt a sudden pop in the 3rd toe He states since this happened, his toe has been swollen and there is pain. 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 Patient does take over the counter nsaids which does help. As long as he is not active, the pain is not as bad. PAIN EVALUATION 03/29/2024 1145 Pain Level: 7 Pain Location: Toe Description: Burning Duration Amount of Time: 6 Duration Units: Months Frequency: Continuous Intervention/Comfort measure: Medication;Reposition;Relaxation ;Cold;Distractions;Emotional Support/Reassurance;Exercise;Hea t;Massage;Pillow support;Support surface No results found for: HBA1C PCP: No primary care provider on file. No past medical history on file. Current Outpatient Medications Medication Sig ibuprofen (MOTRIN) 600 mg tablet Take 600 mg by mouth every 6 hours as needed for pain. naproxen sodium (ALEVE ORAL) Take by mouth. KUJYTZKG-ANOOIUASP-BHOBNNRD 3.5 MG/ML-10,000 UNIT/ML-0.1% EYE DROPS Use 1 Drop in both eyes three times daily. (Patient not taking: Reported on 03/01/2024) No current facility-administered medications for this visit. ALLERGIES No Known Allergies PAST SURGICAL HISTORY Procedure Laterality Date PAST SURGICAL HISTORY OF Left 2008 LT thumb partial amputaition PAST SURGICAL HISTORY OF 96 Kyphosis repair RPR 1ST INGUN HRNA AGE 4 YRS/> REDUCIBLE 12/2012 Hernia repair, inguinal, left FAMILY HISTORY Problem Relation Age of Onset No Ocular Disease No Family History Social History Tobacco Use Smoking status: Former Current packs/day: 0.00 Types: Cigarettes Quit date: 09/2023 Years since quittin.5 Smokeless tobacco: Never Substance Use Topics Alcohol use: No Drug use: No REVIEW OF SYSTEMS GENERAL: Negative for Malaise, significant weight loss, fever RESPIRATORY: Negative for cough, wheezing and shortness of breath CARDIOVASCULAR: Negative for chest pain, leg swelling and palpitations GI: Negative for abdominal discomfort, blood in stools or black stools and change in bowel habits : Negative for dysuria, frequency and incontinence MUSCULOSKELETAL: Negative for joint pain or swelling, back pain, and muscle pain. SKIN: Negative for lesions, rash, and itching. HEMATOLOGY/LYMPHOLOGY Negative for prolonged bleeding, bruising easily, and swollen nodes. ENDOCRINE: Negative for cold or heat intolerance, polyuria, polydipsia and goiter. NEURO: negative Physical Exam: Constitutional: Pt is a well developed 44 year old male who is alert, oriented and cooperative Eyes: Following during examination. No redness or drainage. Respiratory: RR normal and nonlabored. Even breathing. No evidence of distress or shortness of breath. Psychology: Patient is engaged during conversation. Normal affect and mood. Does not appear depressed or anxious during encounter. Vascular: Dorsalis pedis and posterior tibial pulses palpable as b/l Capillary Fill time < 5 seconds to digits 1-5 b/l Skin temperature warm to warm proximal to distal b/l Hair growth present to digits Neurological: intact light touch/epicritic sensation intact protective sensation no significant neurological deficits Dermatological: Nails 1-5 b/l appear normal. Webspaces clean and dry 1-4 b/l. Skin appears well hydrated and supple. good color, texture, turgor. No open lesions present. No callosities present. Musculoskeletal/Orthopaedic: Patient has pain to palpation of right 2nd and 3rd interspace Foot type is slightly pronated structurally AJ ROM is full with knee extended and flexed 1st MPJ is full when loaded and no pain or crepitus are noted with ROM. MTJ, STJ are full and free of pain and crepitus. +5/5 muscle strength dorsiflexion, plantarflexion, inversion, eversion b/l Radiographs: 3 views right foot reviewed March 30, 2024: I have personally reviewed and interpreted these XR myself: no acute fracture ASSESSMENT: (D36.10) Neuroma (primary encounter diagnosis) (M77.8) Capsulitis of foot, right PLAN: 1. History and physical examination performed. 2. XR reviewed with patient and interpreted today 3. Discussed pain in right foot. Pain is spread across the right 2nd interspace, right 3rd interspace and righ (more content not included)... [facility] 03-30-2024 Note HNO ID: [id number] Author: CRYSTAL SPARROW LPN Service: ? Author Type: LICENSED NURSE Type: Progress Notes Filed: 03/30/2024 09:51 Note Text: AMB ROOMING INTAKE FLOWSHEET DATA Pain Pain Level: 7 Pain Location: Toe Description: Burning Duration Amount of Time: 6 Duration Units: Months Frequency: Continuous Intervention/Comfort measure: Medication, Reposition, Relaxation, Cold, Distractions, Emotional Support/Reassurance, Exercise, Heat, Massage, Pillow support, Support surface Patient presents with: Right Foot - New, Swelling, Pain Crystal Sparrow LPN [facility] 03-01-2024 History of Presen t illness Narrative Radiology Service Progress Note PATIENT NAME: Edvin Trammell DATE OF SERVICE: March 01, 2024 TIME: 11:52 AM PATIENT IDENTITY VERIFICATION COMPLETED USING TWO (2) IDENTIFIERS: Name and Date of confirmed by patient verbally. FALL SCREENING: Has the patient had 2 falls in the last year or 1 fall with injury or currently using an Ambulatory Assistive Device (Walker, Cane, Wheelchair, Crutches, etc.)? No PATIENT GENDER DATA: Male PATIENT RELEVANT IMPLANT DATA REVIEWED: Yes PATIENT PRESENTS WITH AN IMPLANTABLE OR ATTACHED FIRST AID INSTRUCTOR: No RADIOLOGY DEPARTMENT: General X-ray: Exam(s) Completed: Lower Extremity X-Ray(s): Ankle, Right and Wt. Bearing and Foot, Right and Wt. Bearing PERIPHERAL IV DATA: Not applicable SIGNED BY: RT Hakeem(R) March 01, 2024 11:52 AM documented in this encounter [facility] 03-01-2024 History of Presen t illness Narrative Patient presents with: Trauma: Right ankle injury playing soccer x 3 days HPI: Right ankle pain: Duration: another players foot slid into his medial right foot while his cleat was planted 3 days during soccer. He had been hit on the lateral right foot with a cleat in 2022 and has pain since. Location: acutely around the medial and lateral ankle with some proximal anterior foot pain. Chronically at the proximal 5th metatarsal and 3rd metatarsal head. Character: sharp Radiation: No. Aggravating: moving ankle Relieving: ice Pain relievers: ibuprofen, aleve Associated: swelling, bruising Pertinent negatives: Denies numbness MEDICATIONS: UAGWRTLB-OSHENETEP-AZKDAXYR 3.5 MG/ML-10,000 UNIT/ML-0.1% EYE DROPS Use 1 Drop in both eyes three times daily. (Patient not taking: Reported on 03/01/2024) ALLERGIES: ALLERGIES No Known Allergies VITALS: BP 120/70 Pulse 67 Temp 36.3 C (97.4 F) Resp 20 Wt 94.3 kg (207 lb 14.3 oz) SpO2 98% BMI 31.61 kg/m PHYSICAL EXAM: GEN: pleasant, alert, no acute distress ANKLE: right . Swelling and ecchymosis present medial ankle. Mild edema dorsal 3rd metatarsal head compared to the left. Range of motion: inversion - non-painful, eversion - non-painful, anterior drawer- non-painful. painful to bear weight. Limping gait. Palpation: Medial malleolus non-painful, lateral malleolus non-painful, Tender anterior talotibial joint. Dorsal proximal midfoot - non-painful, proximal 5th metatarsal and distal 3rd metatarsal painful, posterior calcaneus non-painful ASSESSMENT/PLAN: 1. Acute right ankle pain - ICD9: 719.47, 338.19, ICD10: M25.571 (primary diagnosis) 2. Chronic foot pain, right - ICD9: 729.5, 338.29, ICD10: M79.671, G89.29 - XR FOOT GENERAL 3V AP/LAT/OBL RIGHT - XR ANKLE GENERAL 3V AP/LAT/OBL RIGHT No acute fracture. Treat with rest, ice, compression, elevation, and as needed analgesia. Advance activity as tolerated. Plans to follow up with podiatry for persistent lateral and 3rd MCP area pain. Luis Munguia MD documented in this encounter [facility] 11-07-2022 History of Presen t illness Narrative 1. Squamous blepharitis of upper and lower eyelids of both eyes Educated pt on condition Medications to Start Taking [id number] 3.5 MG/ML-10,000 UNIT/ML-0.1% EYE DROPS Use 1 Drop in both eyes three times daily. Use warm compresses and lid scrubs daily NO eye rubbing Follow-up in 2 weeks or sooner as needed Marsha Prince, KAYLA November 07, 2022 9:20 AM documented in this encounter [facility] 11-07-2022 Instructions Marsha Prince, OD - 11/07/2022 8:48 AM EDT Use warm compresses daily Use Systane or Ocusoft lid wipes daily (alternative is diluted baby shampoo) daily Use Maxitrol ointment three times daily in both eyes for 1 weeks documented in this encounter [facility] 10-27-2022 History of Presen t illness Narrative CC: Patient presents with: Eye Problem: Bilateral eyes, itchy, red, swollen x 2 weeks started when burning wood HPI Edvin Trammell is a 42 year old male who presents today for above Eye symptoms include rash/irritation on eyelids along lash line, itchy, discomfort Denies: photophobia, severe foreign body sensation , eye pain, visual changes, severe headache with nausea, foreign body exposure to eye, and drainage. No recent contacts with anyone with pink eye or any recent URI's. Contact lens: No The remainder of the review of systems is negative. PMH, Medications, labs, allergies, and recent past visits with pcp reviewed. Information collected from clinical staff is reviewed. PHYSICAL EXAM BP 110/72 Pulse 63 Temp 36.6 C (97.9 F) Resp 16 Wt 94.3 kg (208 lb) SpO2 98% BMI 31.63 kg/m General Appearance: well appearing, in no acute distress, alert Eyes: Bilateral eyes: Conjunctivae: normal, Sclera: normal, Eyelids: faintly erythematous scaling and small bumps along upper lash line on eyelids bilaterally , Corneas: normal, Drainage: normal ASSESSMENT/PLAN: 1. Blepharitis of upper eyelids of both eyes, unspecified type - ICD9: 373.00, ICD10: H01.001, H01.004 No symptoms or exam findings concerning for conjunctivitis or cellulitis Start treatment with Erythromycin ointment x 1 week Follow-up with manager shell if symptoms persist or worsen Prescription instructions reviewed with patient as applicable. Potential red flag symptoms discussed with the patient. Reviewed appropriate action plan to take if red flag symptoms occur. Patient agreeable to treatment plan. Rekha Campos APRN.CNP documented in this encounter [facility] 09-04-2015 History of Past i llness Narrative Problem Noted Date Resolved Date Myofascial pain 09/04/2015 07/19/2016 Unilateral groin pain 07/31/2015 07/19/2016 documented as of this encounter (statuses as of 10/27/2022) [facility]-2016 History of Past illness Narrative* Problem Noted Date Resolved Date Myofascial pain 09/04/2015 07/19/2016 Unilateral groin pain 07/31/2015 07/19/2016 documented as of this encounter (statuses as of 11/07/2022) [facility] note* Diagnosis Blepharitis of upper eyelids of both eyes, unspecified type- Primary [facility] Diagnosis Squamous blepharitis of upper and lower eyelids of both eyes- Primary [facility]* Diagnosis Acute right ankle pain- Primary Chronic foot pain, right Acute right ankle pain Chronic foot pain, right [facility]* Diagnosis Acute right ankle pain Chronic foot pain, right [facility]* Diagnosis Neuroma- Primary Other benign neoplasm of connective and other soft tissue of unspecified site Capsulitis of foot, right [facility]* Diagnosis Encounter to establish care- Primary Other reasons for seeking consultation Toe pain, chronic, right Screening for HIV (human immunodeficiency virus) Special screening examination for other specified viral diseases Special screening examination for viral disease Special screening examination for unspecified viral disease Screening for colon cancer Special screening for malignant neoplasms, colon Screening for depression Encounter for screening examination for other mental health and behavioral disorders Chronic bilateral low back pain without sciatica Postural kyphosis of thoracic region Kyphosis (acquired) (postural) documented [facility]* Diagnosis Neuroma- Primary Other benign neoplasm of connective and other soft tissue of unspecified site Capsulitis of foot, right Right foot pain Pain in limb Repetitive stress injury Unspecified site of sprain and strain Right foot pain Pain in limb Repetitive stress injury Unspecified site of sprain and strain [facility] Diagnosis Right foot pain Pain in limb Repetitive stress injury Unspecified site of sprain and strain [facility]* Diagnosis Neuroma Other benign neoplasm of connective and other soft tissue of unspecified site Capsulitis of foot, right [facility] Diagnosis Repetitive stress injury- Primary Unspecified site of sprain and strain [facility]* Diagnosis Repetitive stress injury Unspecified site of sprain and strain [facility]* Diagnosis Capsulitis of foot, right- Primary Plantar plate injury, right, sequela [facility] Diagnosis Encounter for medical examination to establish care- Primary Anxiety and depression Dysthymic disorder Marijuana abuse Cannabis abuse, unspecified [facility] Diagnosis Acute cough- Primary URI, acute Acute upper respiratory infections of unspecified site Acute otitis media, left Unspecified otitis media Acute cough [facility] Diagnosis Acute cough [facility]* Diagnosis Spermatocele- Primary Anxiety and depression Dysthymic disorder Kyphosis, unspecified kyphosis type, unspecified spinal region Encounter to establish care Other reasons for seeking consultation History of vasectomy Vasectomy status History of hernia repair Other postprocedural status Family history of malignant neoplasm of skin documented in this encounter [facility] for referral (narrative)* Diagnostic Procedure Only (Urgent) - Closed Specialty Diagnoses / Procedures Referred By Contac t Referred To Contact XR IMAGING Diagnoses Acute right ankle pain Chronic foot pain, right Procedures XR ANKLE GENERAL 3V AP/LAT/OBL RIGHT RADEX ANKLE COMPLETE MINIMUM 3 VIEWS Luis Munguia MD [address] [place] [address] [place] [address] Referral ID Status Reason Start Date Expiration Date V isits Requested Visits Authorized [id number] Closed Auto-Generate d Referral 03/01/2024 03/31/2025 1 1 * Diagnostic Procedure Only (Urgent) - Closed Specialty Diagnoses / Procedures Referred By Contac t Referred To Contact XR IMAGING Diagnoses Acute right ankle pain Chronic foot pain, right Procedures XR FOOT GENERAL 3V AP/LAT/OBL RIGHT RADEX FOOT COMPLETE MINIMUM 3 VIEWS Luis Munguia MD [address] [place] [address] [place] [address] Referral ID Status Reason Start Date Expiration Date V isits Requested Visits Authorized [id number] Closed Auto-Generate d Referral 03/01/2024 03/31/[address] [facility] for referral (narrative)* Diagnostic Procedure Only (Urgent) - Closed Specialty Diagnoses / Procedures Referred By Contac t Referred To Contact XR IMAGING Diagnoses Acute right ankle pain Chronic foot pain, right Procedures XR ANKLE GENERAL 3V AP/LAT/OBL RIGHT RADEX ANKLE COMPLETE MINIMUM 3 VIEWS Luis Munguia MD [address] [place] [address] [place] [address] Referral ID Status Reason Start Date Expiration Date V isits Requested Visits Authorized [id number] Closed Auto-Generate d Referral 03/01/2024 03/31/2025 1 1 * Diagnostic Procedure Only (Urgent) - Closed Specialty Diagnoses / Procedures Referred By Contac t Referred To Contact XR IMAGING Diagnoses Acute right ankle pain Chronic foot pain, right Procedures XR FOOT GENERAL 3V AP/LAT/OBL RIGHT RADEX FOOT COMPLETE MINIMUM 3 VIEWS Luis Munguia MD [address] [place] [address] [place] [address] Referral ID Status Reason Start Date Expiration Date V isits Requested Visits Authorized [id number] Closed Auto-Generate d Referral 03/01/2024 03/31/[address] [facility] for referral (narrative)* Diagnostic Procedure Only (Routine) - Authorized Specialty Diagnoses / Procedures Referred By Contac t Referred To Contact US IMAGING Diagnoses Neuroma Capsulitis of foot, right Procedures US FOOT RIGHT US COMPL JOINT R-T W/IMAGE DOCUMENTATION US LMTD JOINT/OTH NONVASC XTR STRUX R-T W/IMG Luz Rodríguez [address] [place] [address] [place] [address] Referral ID Status Reason Start Date Expiration Date Visits Requested Visits Authorized [id number] Authorized Auto-Generat ed Referral 03/30/2024 04/29/[address] [facility] for referral (narrative)* Diagnostic Procedure Only (Urgent) - Closed Specialty Diagnoses / Procedures Referred By Contac t Referred To Contact XR IMAGING Diagnoses Right foot pain Repetitive stress injury Procedures XR FOOT GENERAL 3V AP/LAT/OBL RIGHT RADEX FOOT COMPLETE MINIMUM 3 VIEWS Luz Rodríguez [address] [place] [address] [place] [address] Referral ID Status Reason Start Date Expiration Date V isits Requested Visits Authorized [id number] Closed Auto-Generate d Referral 05/04/2024 06/03/[address] [facility] for referral (narrative)* Diagnostic Procedure Only (Urgent) - Closed Specialty Diagnoses / Procedures Referred By Contac t Referred To Contact XR IMAGING Diagnoses Right foot pain Repetitive stress injury Procedures XR FOOT GENERAL 3V AP/LAT/OBL RIGHT RADEX FOOT COMPLETE MINIMUM 3 VIEWS Luz Rodríguez [address] [place] [address] [place] [address] Referral ID Status Reason Start Date Expiration Date V isits Requested Visits Authorized [id number] Closed Auto-Generate d Referral 05/04/2024 06/03/2025 1 1 [facility] for referral (narrative)* Diagnostic Procedure Only (Routine) - Closed Specialty Diagnoses / Procedures Referred By Contac t Referred To Contact US IMAGING Diagnoses Neuroma Capsulitis of foot, right Procedures US FOOT RIGHT US COMPL JOINT R-T W/IMAGE DOCUMENTATION US LMTD JOINT/OTH NONVASC XTR STRUX R-T W/IMG Luz Rodríguez [address] [place] [address] [place] [address] Referral ID Status Reason Start Date Expiration Date V isits Requested Visits Authorized [id number] Closed Auto-Generate d Referral 03/30/2024 04/29/2025 1 1 [facility] for referral (narrative)* Diagnostic Procedure Only (Routine) - New Request Specialty Diagnoses / Procedures Referred By Contac t Referred To Contact XR IMAGING Diagnoses Repetitive stress injury Procedures XR FOOT GENERAL 3V AP/LAT/OBL RIGHT RADEX FOOT COMPLETE MINIMUM 3 VIEWS Luz Rodríguez [address] [address] [place] [address] Referral ID Status Reason Start Date Expiration Date Visits Requested Visits Authorized [id number] New Request Auto-Generat ed Referral 06/19/[address] [facility] for visit Narrative* Diagnostic Procedure Only (Urgent) - Closed Specialty Diagnoses / Procedures Referred By Contac t Referred To Contact XR IMAGING Diagnoses Acute right ankle pain Chronic foot pain, right Procedures XR ANKLE GENERAL 3V AP/LAT/OBL RIGHT RADEX ANKLE COMPLETE MINIMUM 3 VIEWS Luis Munguia MD [address] [place] [address] [place] [address] Referral ID Status Reason Start Date Expiration Date V isits Requested Visits Authorized [id number] Closed Auto-Generate d Referral 03/01/2024 03/31/[address] [facility] for visit Narrative* Diagnostic Procedure Only (Urgent) - Closed Specialty Diagnoses / Procedures Referred By Contac t Referred To Contact XR IMAGING Diagnoses Right foot pain Repetitive stress injury Procedures XR FOOT GENERAL 3V AP/LAT/OBL RIGHT RADEX FOOT COMPLETE MINIMUM 3 VIEWS Luz Rodríguez [address] [place] [address] [place] [address] Referral ID Status Reason Start Date Expiration Date V isits Requested Visits Authorized [id number] Closed Auto-Generate d Referral 05/04/2024 06/03/[address] [facility] for visit Narrative* Diagnostic Procedure Only (Routine) - Closed Specialty Diagnoses / Procedures Referred By Contac t Referred To Contact US IMAGING Diagnoses Neuroma Capsulitis of foot, right Procedures US FOOT RIGHT US COMPL JOINT R-T W/IMAGE DOCUMENTATION US LMTD JOINT/OTH NONVASC XTR STRUX R-T W/IMG Luz Rodríguez [address] [place] [address] [place] [address] Referral ID Status Reason Start Date Expiration Date V isits Requested Visits Authorized [id number] Closed Auto-Generate d Referral 03/30/2024 04/29/2025 1 1 [facility] Diagnostic Procedure Only (Routine) - Closed Specialty Diagnoses / Procedures Referred By Contac t Referred To Contact XR IMAGING Diagnoses Repetitive stress injury Procedures XR FOOT GENERAL 3V AP/LAT/OBL RIGHT RADEX FOOT COMPLETE MINIMUM 3 VIEWS Luz Rodríguez [address] [address] [place] [address] Referral ID Status Reason Start Date Expiration Date V isits Requested Visits Authorized [id number] Closed Auto-Generate d Referral 05/20/2024 06/19/2025 1 1 [facility] Summary Purpose Family History No Family History Records FoundNo Family History Records FoundNo Family History Records Found Advance Directives No Advanced Directives Records FoundNo Advanced Directives Records FoundNo Advanced Directives Records Found Reason for Referral Specialty Diagnoses / Procedures Referred By Contac t Referred To Contact [facility] Diagnoses Chronic bilateral low back pain without sciatica Postural kyphosis of thoracic region Procedures [facility]/OUTPATIENT [facility] 60 MINUTES Yariel Carter, REGISTERED RADIOLOGIC TECHNOLOGIST.SIDE STITCHING MACHINE OPERATOR [address] [place] [address] Referral ID Status Reason Start Date Expiration Date Visits Requested Visits Authorized [id number] Authorized PCP Requested Referral 04/20/2025 1 1 Specialty Diagnoses / Procedures Referred By Contac t Referred To Contact [facility] Diagnoses Screening for colon cancer Procedures COLONOSCOPY SCREENING COLONOSCOPY FLX DX W/COLLJ SPEC WHEN PFRMD Yariel Carter, REGISTERED RADIOLOGIC TECHNOLOGIST.SIDE STITCHING MACHINE OPERATOR [address] [place] [address] [facility] [address] [place] [address] Referral ID Status Reason Start Date Expiration Date Visits Requested Visits Authorized [id number] Authorized Auto-Generat ed Referral 4 04/20/2025 1 1 Specialty Diagnoses / Procedures Referred By Contac t Referred To Contact Diagnoses Encounter to establish care Procedures ESTABLISH WITH PRIMARY CARE NEW PATIENT OFFICE/OUTPATIENT [facility] 60 MINUTES Yariel Carter, REGISTERED RADIOLOGIC TECHNOLOGIST.SIDE STITCHING MACHINE OPERATOR [address] [place] [address] Referral ID Status Reason Start Date Expiration Date Visits Requested Visits Authorized [id number] Authorized PCP Requested Referral 4 04/20/2025 1 1 Additional Source Comments Source Comments (unrecognize d section and content) In the event this informatio n is protected by the Federal Confidentiality of Alcohol and Drug Abuse Patient Records regulations: The Federal rules restrict any use of the information to criminally investigate or prosecute any alcohol or drug abuse patient.[facility] event this information is protected by the Federal Confidentiality of Alcohol and Drug Abuse Patient Records regulations: The Federal rules restrict any use of the information to criminally investigate or prosecute any alcohol or drug abuse patient.[facility] the event this information is protected by the Federal Confidentiality of Alcohol and Drug Abuse Patient Records regulations: The Federal rules restrict any use of the information to criminally investigate or prosecute any alcohol or drug abuse patient.[facility] the event this information is protected by the Federal Confidentiality of Alcohol and Drug Abuse Patient Records regulations: The Federal rules restrict any use of the information to criminally investigate or prosecute any alcohol or drug abuse patient.[facility] the event this information is protected by the Federal Confidentiality of Alcohol and Drug Abuse Patient Records regulations: The Federal rules restrict any use of the information to criminally investigate or prosecute any alcohol or drug abuse patient.[facility] the event this information is protected by the Federal Confidentiality of Alcohol and Drug Abuse Patient Records regulations: The Federal rules restrict any use of the information to criminally investigate or prosecute any alcohol or drug abuse patient.[facility] the event this information is protected by the Federal Confidentiality of Alcohol and Drug Abuse Patient Records regulations: The Federal rules restrict any use of the information to criminally investigate or prosecute any alcohol or drug abuse patient.[facility] the event this information is protected by the Federal Confidentiality of Alcohol and Drug Abuse Patient Records regulations: The Federal rules restrict any use of the information to criminally investigate or prosecute any alcohol or drug abuse patient.[facility] the event this information is protected by the Federal Confidentiality of Alcohol and Drug Abuse Patient Records regulations: The Federal rules restrict any use of the information to criminally investigate or prosecute any alcohol or drug abuse patient.[facility] the event this information is protected by the Federal Confidentiality of Alcohol and Drug Abuse Patient Records regulations: The Federal rules restrict any use of the information to criminally investigate or prosecute any alcohol or drug abuse patient.[facility] the event this information is protected by the Federal Confidentiality of Alcohol and Drug Abuse Patient Records regulations: The Federal rules restrict any use of the information to criminally investigate or prosecute any alcohol or drug abuse patient.[facility] the event this information is protected by the Federal Confidentiality of Alcohol and Drug Abuse Patient Records regulations: The Federal rules restrict any use of the information to criminally investigate or prosecute any alcohol or drug abuse patient.[facility] the event this information is protected by the Federal Confidentiality of Alcohol and Drug Abuse Patient Records regulations: The Federal rules restrict any use of the information to criminally investigate or prosecute any alcohol or drug abuse patient.[facility] the event this information is protected by the Federal Confidentiality of Alcohol and Drug Abuse Patient Records regulations: The Federal rules restrict any use of the information to criminally investigate or prosecute any alcohol or drug abuse patient.[facility] the event this information is protected by the Federal Confidentiality of Alcohol and Drug Abuse Patient Records regulations: The Federal rules restrict any use of the information to criminally investigate or prosecute any alcohol or drug abuse patient.[facility] the event this information is protected by the Federal Confidentiality of Alcohol and Drug Abuse Patient Records regulations: The Federal rules restrict any use of the information to criminally investigate or prosecute any alcohol or drug abuse patient.[facility] the event this information is protected by the Federal Confidentiality of Alcohol and Drug Abuse Patient Records regulations: The Federal rules restrict any use of the information to criminally investigate or prosecute any alcohol or drug abuse patient.[facility] the event this information is protected by the Federal Confidentiality of Alcohol and Drug Abuse Patient Records regulations: The Federal rules restrict any use of the information to criminally investigate or prosecute any alcohol or drug abuse patient.[facility] the event this information is protected by the Federal Confidentiality of Alcohol and Drug Abuse Patient Records regulations: The Federal rules restrict any use of the information to criminally investigate or prosecute any alcohol or drug abuse patient.[facility] the event this information is protected by the Federal Confidentiality of Alcohol and Drug Abuse Patient Records regulations: The Federal rules restrict any use of the information to criminally investigate or prosecute any alcohol or drug abuse patient.[facility] the event this information is protected by the Federal Confidentiality of Alcohol and Drug Abuse Patient Records regulations: The Federal rules restrict any use of the information to criminally investigate or prosecute any alcohol or drug abuse patient.[facility] the event this information is protected by the Federal Confidentiality of Alcohol and Drug Abuse Patient Records regulations: The Federal rules restrict any use of the information to criminally investigate or prosecute any alcohol or drug abuse patient.[facility] the event this information is protected by the Federal Confidentiality of Alcohol and Drug Abuse Patient Records regulations: The Federal rules restrict any use of the information to criminally investigate or prosecute any alcohol or drug abuse patient.[facility] the event this information is protected by the Federal Confidentiality of Alcohol and Drug Abuse Patient Records regulations: The Federal rules restrict any use of the information to criminally investigate or prosecute any alcohol or drug abuse patient.[facility] Reason for Visit (unrecogniz ed section and content) Reason Comments Eye Problem Bilateral eyes, itch y, red, swollen x 2 weeks started when burning wood Reason Comments Eye Itching Both Eyes Reason Comments Trauma Right ankle injury p laying soccer x 3 days Reason Comments New Swelling Pain Reason Comments Appointment Reason Comments Multiple Concerns Reason Comments Established Patient Pain Reason Comments Results Reason Comments Established Patient Pain Follow Up Reason Comments Establish Care Specialty Diagnoses / Procedures Referred By Kvng villanueva Referred To Contact [facility] Diagnoses Encounter to establish care Procedures ESTABLISH WITH PRIMARY CARE NEW PATIENT OFFICE/OUTPATIENT [facility] 60 MINUTES Yariel Carter, REGISTERED RADIOLOGIC TECHNOLOGIST.SIDE STITCHING MACHINE OPERATOR [address] [facility] [address] [place] [address] [address] Referral ID Status Reason Start Date Expiration Date V isits Requested Visits Authorized [id number] Closed PCP Requested Referral 04/20/2024 04/20/2025 1 1 Reason Comments Cough Cough, ST, MIX, conge stion, fever x 6-7 days Reason Comments Lump On testicle. X 5-6 m [facility] Skin Check On abdomen tear on right foot X 2 years. Saw foot doctor in the past. Painful. New Patient Establish Care (unrecognized sect ion and content) No Status Records FoundNo Status Records FoundNo Status Records Found INFORMATION SOURCE (unrecogn ized section and content) DATE CREATED AUTHOR 01/10/2023 [facility] DATE CREATED AUTHOR AUTHOR'S ORGANIZ ATION 03/13/2025 [facility] DATE CREATED AUTHOR AUTHOR'S ORGANIZ ATION 03/20/2025 [facility] Care Teams (unrecognized sec tion and content) Public Health Worker Relationship Specialty Start Date End Date Nima Villalta MD [address] [place], [place] [id number] PCP - General Family Medicine 07/16/24 Podlogar, KAMINI VicenteN.SIDE STITCHING MACHINE OPERATOR [address] [place] [address] Family Medicine 07/16/24 Public Health Worker Relationship Specialty Start Date End Date Nima Villalta MD [address] [place], [place] [id number] PCP - General Family Medicine 07/16/24 Podlogar, Cinthia, REGISTERED RADIOLOGIC TECHNOLOGIST.SIDE STITCHING MACHINE OPERATOR [address] [place] [address] Family Medicine 07/16/24 Podlogar, Cinthia, REGISTERED RADIOLOGIC TECHNOLOGIST.SIDE STITCHING MACHINE OPERATOR [address] [place] [address] System Validation Engineer Family Medicine 09/17/24 Ilene Elise APRN.SIDE STITCHING MACHINE OPERATOR [address] [place], [place] [id number] System Validation Engineer Family Medicine 09/27/24 Public Health Worker Relationship Specialty Start Date End Date Nima Villalta MD [address] [place], [place] [id number] PCP - General Family Medicine 07/16/24 Podlogar, Cinthia, REGISTERED RADIOLOGIC TECHNOLOGIST.SIDE STITCHING MACHINE OPERATOR [address] [place], [place] [address] Family Medicine 07/16/24 Podlogar, Cinthia, REGISTERED RADIOLOGIC TECHNOLOGIST.SIDE STITCHING MACHINE OPERATOR [address] [place], [place] [id number] System Validation Engineer Family Medicine 09/17/24 Ilene Elise REGISTERED RADIOLOGIC TECHNOLOGIST.SIDE STITCHING MACHINE OPERATOR [address] [place] [id number] System Validation Engineer Family Medicine 09/27/24 Public Health Worker Relationship Specialty Start Date End Date Melany Newberry DO [address] [place] [id number] PCP - General Family Medicine 03/11/25 Podlogar, Cinthia, REGISTERED RADIOLOGIC TECHNOLOGIST.SIDE STITCHING MACHINE OPERATOR [address] [place], [place] [id number] Family Medicine 07/16/24 Podlogar, Cinthia, REGISTERED RADIOLOGIC TECHNOLOGIST.SIDE STITCHING MACHINE OPERATOR [address] [place] [address] System Validation Engineer Family Medicine 09/17/24 Ilene Elise APRN.SIDE STITCHING MACHINE OPERATOR [facility] [place] [address] System Validation Engineer Family Medicine 12/16/24 Public Health Worker Relationship Specialty Start Date End Date Melany Newberry DO [address] [place] [address] PCP - General Family Medicine 03/11/25 Cinthia Lara APRN.CNP [address] [place] [address] Family Medicine 07/16/24 FOR RECORDS PERTAINING TO PATIENTS WHO ARE OR HAVE BEEN ENROLLED IN A CHEMICAL DEPENDENCY/SUBSTANCEABUSE PROGRAM, SOME INFORMATION MAY BE OMITTED. This clinical summary was aggregated from multiple sources. Caution should be exercised in using it in the provision of clinical care. This summary normalizes information from multiple sources, and as a consequence, information in this document may materially change the coding, format and clinical context of patient data. In addition, data may be omitted in some cases. CLINICAL DECISIONS SHOULD BE BASED ON THE PRIMARY CLINICAL RECORDS. [employer] provides no warranty or guarantee of the accuracy or completeness of information in this document.
[2025-07-04 22:00] VITALS: BP 131/76; PULSE 59; RESP 16; O2SAT 99
[2025-07-04 22:25] VITALS: BP 131/76; PULSE 59; RESP 16; TEMP 36.6; O2SAT 99
== END 2025-07-04 22:54 | disposition home or self-care (01) ==
PROVIDERS: Emergency Provider Emergency Medicine; PCP Podiatrist; Visit Provider Emergency Medicine
DX: R10.31 Right lower quadrant pain (principal); F17.210 Nicotine dependence, cigarettes, uncomplicated
CPT/HCPCS: 74177; 80053; 81001; 85025; 96374; 99283; Q9967; A4216